=== PATIENT | male | born 1965 | race Caucasian/White ===

== ENCOUNTER → 2017-03-19 | Outpatient (CLI) | payer BC ==
[~2017-03-19] MED LIST: ALL100 PO; AMLO-114 PO; AMR2 PO; ASPI81TA28 PO; ATOR-22 PO; CETI10TA84 PO; GLC/500 PO; HYDR25TA4 PO; LISI40TA PO; LOSA100T65 PO; LSN40 PO; METF500T5 PO; METH1TAB81 PO; MULT-506 PO; ONDA4TAB7 SL; TRAM-10 PO
--- NOTE | 2017-03-19 13:24 | DIAGNOSTIC IMAGING REPORT ---
RIGHT KNEE RADIOGRAPHS WITH COMPARISON STANDING AP RADIOGRAPH OF THE LEFT KNEE CLINICAL HISTORY: Posterior right knee pain. COMPARISON: None FINDINGS: Comparison standing AP radiograph of left knee show minimal osteophytosis. Alignment of the right knee is anatomic. There is no fracture or suspicious lesion. There is no joint effusion. There is mild joint space narrowing of the patellofemoral compartment with osteophytosis. IMPRESSION: 1. Mild osteoarthritis of the patellofemoral compartment of the right knee. 2. No acute fracture. Electronically signed by: Gutierrez Richards M.D. 03/19/2017 1:22 PM Dictated Date/Time: 03/19/2017 1:21 PM
== END | disposition home or self-care (01) ==
LOC: C.RDSM 13:08
PROVIDERS: ATTEND Physician Assistant
DX: M25.561 Pain in right knee (principal)

== ENCOUNTER → 2017-04-10 | Outpatient (CLI) | payer BC ==
--- NOTE | 2017-04-10 13:55 | DIAGNOSTIC IMAGING REPORT ---
PELVIS AND BILATERAL HIPS 3 VIEWS CLINICAL HISTORY: Bilateral hip pain. COMPARISON STUDY: Pelvis and hips 12/05/2013. 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 Heterotopic ossification surrounding the bilateral hips is not significantly change. No acute fracture or dislocation within the pelvis or hips. The hardware appears intact. No significant periprosthetic lucency. IMPRESSION: Chronic and postoperative changes. No significant change compared to the prior study. No fractures. Electronically signed by: Sergio Arevalo M.D. 04/10/2017 1:54 PM Dictated Date/Time: 04/10/2017 1:51 PM
== END | disposition home or self-care (01) ==
LOC: C.RDSM 13:35
PROVIDERS: ATTEND Physician Assistant
DX: Z96.641 Presence of right artificial hip joint (principal); Z96.642 Presence of left artificial hip joint

== ENCOUNTER → 2017-06-03 | Outpatient (CLI) | payer BC ==
[~2017-06-03] MED LIST changes: -ALL100 PO; -AMR2 PO; -LOSA100T65 PO; -LSN40 PO; -METF500T5 PO
--- NOTE | 2017-06-03 15:27 | DIAGNOSTIC IMAGING REPORT ---
RIGHT ELBOW MIN 3 VIEWS CLINICAL HISTORY: Right elbow pain COMPARISON: None. DISCUSSION: There is mild displacement of the anterior humeral fat pad indicating a small effusion. No acute fractures are visualized. Arthritic changes are evident. There is an olecranon spur. There is spurring arising from the lateral distal humeral condyle IMPRESSION: 1. Small joint effusion 2. Arthritic changes 3. No acute fractures identified on conventional radiographic imaging Electronically signed by: Lc Denton M.D. 06/03/2017 3:26 PM Dictated Date/Time: 06/03/2017 3:25 PM
== END | disposition home or self-care (01) ==
LOC: C.RDSM 10:34
PROVIDERS: ATTEND Physician Assistant
DX: M25.521 Pain in right elbow (principal)

== ENCOUNTER → 2017-06-04 | Outpatient (CLI) | payer BC ==
--- NOTE | 2017-06-04 23:00 | DIAGNOSTIC IMAGING REPORT ---
RIGHT UPPER EXT JOINT WITHOUT CLINICAL HISTORY: 52 years-old Male presenting with RIGHT ELBOW PAIN Right. TECHNIQUE: Multisequence, multiplanar MR imaging of the right elbow was performed without the use of intravenous contrast. IV contrast: None. COMPARISON: Correlation made to plain radiographs of the right elbow from 06/03/2017. FINDINGS: Localizer images: Unremarkable. Elbow joint effusion noted. No bony edema. Loose body noted in the elbow joint along the inferior medial aspect of the radiocapitellar articulation (series 19 image 12). Subchondral cystic change noted along the adjacent medial aspect of the trochlea. Medial collateral ligament complex intact. Lateral collateral ligament complex intact. Intramuscular edema within the brachialis and proximal common flexor myotendinous junction. Triceps tendon with minimal intrasubstance signal possibly indicating tendinosis. Biceps tendon intact. IMPRESSION: No evidence of acute fracture. Elbow joint effusion with degenerative changes most pronounced along the medial trochlea, where there is an adjacent loose body. Intramuscular edema within the brachialis and proximal common flexor myotendinous junction, which could relate to acute muscle strain. Electronically signed by: Luisito Romero M.D. 06/04/2017 10:58 PM Dictated Date/Time: 06/04/2017 10:52 PM
== END | disposition home or self-care (01) ==
LOC: C.MRI 20:21
PROVIDERS: ATTEND Physician Assistant
DX: M25.521 Pain in right elbow (principal); M19.90 Unspecified osteoarthritis, unspecified site; R60.0 Localized edema; M25.421 Effusion, right elbow

== ENCOUNTER → 2017-06-05 | Outpatient (CLI) | payer BC ==
[2017-06-09 09:31] LABS: LYME DNA PCR CSF OR SYNOVIAL Not detected (Not Detected); LYME DNA SOURCE Synovial Fluid
== END | disposition home or self-care (01) ==
LOC: C.LABSPEC 15:14
PROVIDERS: ATTEND Physician Assistant
DX: M17.11 Unilateral primary osteoarthritis, right knee (principal); M24.029 Loose body in unspecified elbow; M25.429 Effusion, unspecified elbow

== ENCOUNTER → 2017-06-16 | Day surgery (SDC) | payer BC ==
[2017-06-12 09:33] VITALS: Ht 190.5 cm; Wt 156.3 kg
--- NOTE | 2017-06-12 10:06 | PAT Medication Instructions ---
Service Date Jun 12, 2017. Current Home Medication List Amlodipine (Norvasc), 10 MG PO QAM Aspirin (Aspirin Ec), 81 MG PO QAM Atorvastatin (Lipitor), 20 MG PO HS Cetirizine (Zyrtec), 10 MG PO QAM Hydrochlorothiazide (Hctz), 25 MG PO QAM Lisinopril (Zestril), 40 MG PO QAM Metformin Hcl (Glucophage), 500 MG PO BID Methylprednisolone (Medrol), 4 MG PO UD Multivitamin (Multivitamin), 1 TAB PO QAM Tramadol (Ultram), 1-2 TAB PO Q4-6HOURS PRN for Pain Medication Instructions For Your Scheduled Surgery Methylprednisolone (Medrol), 4 MG PO UD (completed 06/11/17) - Check with surgeon for instructions; Aspirin (Aspirin Ec), 81 MG PO QAM - Hold the following medications 48 hours prior to surgery: Metformin Hcl (Glucophage), 500 MG PO BID - Hold the following medications the morning of surgery: Cetirizine (Zyrtec), 10 MG PO QAM Hydrochlorothiazide (Hctz), 25 MG PO QAM Lisinopril (Zestril), 40 MG PO QAM Multivitamin (Multivitamin), 1 TAB PO QAM - Take the following medications the morning of surgery with a sip of water: Tramadol (Ultram), 1-2 TAB PO Q4-6HOURS PRN for Pain (okay to take up to 4 hours prior to surgery if needed) Amlodipine (Norvasc), 10 MG PO QAM - Take the following medications as scheduled the night before surgery: Tramadol (Ultram), 1-2 TAB PO Q4-6HOURS PRN for Pain (if needed) Atorvastatin (Lipitor), 20 MG PO HS If you have any questions please call us at [phone] or [phone] or [phone]
[2017-06-12 10:35] LABS: HEMATOCRIT 44.9 % (42-52); MEAN CELL VOLUME 85.4 fL (80-100); MEAN CORPUSCULAR HEMOGLOBIN 29.8 pg (25-34); MEAN PLATELET VOLUME 10.4 fL (7.4-10.4); PLATELET COUNT 244 K/uL (130-400); RED BLOOD COUNT 5.26 M/uL (4.7-6.1); WHITE BLOOD COUNT 9.99 K/uL (4.8-10.8)
[2017-06-12 10:50] LABS: INR 0.9 (0.9-1.1); PARTIAL THROMBOPLASTIN RATIO 1.1; PROTHROMBIN TIME (PATIENT) 10.1 SECONDS (9.0-12.0)
[~2017-06-16] VITALS: Ht 190.5 cm; Wt 156.3 kg
[~2017-06-16] MED LIST changes: +ATROPINE SULFATE 0.1 MG/ML 5ML SYR IV PRN; +CEFAZOLIN 3000 MG/65 ML D5W IV SCH; +DEXAMETHASONE SOD INJ 4 MG/ML VIAL ONE; +EpHEDrine SULFATE INJ 50 MG/ML AMP IV PRN; +FENTANYL CITRATE INJ 50 MCG/1 ML 2 ML VIAL IV PRN; +FENTANYL CITRATE INJ 50 MCG/1 ML 2 ML VIAL ONE; +GLYCOPYRROLATE INJ 0.2 MG/ML VIAL ONE; +HYDROCODONE/ACETAMOPHEN 5/325MG TAB PO PRN; +INSULIN HUMAN REGULAR PER UNIT 5 UNITS in SYRINGE 4.95 ML IV STA; +LACTATED RINGER'S 1000ML 1,000 ML IV SCH; +LIDOCAINE HCL 2% 2 ML VIAL (20MG/ML) ONE; +METOCLOPRAMIDE HCL INJ 5 MG/ML 2 ML VIAL IV STA; +METOCLOPRAMIDE HCL INJ 5 MG/ML 2 ML VIAL ONE; +MIDAZOLAM HCL 1 MG/ML 2ML VIAL ONE; +NEOSTIGMINE METHYLSULFATE 5 MG/5 ML SYR ONE; +NURSING VERBAL MED ORDER ONE; +NovoLIN-R INSULIN PER UNIT CHARGE ONE; -ONDA4TAB7 SL; +ONDANSETRON INJ 2 MG/ML 2 ML VIAL IV PRN; +ONDANSETRON INJ 2 MG/ML 2 ML VIAL ONE; +PROPOFOL IV EMULSION 10 MG/ML 20 ML VIAL IV ONE; +ROCURONIUM BROMIDE 10 MG/ML 5 ML VIAL IV ONE; +SODIUM CHLORIDE 0.9% 1000ML 1,000 ML IV SCH
--- NOTE | 2017-06-16 06:43 | History & Physical Bridge Note ---
H&P Re-Evaluation Bridge Note: I have examined the patient, reviewed the History & Physical and in the interval since the performance of the History & Physical I have noted the following changes of clinical significance: No changes noted
--- NOTE | 2017-06-16 06:45 | Discharge Instructions ---
Discharge Instructions Date of Service Jun 16, 2017. Visit Reason for Visit: Loose Body Right Elbow Discharge Discharge Diagnosis / Problem: same Discharge Goals Goal(s): Decrease discomfort Medications Stopped Medications Name(s): Glucophage stopped x 48 hrs. Restart Stopped Medication(s): resume meds tonight Activity Recommendations Activity Limitations: as noted below Lifting Limitations: until after follow-up appointment Exercise/Sports Limitations: until after follow-up appointment May Resume Sexual Activity: when tolerated Shower/Bathe: keep incision dry Driving or Machine Use: resume 3 days after discharge Anesthesia . Post Anesthesia Instructions: If you have had General Anesthesia or IV Sedation: * Do not drive today. * Resume driving when surgeon permits. * Do not make important decisions or sign legal documents today. * Call surgeon for: 1. Temperature elevations greater than 101 degrees F. 2. Uncontrollable pain. 3. Excessive bleeding. 4. Persistent nausea and vomiting. 5. Medication intolerance (nausea, vomiting or rash). * For nausea and vomiting use only clear liquids such as: tea, soda, bouillon until nausea subsides, then gradually increase diet as tolerated. * If you have any concerns or questions, call your surgeon's office. If physician is unavailable and it is an emergency, call 911 or go to the nearest emergency room. . Instructions / Follow-Up Instructions / Follow-Up DIET: * Resume previous diet. MEDICATIONS: * Please take your prescriptions as instructed at your pre-op appointment and/ or see medication discharge instructions listed above. * If concerns develop, call your physician's office at . SPECIAL CARE INSTRUCTIONS: * Ice/Elevate as instructed. * Keep dressing clean, dry, intact. * Your surgical extremity may be discolored due to prepping agents used on the skin. A bluish-green tint is a normal variant and should not cause alarm. Call your doctor at [phone] if: * Temperature above 101 degrees * Pain not relieved by pain medicine ordered * There is increased drainage or redness from any incision * You have any unanswered questions, problems or concerns. FOLLOW UP VISIT: * If not already scheduled, please call the office at to schedule a follow-up appointment. Diet Recommendations Recommended Home Diet: resume previous diet Procedures Procedures Performed: see op note Pending Studies Studies pending at discharge: no Medical Emergencies . Who to Call and When: Medical Emergencies: If at any time you feel your situation is an emergency, please call 911 immediately. . Non-Emergent Contact Non-Emergency issues call your: Specialist Call Non-Emergent contact if: temperature is above 101.5 . . "Provider Documentation" section prepared by Albino Del Rosario. .
--- NOTE | 2017-06-16 08:45 | [facility] Post Operative Brief Note ---
Immediate Operative Summary Operative Date Jun 16, 2017. Pre-Operative Diagnosis Loose Body Right Elbow Post-Operative Diagnosis Same Procedure(s) Performed Right Elbow Arthroscopic Removal Of Loose Body Surgeon Dr. Del Rosario Fire Apparatus Engineer Surgeon(s) Ananth Lagos PA-C Estimated Blood Loss Trace Findings see op note Fluids (cc crystalloids) 1400cc Specimens None Drains none Anesthesia GET Complication(s) None Disposition Recovery Room / PACU
--- NOTE | 2017-06-16 09:21 | OPERATIVE REPORT ---
DATE OF OPERATION: 06/16/2017 SURGEON: Albino Del Rosario MD TELEMARKETING AGENT: René Lagos PA-C. No resident or fellow available. PREOPERATIVE DIAGNOSIS: Osteochondral loose body, right elbow. POSTOPERATIVE DIAGNOSIS: Same. OPERATION PERFORMED: Arthroscopy of right elbow and debridement and removal osteochondral loose body. PERIOPERATIVE SITUATION: Medically cleared male with intractable elbow pain and catching. Physical exam, x-ray, and MRI scan consistent with the above diagnoses of the right thumb and elbow. He wants to proceed with surgical debridement. DESCRIPTION OF PROCEDURE: The patient was identified, site verified, consent verified, and 3 grams of Ancef confirmed as being given. The right upper extremity was prepped and draped in the usual routine fashion with the patient in the prone position, carefully padded appropriately. Tourniquet was applied and then inflated to 250 mmHg for a total of approximately 35 minutes. An anterior portal made 2 cm proximal to the medial epicondyle just anterior to the humerus. After the joint was then insufflated with 35 mL of saline, the joint was entered without difficulty. Under local control, working laterally, a spinal needle was placed just anterior and distal to the radiocapitellar joint. This allowed good joint and treat. A skin scratch was made with blunt dissection into the elbow joint. Care was taken to protect any of the nerves. The anterior elbow was then debrided. Synovectomy completed. There were no loose bodies noted there. Once this was completed, a posterior portal was made in the soft spot. Immediately encountered was a large loose body. An accessory portal was then made with needle localization posterolaterally, slightly superior. Blunt dissection made after the skin scratch and then, the joint entered posteriorly and then the piece removed after the portal was enlarged. Size of the piece was approximately a 15 mm long, 15 mm wide and 5-6 mm thick. Area was then debrided. No additional pathology was found. There was no other loose debris around the radiocapitellar joint. The procedure was then terminated. All instruments and fluid removed and the 4 portals closed with 3-0 nylon suture. The one large portal for removing the loose body, the accessory superior posterior portal was closed with 2-0 plain and the nylon. Appropriate soft tissue dressing applied and the patient transferred to recovery room in satisfactory condition having tolerated the procedure well. Estimated blood loss trace. Crystalloid 1400 mL. Overall prognosis for this elbow should be good as there was no major degenerative disease noted anteriorly or posteriorly. I attest to the content of the Intraoperative Record and any orders documented therein. Any exceptions are noted below. MTDD
[2017-06-16 10:28] VITALS: TEMP 37.1
--- NOTE | 2017-06-16 10:45 | Anesthesia Progress Nt - [facility] ---
Anesthesia Post Op Note Date & Time Jun 16, 2017 at 10:45 Vital Signs Vital Signs Past 12 Hours Date Time Temp Pulse Resp B/P (MAP) Pulse Ox O2 Delivery O2 Flow Rate FiO2 06/16/17 10:28 37.1 74 20 145/78 (100) 96 06/16/17 09:56 127/80 06/16/17 09:53 65 14 06/16/17 09:53 36.9 95 Room Air 06/16/17 09:53 65 14 94 06/16/17 09:52 66 11 93 06/16/17 09:52 66 11 06/16/17 09:51 146/85 06/16/17 09:47 64 9 06/16/17 09:47 65 9 93 06/16/17 09:46 145/72 06/16/17 09:42 66 17 06/16/17 09:42 66 17 94 06/16/17 09:41 147/70 06/16/17 09:37 71 18 95 06/16/17 09:37 71 18 06/16/17 09:36 151/79 06/16/17 09:32 75 18 06/16/17 09:32 76 18 97 06/16/17 09:31 148/92 06/16/17 09:27 74 21 06/16/17 09:27 74 21 99 06/16/17 09:26 166/89 06/16/17 09:25 74 22 06/16/17 09:25 75 22 99 06/16/17 09:21 160/92 06/16/17 09:20 79 15 06/16/17 09:20 78 15 98 06/16/17 09:16 160/85 06/16/17 09:15 79 13 98 06/16/17 09:15 79 13 06/16/17 09:11 167/88 06/16/17 09:10 81 19 06/16/17 09:10 81 19 98 06/16/17 09:06 160/92 06/16/17 09:05 83 17 97 06/16/17 09:05 83 17 06/16/17 09:01 169/99 06/16/17 09:00 36.7 90 18 169/99 96 Mask 6 06/16/17 09:00 90 06/16/17 09:00 90 183/120 96 06/16/17 06:27 36.7 67 20 160/102 (121) 95 Room Air Notes Mental Status: alert / awake / arousable, participated in evaluation Pt Amnestic to Procedure: Yes Nausea / Vomiting: adequately controlled Pain: adequately controlled Airway Patency, RR, SpO2: stable & adequate BP & HR: stable & adequate Hydration State: stable & adequate Anesthetic Complications: no major complications apparent
--- NOTE | 2017-06-16 10:50 | [facility] Operative Report ---
Operative Report Operative Date Jun 16, 2017. Pre-Operative Diagnosis Loose Body Right Elbow Post-Operative Diagnosis Right elbow same Procedure(s) Performed Right Elbow Arthroscopic debridement, Removal Of Loose Body Surgeon Dr. Del Rosario Monitoring Analyst Surgeon(s) Ananth Lagos PA-C Estimated Blood Loss Trace Findings Right elbow loose body and synovitis Fluids (cc crystalloids) 1400cc Specimens None Drains none Complication(s) None Disposition Recovery Room / PACU Indications This 52-year-old white male presented to the office with complaints of right elbow pain and loss of motion. Preoperative imaging was obtained. He tried conservative care measures without success. He elected to proceed with surgical intervention after being educated about potential risks and outcomes. Description of Procedure Patient was taking the operating room where he was given general anesthesia. He was prepped and draped in usual sterile fashion. Please see Dr. Del Rosario's operative report for specifics of the procedure. I was present for the entire case from initial patient positioning through final wound closure. Assistance was provided in patient positioning, arthroscopy, and final wound closure. Patient was taken to the recovery room in satisfactory condition. I attest to the content of the Intraoperative Record and any orders documented therein. Any exceptions are noted below.
[2017-06-16 10:57] VITALS: BP 122/74; PULSE 73; O2SAT 95
== END | disposition home or self-care (01) ==
LOC: X.SURG 06:03
PROVIDERS: ATTEND Physical Medicine & Rehabilitation Sports Medicine
DX: M24.021 Loose body in right elbow (principal); I10 Essential (primary) hypertension; E78.00 Pure hypercholesterolemia, unspecified; E11.9 Type 2 diabetes mellitus without complications; E66.9 Obesity, unspecified; M19.90 Unspecified osteoarthritis, unspecified site; Z79.82 Long term (current) use of aspirin; Z79.84 Long term (current) use of oral hypoglycemic drugs; Z79.899 Other long term (current) drug therapy

== ENCOUNTER → 2017-07-06 | Outpatient (CLI) | payer BC ==
[~2017-07-06] MED LIST changes: -ATROPINE SULFATE 0.1 MG/ML 5ML SYR IV PRN; -CEFAZOLIN 3000 MG/65 ML D5W IV SCH; -DEXAMETHASONE SOD INJ 4 MG/ML VIAL ONE; -EpHEDrine SULFATE INJ 50 MG/ML AMP IV PRN; -FENTANYL CITRATE INJ 50 MCG/1 ML 2 ML VIAL IV PRN; -FENTANYL CITRATE INJ 50 MCG/1 ML 2 ML VIAL ONE; -GLYCOPYRROLATE INJ 0.2 MG/ML VIAL ONE; -HYDROCODONE/ACETAMOPHEN 5/325MG TAB PO PRN; -INSULIN HUMAN REGULAR PER UNIT 5 UNITS in SYRINGE 4.95 ML IV STA; -LACTATED RINGER'S 1000ML 1,000 ML IV SCH; -LIDOCAINE HCL 2% 2 ML VIAL (20MG/ML) ONE; -METOCLOPRAMIDE HCL INJ 5 MG/ML 2 ML VIAL IV STA; -METOCLOPRAMIDE HCL INJ 5 MG/ML 2 ML VIAL ONE; -MIDAZOLAM HCL 1 MG/ML 2ML VIAL ONE; -NEOSTIGMINE METHYLSULFATE 5 MG/5 ML SYR ONE; -NURSING VERBAL MED ORDER ONE; -NovoLIN-R INSULIN PER UNIT CHARGE ONE; -ONDANSETRON INJ 2 MG/ML 2 ML VIAL IV PRN; -ONDANSETRON INJ 2 MG/ML 2 ML VIAL ONE; -PROPOFOL IV EMULSION 10 MG/ML 20 ML VIAL IV ONE; -ROCURONIUM BROMIDE 10 MG/ML 5 ML VIAL IV ONE; -SODIUM CHLORIDE 0.9% 1000ML 1,000 ML IV SCH
--- NOTE | 2017-07-06 10:36 | DIAGNOSTIC IMAGING REPORT ---
MRI OF THE RIGHT KNEE WITHOUT CONTRAST CLINICAL HISTORY: Osteoarthritis of right knee. Severe right knee pain. COMPARISON STUDY: Right knee radiograph March 19, 2017. TECHNIQUE: Utilizing a 1.5 Anna magnet and dedicated coil, multiplanar, multiecho imaging of the right knee was performed without intravenous or intraarticular contrast. FINDINGS: Alignment of the right knee is anatomic. There is no suspicious marrow replacement. There is no significant marrow edema. Extensor mechanism is intact. There is a small to moderate right knee joint effusion. The anterior and posterior cruciate ligaments are intact. The medial collateral ligament and lateral collateral ligament complex are also intact. No medial meniscal tear is identified although there is intrasubstance signal within the posterior horn of the medial meniscus without definite articular extension. There is a severe complex tear of the lateral meniscus which involves the entirety of the lateral meniscus which is partially extruded. An adjacent complex multiloculated cystic abnormality is noted along the lateral joint space. The largest component measures 2.8 x 2.7 x 0.9 cm. There is mild chondrosis within the medial compartment note is made of moderate chondrosis within the patellofemoral compartment and severe chondrosis within the lateral compartment. IMPRESSION: 1. Severe complex tear of the lateral meniscus which involves the entirety of the lateral meniscus which is partially extruded. Multiloculated cystic abnormality lateral to the joint space and meniscus which suggests a multiloculated parameniscal cyst. 2. Severe chondrosis within the lateral compartment, moderate chondrosis within the patellofemoral compartment and mild chondrosis within the medial compartment. 3. Intact cruciate and collateral ligaments. 4. Small to moderate right knee joint effusion. Electronically signed by: Gutierrez Richards M.D. 07/06/2017 10:35 AM Dictated Date/Time: 07/06/2017 10:26 AM
== END | disposition home or self-care (01) ==
LOC: C.MRI 09:01
PROVIDERS: ATTEND Physical Medicine & Rehabilitation Sports Medicine
DX: M17.11 Unilateral primary osteoarthritis, right knee (principal)

== ENCOUNTER → 2017-07-27 | Outpatient (CLI) | payer BC ==
[~2017-07-27] MED LIST changes: -METH1TAB81 PO; -TRAM-10 PO
--- NOTE | 2017-07-27 10:49 | DIAGNOSTIC IMAGING REPORT ---
RENAL ULTRASOUND CLINICAL HISTORY: Chronic kidney disease. COMPARISON STUDY: None. TECHNIQUE: Sonography of the kidneys and the urinary bladder was performed. FINDINGS: Incidental note is made of probable fatty infiltration of the liver. There is no hydronephrosis. The right kidney measures 11.2 x 4.4 x 4.4 cm and the left measures 10.6 x 5.3 x 5.7 cm. Renal echogenicity, size and cortical thickness are normal. No calculi or renal masses are identified by sonography. The right ureteral jet was not visualized. IMPRESSION: 1. No hydronephrosis. 2. Unremarkable sonographic appearance of the kidneys. 3. Probable fatty infiltration of the liver. Electronically signed by: Gutierrez Richards M.D. 07/27/2017 10:48 AM Dictated Date/Time: 07/27/2017 10:46 AM
== END | disposition home or self-care (01) ==
LOC: C.ULTR 09:40
PROVIDERS: ATTEND Family Medicine
DX: N18.9 Chronic kidney disease, unspecified (principal)

== ENCOUNTER → 2017-07-28 | Day surgery (SDC) | payer BC ==
[2017-07-16 07:56] VITALS: Ht 190.5 cm; Wt 156.4 kg
[~2017-07-28] VITALS: Ht 190.5 cm; Wt 156.4 kg
[~2017-07-28] MED LIST changes: +ACETAMINOPHEN 1000 MG/100 ML IV IV SCH; +ATROPINE SULFATE 0.1 MG/ML 5ML SYR IV PRN; +BUPIVACAINE/EPINEPHRINE 0.5% MPF 1:200,000 30 ML VIAL ONE; +CEFAZOLIN 3000 MG/65 ML D5W IV SCH; +DEXAMETHASONE SOD INJ 4 MG/ML VIAL ONE; +EpHEDrine SULFATE INJ 50 MG/ML AMP IV PRN; +FENTANYL CITRATE INJ 50 MCG/1 ML 2 ML VIAL IV PRN; +FENTANYL CITRATE INJ 50 MCG/1 ML 2 ML VIAL ONE; +HYDROmorphone INJ 1 MG/ML SYR IV PRN; +INSULIN HUMAN REGULAR PER UNIT 6 UNITS in SYRINGE 0 ML IV SCH; +INSULIN HUMAN REGULAR PER UNIT 6 UNITS in SYRINGE 0 ML IV STA; +KETOROLAC TROMETHAMINE 30 MG/ML VIAL ONE; +LIDOCAINE HCL 2% 2 ML VIAL (20MG/ML) ONE; +MIDAZOLAM HCL 1 MG/ML 2ML VIAL ONE; +MORPHINE SULFATE PF 2MG/2ML SYR ONE; +NovoLIN-R INSULIN PER UNIT CHARGE ONE; +ONDANSETRON INJ 2 MG/ML 2 ML VIAL IV PRN; +ONDANSETRON INJ 2 MG/ML 2 ML VIAL ONE; +PROPOFOL IV EMULSION 10 MG/ML 20 ML VIAL IV ONE; +SODIUM CHLORIDE 0.9% 1000ML 1,000 ML IV SCH
--- NOTE | 2017-07-28 06:47 | Discharge Instructions ---
Discharge Instructions Date of Service Jul 28, 2017. Visit Reason for Visit: Right Knee Lateral Meniscus Tear Discharge Discharge Diagnosis / Problem: same/djd Discharge Goals Goal(s): Decrease discomfort, Improve function Medications Stopped Medications Name(s): Metformin, last dose 07/25/17 Activity Recommendations Activity Limitations: as noted below Lifting Limitations: until after follow-up appointment Exercise/Sports Limitations: until after follow-up appointment May Resume Sexual Activity: when tolerated Shower/Bathe: keep incision dry Driving or Machine Use: resume 1 day after discharge Weightbearing Status: Right weightbearing (as tolerated) Anesthesia . Post Anesthesia Instructions: If you have had General Anesthesia or IV Sedation: * Do not drive today. * Resume driving when surgeon permits. * Do not make important decisions or sign legal documents today. * Call surgeon for: 1. Temperature elevations greater than 101 degrees F. 2. Uncontrollable pain. 3. Excessive bleeding. 4. Persistent nausea and vomiting. 5. Medication intolerance (nausea, vomiting or rash). * For nausea and vomiting use only clear liquids such as: tea, soda, bouillon until nausea subsides, then gradually increase diet as tolerated. * If you have any concerns or questions, call your surgeon's office. If physician is unavailable and it is an emergency, call 911 or go to the nearest emergency room. . Instructions / Follow-Up Instructions / Follow-Up The following are instructions to follow after your Arthroscopic Knee Surgery. ACTIVITY RECOMMENDATIONS: * Minimize activity until your first visit after surgery. * No excessive walking, jogging, sports or laboring. * Return to activity is individualized. Most patients are able to return to every day activities within one month. * Return to sports or intensive labor usually occurs at 2-3 months. * Driving is not permitted until at least your first postoperative visit at a minimum. Please ask your doctor when it is safe to resume driving. If you have an automatic vehicle and your left leg has been operated on, then you may begin driving as soon as you are comfortable and can drive safely. SCHOOL/WORK RECOMMENDATIONS: * You may return to sedentary work or school when you are feeling more comfortable. This is usually 3-7 days after surgery. * Expect increased discomfort with increased activity. Continue to elevate and ice the leg as much as possible. MEDICATIONS: * You will have a prescription for pain medication and an anti-inflammatory medication after surgery. * Use the pain medication for severe pain and the anti-inflammatory for less severe pain. Once the pain medication has run out, try to use the anti-inflammatory medication. If this is not effective, contact the office for assistance. * The pain medication may cause nausea, constipation and drowsiness. You should see how they affect you before driving or similar activity. * The anti-inflammatory medication may cause stomach upset and bleeding. If this occurs let your doctor know immediately . * Take a stool softener like Colace or a laxative like Senokot to prevent constipation. DIET: * Resume previous diet. SPECIAL CARE: ICE: You have the option of an ice cooler, gel packs or ice bags. * If you have an ice cooler, refer to the instructions for that device. The ice cooler may be used continuously. * If you do not have an ice cooler, you will need to use ice bags or gel packs. Do not apply ice directly to the skin. Use a thin dressing or collette shirt between the skin and ice bag. Apply ice for 20-30 minutes and repeat every 2-4 hours. This is especially important for the first 7-10 days after surgery. Once the pain improves, use ice as needed. ELEVATION: * Keep your leg elevated at or above the level of your heart as much as possible. * Expect some increased discomfort and swelling if you are standing for any length of time. * When lying down, avoid placing anything under your knee. Rather, prop your leg up by placing several pillows under your heel or calf. DRESSING: * Your dressing will be changed at your first therapy appointment approximately 4-5 days after surgery. Band-aids, tape strips or gauze may be applied. You may then change your dressing daily. * Reapply dressing followed by the Blair wrap or Tubi-district manager stockinet and EBIce cooling pad (if chosen). * Always wash your hands prior to touching the incision area. * Once the stitches are removed, you may leave the wound open to air or cover with an Blair wrap or Tubi-district manager stockinet. * If you have been given a white elastic stocking (BESSIE hose), wear as much as possible for the first 1-3 weeks depending on swelling. * Expect some bloody drainage for the first few days after surgery. * Leave the tape strips, if present, in place for 5-7 days. * Band-aids and gauze may be changed daily. CRUTCHES: * You will need to use crutches after surgery. * You may gradually progress to full weight bearing as tolerated and wean off the crutches unless otherwise advised. * Your therapist can provide assistance weaning off crutches. * Patients who have a microfracture done may need to be toe-touch weight- bearing for 4-6 weeks. BATHING: * You may shower or sponge-bathe immediately after surgery. * The dressing will need to be covered with a plastic bag or plastic wrap until the dressing is changed on the fourth or fifth day after surgery. * Once the dressing has been changed on the fourth or fifth day after surgery, you may shower and get the incision wet. * Wash with regular soap and water. * Do not bathe (submerge the incision), soak, swim or use a hot tub until the incision is completely healed over with normal skin and the doctor has given the OK to proceed. * There is no need to apply any ointments, powders or salves to your incision. * Do not apply alcohol or hydrogen peroxide directly to the incision. * Diluted peroxide (50:50 mixture with sterile saline) may be used to clean dried blood from around the incision area. BRACE: * Bracing is generally not needed after routine Arthroscopic Knee surgery. THERAPY: * You will begin therapy four or five days after surgery. * Organized therapy with the therapist is important for the first 4-6 weeks after surgery. During that time you will attend therapy 1-3 times per week. * You will also need to do daily exercises for range of motion and strength as instructed. PROBLEMS/QUESTIONS: * If you have any problems such as severe pain, numbness, tingling or high fevers or if you have any questions, please contact the office at [phone]. * It is not uncommon to have some numbness and tingling after the surgery especially if you have had a nerve block done. This should gradually improve over the first 1- 2 days. If this persists longer or worsens please contact the office. FOLLOW UP VISIT: * If not already scheduled, please call the office at to schedule a follow-up appointment for 10 days, 6 weeks and 3 months after surgery. Diet Recommendations Recommended Home Diet: diabetes diet Procedures Procedures Performed: see op note Pending Studies Studies pending at discharge: no Medical Emergencies . Who to Call and When: Medical Emergencies: If at any time you feel your situation is an emergency, please call 911 immediately. . Non-Emergent Contact Non-Emergency issues call your: Specialist Call Non-Emergent contact if: temperature is above 101.5, wound has increased drainage, wound has increased redness, wound has increased pain . . "Provider Documentation" section prepared by Albino Del Rosario. .
[2017-07-28] MEDS: LACTATED RINGER'S 1000ML 1,000 ML IV SCH ×2 (06:56→08:36)
--- NOTE | 2017-07-28 07:44 | [facility] Post Operative Brief Note ---
Immediate Operative Summary Operative Date Jul 28, 2017. Pre-Operative Diagnosis Right Knee Lateral Meniscus Tear/djd Post-Operative Diagnosis Same Procedure(s) Performed Right Knee Arthroscopy, Partial Lateral Meniscectomy, Chondroplasty Patellar Femoral Joint Lateral Compartment, Exam Under Anesthesia Surgeon Dr. Del Rosario School Bus Driver/Teacher Assistant Surgeon(s) Dr. Bryant; Valerie Lau PA-C Estimated Blood Loss Trace Findings see op note Fluids (cc crystalloids) 650cc Specimens None Drains none Anesthesia LMA/IA block Complication(s) None Disposition Recovery Room / PACU
--- NOTE | 2017-07-28 07:55 | [facility] Operative Report ---
Operative Report Operative Date Jul 28, 2017. Pre-Operative Diagnosis Right Knee Lateral Meniscus Tear/djd Post-Operative Diagnosis Same Procedure(s) Performed Right Knee Arthroscopy, Partial Lateral Meniscectomy, Chondroplasty Patellar Femoral Joint Lateral Compartment, Exam Under Anesthesia Surgeon Dr. Del Rosario Dining Room Supervisor Surgeon(s) Dr. Bryant; Valerie Lau PA-C Estimated Blood Loss Trace Findings NA Fluids (cc crystalloids) 650cc Specimens None Complication(s) None Disposition Recovery Room / PACU I attest to the content of the Intraoperative Record and any orders documented therein. Any exceptions are noted below.
--- NOTE | 2017-07-28 08:11 | OPERATIVE REPORT ---
DATE OF OPERATION: 07/28/2017 SURGEON: Albino Del Rosario MD SOFTWARE APPLICATIONS ENGINEER: Manny. SECOND SOFTWARE APPLICATIONS ENGINEER: Sid. PREOPERATIVE DIAGNOSIS: Lateral meniscus tear with degeneration of his lateral compartment of his right knee. POSTOPERATIVE DIAGNOSIS: Same with degenerative joint disease patellofemoral joint. OPERATIONS PERFORMED: 1. Exam under anesthesia. 2. Diagnostic arthroscopy. 3. Extensive chondroplasty, lateral compartment and patellofemoral joint. 4. Partial lateral meniscectomy. PERIOPERATIVE SITUATION: Medically cleared male with intractable knee pain who has significant discomfort. Physical exam, x-ray and MRI scan consistent with degenerative lateral meniscus tear. He is only 52, so it was elected to proceed with arthroscopic debridement even though we know he has degenerative disease to try to preserve his knee for as long as possible. He understands this may not completely eliminate his symptoms. Consent was obtained, see list. DESCRIPTION OF PROCEDURE: The patient appropriately identified, site verified, consent verified, 3 grams of Ancef confirmed as being given. The right lower extremity was prepped in the usual routine fashion. Care taken to protect his hips. He has bilateral hip replacements. The knee was then sterilely injected with 20 mL of 0.5% Marcaine with epinephrine and 5 mg Duramorph for postoperative pain control. The portals were then injected with 3 mL of 0.5% Marcaine with epinephrine. Inspection of the joint revealed extensive synovitis. This was all debrided at the end of the case and pathologic plica medially was resected at the end. The medial compartment had some minor scuffing and some minor creasing of the medial meniscus, but no unstable flaps. The ACL and PCL were normal. The lateral compartment had grade 3-4 changes and unstable flaps were debrided. The lateral meniscus had a significant horizontal cleavage tear with unstable flaps and this was debrided to a stable base. The patellofemoral joint was then debrided of some articular disease and some synovitis. The articular surface, the disease of the trochlea was about 50% thickness and 50% size. The lateral compartment was grade 3+ throughout the entire distal femur and about 50% of the meniscus was resected. The procedure was then terminated after knee was copiously irrigated. All instruments and fluid removed. The portals closed with 4-0 nylon, dressed with Xeroform, 4 x 4 gauze, sterile Webril, ABD pads, above knee BESSIE stocking. Overall prognosis for this knee is guarded. DVT prophylaxis with Lovenox. Start tomorrow. I attest to the content of the Intraoperative Record and any orders documented therein. Any exception s are noted below.
--- NOTE | 2017-07-28 08:17 | Anesthesiology Progress Note ---
Anesthesia Post Op Note Date & Time Jul 28, 2017 at 08:16 Vital Signs Pain Intensity: 0 Vital Signs Past 12 Hours Date Time Temp Pulse Resp B/P (MAP) Pulse Ox O2 Delivery O2 Flow Rate FiO2 07/28/17 07:54 36.5 84 16 98/56 98 Mask 6 07/28/17 06:28 36.5 83 18 125/74 (91) 96 Room Air Notes Mental Status: alert / awake / arousable, participated in evaluation Pt Amnestic to Procedure: Yes Nausea / Vomiting: adequately controlled Pain: adequately controlled Airway Patency, RR, SpO2: stable & adequate BP & HR: stable & adequate Hydration State: stable & adequate Anesthetic Complications: no major complications apparent Anesthetic Complications: Blood sugar preop was 522 - given 6 units of IV insulin before going to the OR. Recheck 1 hour later was blood sugar of 472. Additional 6 units of insulin given. recheck 30 minutes later 411. Patient otherwise doing well. Patient instructed to take his normal dose of metformin as soon as he arrives home from the surgical center.
[2017-07-28 10:09] VITALS: BP 117/73; PULSE 73; TEMP 36.2; O2SAT 100
== END | disposition home or self-care (01) ==
LOC: X.SURG 06:14
PROVIDERS: ATTEND Physical Medicine & Rehabilitation Sports Medicine
DX: M23.200 Derangement of unspecified lateral meniscus due to old tear or injury, right knee (principal); M17.11 Unilateral primary osteoarthritis, right knee; I10 Essential (primary) hypertension; E11.9 Type 2 diabetes mellitus without complications; E78.00 Pure hypercholesterolemia, unspecified; E66.01 Morbid (severe) obesity due to excess calories; Z68.41 Body mass index [BMI] 40.0-44.9, adult; Z98.890 Other specified postprocedural states; Z96.643 Presence of artificial hip joint, bilateral; Z79.82 Long term (current) use of aspirin; Z79.899 Other long term (current) drug therapy; Z86.718 Personal history of other venous thrombosis and embolism; Z83.3 Family history of diabetes mellitus; Z82.49 Family history of ischemic heart disease and other diseases of the circulatory system

== ENCOUNTER → 2017-08-10 | Outpatient (CLI) | payer BC ==
--- NOTE | 2017-08-07 14:55 | DIAGNOSTIC IMAGING REPORT ---
RIGHT KNEE 4 VIEWS HISTORY: RT KNEE PAIN COMPARISON: Right knee 03/19/2017. FINDINGS: There is no fracture or dislocation. Small to moderate knee effusion. Tiny tricompartmental marginal osteophytes. Mild cartilage space narrowing within the lateral compartment of the knees. No radiopaque foreign bodies. IMPRESSION: 1. Small to moderate right knee effusion. 2. No acute fractures. 3. Mild right knee osteoarthritis, unchanged Electronically signed by: Sergio Arevalo M.D. 08/07/2017 2:54 PM Dictated Date/Time: 08/07/2017 2:52 PM
[~2017-08-10] MED LIST changes: -ACETAMINOPHEN 1000 MG/100 ML IV IV SCH; -ATROPINE SULFATE 0.1 MG/ML 5ML SYR IV PRN; -BUPIVACAINE/EPINEPHRINE 0.5% MPF 1:200,000 30 ML VIAL ONE; -CEFAZOLIN 3000 MG/65 ML D5W IV SCH; -DEXAMETHASONE SOD INJ 4 MG/ML VIAL ONE; -EpHEDrine SULFATE INJ 50 MG/ML AMP IV PRN; -FENTANYL CITRATE INJ 50 MCG/1 ML 2 ML VIAL IV PRN; -FENTANYL CITRATE INJ 50 MCG/1 ML 2 ML VIAL ONE; -HYDR25TA4 PO; -HYDROmorphone INJ 1 MG/ML SYR IV PRN; -INSULIN HUMAN REGULAR PER UNIT 6 UNITS in SYRINGE 0 ML IV SCH; -INSULIN HUMAN REGULAR PER UNIT 6 UNITS in SYRINGE 0 ML IV STA; -KETOROLAC TROMETHAMINE 30 MG/ML VIAL ONE; -LIDOCAINE HCL 2% 2 ML VIAL (20MG/ML) ONE; -MIDAZOLAM HCL 1 MG/ML 2ML VIAL ONE; -MORPHINE SULFATE PF 2MG/2ML SYR ONE; -NovoLIN-R INSULIN PER UNIT CHARGE ONE; -ONDANSETRON INJ 2 MG/ML 2 ML VIAL IV PRN; -ONDANSETRON INJ 2 MG/ML 2 ML VIAL ONE; -PROPOFOL IV EMULSION 10 MG/ML 20 ML VIAL IV ONE; -SODIUM CHLORIDE 0.9% 1000ML 1,000 ML IV SCH
== END | disposition home or self-care (01) ==
LOC: C.RDSM 17:04
PROVIDERS: ATTEND Physical Medicine & Rehabilitation Sports Medicine
DX: R52 Pain, unspecified (principal); M25.461 Effusion, right knee

== ENCOUNTER → 2017-11-10 | Outpatient (CLI) | payer BC ==
[~2017-11-10] MED LIST changes: +ALL100 PO; +AMR2 PO; -GLC/500 PO; -LISI40TA PO; +LSN40 PO; +METF500T5 PO
--- NOTE | 2017-11-10 16:04 | DIAGNOSTIC IMAGING REPORT ---
L KNEE 4 OR MORE CLINICAL HISTORY: LEFT KNEE PAIN pain COMPARISON: None. DISCUSSION: Moderate degenerative change of the medial and to lesser extent lateral joint compartments bilaterally. Moderate degenerative change patellofemoral joints. Small left knee joint effusion. No acute bony abnormality. There is no evidence for soft tissue swelling. IMPRESSION: Small left knee joint effusion. Moderate degenerative change of all major joint compartments of the knees bilaterally. The above report was generated using voice recognition software. It may contain grammatical, syntax or spelling errors. Electronically signed by: Rambo Murillo M.D. 11/10/2017 4:02 PM Dictated Date/Time: 11/10/2017 4:00 PM
== END | disposition home or self-care (01) ==
LOC: C.RDSM 08:00
PROVIDERS: ATTEND Physician Assistant
DX: M25.562 Pain in left knee (principal)

== ENCOUNTER 2019-11-09 06:15 | Inpatient (IN) ==
--- NOTE | 2019-10-11 12:23 | Anesthesiology Consultation ---
Date of Service October 11, 2019 Assessment & Plan (1) Encounter for pre-operative examination: CHECK BSG AM DOS Chart Review Chart Review: Acceptable Risk for Surgery (pending surgeon ordered PCP clearance done 10/10) and Patient seen in Pre Admission Testing Teaching & Discussion Instructed NPO after midnight before surgery, except medications with 15 cc of water. Medication instructions provided according to the PAT guidelines. History Surgery Operation Date: 11/09/19 08:50 Proposed Procedures p Left Total Knee Arthroplasty - Albino Del Rosario MD Height/Weight Height: 6 ft Weight: 166.7 kg Allergies Allergy/AdvReac Type Severity Reaction Status Date / Time No Known Allergies Allergy Verified 10/05/19 15:06 Medications Home Medications Medication Instructions Recorded Confirmed Last Taken amlodipine 10 mg PO QAM 03/08/19 10/05/19 03/21/19 06:10 aspirin [Aspir-81] 81 mg PO QAM 03/08/19 10/05/19 03/21/19 06:10 atorvastatin [Lipitor] 20 mg PO HS 03/08/19 10/05/19 03/21/19 21:00 cetirizine 10 mg PO QAM 03/08/19 10/05/19 03/21/19 06:10 glimepiride 2 mg PO QAM 03/08/19 10/05/19 03/21/19 06:10 losartan 100 mg PO QAM 03/08/19 10/05/19 03/21/19 06:10 metformin 750 mg PO PM 03/08/19 10/05/19 03/21/19 21:00 acetaminophen 1,000 mg PO Q6H PRN 03/22/19 10/05/19 03/20/19 ibuprofen 200 - 800 mg PO Q6H PRN 10/05/19 10/05/19 Unknown Past Medical History Medical History Arthritis Diabetes mellitus, type 2 Hx of gout Hyperlipidemia Hypertension Morbid obesity Osteoarthritis Exercise / Class Metabolic Activity II 4-5 Yardwork/Stairs/Walk up hill (Denies CP or SOB with 1 FOS) Past Family History Family History Father Obesity Diabetes Mother Hypertension Past Surgical History Surgical History Difficult airway for intubation 8/29/17 - Glidescope #4, ETT #8.0, HiLo Oral, Grade 1 View, Cords Clear, Atraumatic x 1 attempt H/O elbow surgery RIGHT SCOPE 06/16/17 - Glidescope #4, ETT #8.0, HiLo Oral, Grade 1 View, Cords Clear, Atraumatic x 1 attempt History of arthroscopy RIGHT KNEE History of arthroscopy of left knee History of total hip arthroplasty BILATERAL Past Anesthesia History No Hx of Anesthesia Complications, Difficult Airway (per records) and No Family Hx of Anesthesia Complications History of PONV No Hx of PONV and No Hx of Motion Sickness Social History Smoking Status: Never smoker Do You Dip or Chew Tobacco: Yes (1 CAN EVERY 3 DAYS, ADVISED NONE X 8 HOURS PRIOR TO SURGERY) Hx Alcohol Use: Yes Alcohol type: beer and hard liquor alcohol intake frequency: holidays/special occasions only Hx Substance Use: No substance use type: does not use Review of Systems Pt denies any recent chest pain, shortness of breath, palpitations, cough, fever or URI. Physical Exam Vital Signs BP: 148/78 P: 78bpm SPO2: 98% RA T: 98.8 F R: 20 Constitutional + morbidly obese ENMT Mouth: no dental restorations, no chipped teeth and no loose teeth Thyromental Distance: > or= 3.5 Finger Breadths (4) Mallampati Class: III Neck + thick neck (VERY); neck extension not limited Respiratory normal respiratory effort Auscultation: lungs clear to auscultation bilaterally and + diminished lung sounds (B/L) Cardiovascular Rate/Rhythm: regular rate and regular rhythm Heart Sounds: no murmur Vessels: no carotid bruit Testing Laboratory Results 10/11/19 12:05 PT 9.9 Seconds (9.0-12.0) 10/11/19 12:05 INR 1.0 (0.9-1.1) 10/11/19 12:05 APTT 27.3 Seconds (21.0-31.0) 10/11/19 12:05 Urine Color Dark Yellow 10/11/19 Unknown Urine Appearance Clear (Clear) 10/11/19 Unknown Urine pH 5.5 (4.5-7.5) 10/11/19 Unknown Ur Specific [place] 1.026 (1.000-1.030) 10/11/19 Unknown Urine Protein Negative (Negative) 10/11/19 Unknown Urine Glucose (UA) Negative (Negative) 10/11/19 Unknown Urine Ketones Trace (Negative) H 10/11/19 Unknown Urine Nitrite Negative (Negative) 10/11/19 Unknown Ur Leukocyte Esterase Negative (Negative) 10/11/19 Unknown 10/10/19 SODIUM: 140 POTASSIUM: 5.1 CHLORIDE: 103 CO2: 28 BUN: 20 CREATININE: 1.39 GLUCOSE: 143 A1C: 6.7% Electrocardiogram Date: 10/03/19 Findings: + NSR @ (68bpm) Left axis deviation. Chest X-Ray Date: 10/11/19 Findings: + NAD
--- NOTE | 2019-10-11 12:28 | PAT Medication Instructions ---
Medication Instructions Date of Service October 11, 2019 Home Medications amlodipine 10 mg PO QAM aspirin [Aspir-81] 81 mg PO QAM atorvastatin [Lipitor] 20 mg PO HS cetirizine 10 mg PO QAM glimepiride 2 mg PO QAM losartan 100 mg PO QAM metformin 750 mg PO PM acetaminophen 1,000 mg PO Q6H PRN ibuprofen 200 - 800 mg PO Q6H PRN ASK your surgeon for instructions ibuprofen 200 - 800 mg PO Q6H PRN DO NOT take the morning of surgery cetirizine 10 mg PO QAM glimepiride 2 mg PO QAM losartan 100 mg PO QAM Take morning of surgery With a small sip of water, OTHERWISE NOTHING TO EAT OR DRINK AFTER MIDNIGHT: amlodipine 10 mg PO QAM aspirin [Aspir-81] 81 mg PO QAM acetaminophen 1,000 mg PO Q6H PRN (if needed, may be taken up to four hours before surgery) Take evening before surgery atorvastatin [Lipitor] 20 mg PO HS metformin 750 mg PO PM acetaminophen 1,000 mg PO Q6H PRN Other Notes If you have any questions please call us at [phone] or [phone] or [phone] or [phone]
--- NOTE | 2019-10-11 13:04 | XRay Report ---
XR chest Pre-admission PA/Lat HISTORY: 54 years-old Male pat preoperative exam. COMPARISON: Chest radiograph 08/20/2017 TECHNIQUE: PA and lateral views of the chest FINDINGS: Cardiac silhouette is enlarged, unchanged. No pneumothorax, pleural effusion, focal airspace consolid ation or overt pulmonary edema. Degenerative changes of the shoulders and spine. IMPRESSION: No acute process. ACT 112: Negative or not required by law. The above report was generated using voice recognition software. It may contain grammatical, syntax o r spelling errors. Electronically signed by: Tera Monaco M.D. 10/11/2019 1:03 PM
[2019-10-11 13:23] LABS: Basophils # (auto) 0.02 K/uL (0-0.2); Basophils % (auto) 0.2 %; Eosinophils # (auto) 0.31 K/uL (0-0.5); Eosinophils % (auto) 3.8 %; Hemoglobin 14.3 g/dL (14.0-18.0); Immature Granulocytes # (auto) 0.02 K/uL (0.00-0.02); Immature Granulocytes % (auto) 0.2 %; Lymphocytes # (auto) 3.08 K/uL (1.2-3.4); Lymphocytes % (auto) 37.5 %; Mean Corpuscular Hemoglobin 28.7 pg (25-34); Mean Corpuscular Hgb Conc 33.3 g/dL (32-36); Mean Corpuscular Volume 86.3 fL (80-100); Mean Platelet Volume 10.3 fL (7.4-10.4); Monocytes # (auto) 0.59 K/uL (0.11-0.59); Monocytes % (auto) 7.2 %; Neutrophils # (auto) 4.19 K/uL (1.4-6.5); Neutrophils % (auto) 51.1 %; Platelet Count 243 K/uL (130-400); RDW Coefficient of Variation 13.4 % (11.5-14.5); RDW Standard Deviation 41.8 fL (36.4-46.3); Red Blood Count 4.98 M/uL (4.7-6.1); White Blood Count 8.21 K/uL (4.8-10.8)
[2019-10-11 13:37] LABS: Appearance Urine Clear (Clear); Bilirubin Urine Negative (Negative); Blood Urine Negative (Negative); Color Urine Dark Yellow; Glucose Urine UA Negative (Negative); Ketones Urine Trace (Negative); Leukocyte Esterase Urine Negative (Negative); Nitrite Urine Negative (Negative); Protein Urine Negative (Negative); Specific Gravity Urine 1.026 (1.000-1.030); Urobilinogen Urine Negative (Negative); pH Urine 5.5 (4.5-7.5)
[2019-10-11 13:40] LABS: Partial Thromboplastin Time 27.3 Seconds (21.0-31.0); Prothrombin Time 9.9 Seconds (9.0-12.0)
--- NOTE | 2019-10-13 12:31 | History and Physical Report ---
DATE OF ADMISSION: 11/09/2019 CHIEF COMPLAINT: Left knee pain. HISTORY OF PRESENT ILLNESS: This 54-year-old white male presents to the office with complaints of left knee pain that has been ongoing since 2018. It became worse in December of 2018. No specific injury. He previously had a steroid injection in the knee around [place] of last year that did not provide much relief. No catching or locking. No buckling. Pain is worse with weightbearing. It is affecting his ADLs. He notes occasional effusions. He previously underwent left knee arthroscopy with debridement and meniscectomy that showed end-stage DJD of the knee. He now elects to proceed with left total knee arthroplasty. No other complaints. Preoperative imaging has been obtained. PAST MEDICAL HISTORY: Significant for hypertension, elevated cholesterol, diabetes, obesity, osteoarthritis. PAST SURGICAL HISTORY: Bilateral hip replacements, right elbow arthroscopy, right knee arthroscopy, left knee arthroscopy March 22, 2019. SOCIAL HISTORY: The patient is . Employed. No tobacco use. No ETOH use. ALLERGIES: NKDA. CURRENT MEDICATIONS: Allopurinol 100 mg p.o. daily, amlodipine 10 mg p.o. daily, amoxicillin 500 mg p.r.n. with dental visits, aspirin 81 mg daily, atorvastatin 20 mg p.o. at bedtime, Zyrtec 10 mg daily p.r.n., glimepiride 2 mg p.o. daily, losartan 100 mg p.o. daily, metformin 750 mg p.o. daily. FAMILY HISTORY: Significant for heart disease, history of CABG, diabetes, hypertension, and obesity. REVIEW OF SYSTEMS: A total of 10 systems are reviewed and are significant only for above stated conditions. PHYSICAL EXAMINATION: VITAL SIGNS: Height 187.5 cm, weight 166.3 kilograms. BMI 47.3, temperature 37.0 oral, BP 138/88, pulse 75, O2 sat 95% on room air. GENERAL: Well-developed, well-nourished, morbidly obese, large middle-aged white male in no acute distress. Sitting in a chair. Alert and oriented. SKIN: Warm and dry with good turgor. No rashes or lesions. No ecchymosis or erythema. Mild intraarticular effusion in the left knee. HEENT: Normocephalic, atraumatic. Eyes PERRLA, EOMI. Nares patent bilaterally without turbinate enlargement. Oropharynx without erythema or exudate. No lesions noted. Uvula midline. Oral mucosa moist. Dental fillings are noted. HEART: RRR. No MGR. LUNGS: Clear to auscultation bilaterally. No crackles, rhonchi or wheezing. Good air movement. ABDOMEN: Obese. Bowel sounds present x4, soft, nontender. No organomegaly. No masses. MUSCULOSKELETAL: Left knee evaluation reveals a mild intraarticular effusion. Full internal extension. Flexion to greater than 90 degrees. This is somewhat limited by body habitus. Stable collateral ligaments. He has focal discomfort with palpation over the lateral compartment as well as the anterior knee. There is focal discomfort with palpation over the medial joint line as well. No defect in the patellar tendon or quadriceps tendon. Ambulatory with an antalgic gait. NEUROLOGIC: Gross sensation is intact across the lower extremities by soft touch. Cranial nerves II-XII are intact. DATA: Radiographic imaging previously obtained shows significant lateral compartment disease. Periarticular osteophytes, subchondral sclerosis, and joint space narrowing are all present. IMPRESSION: Left knee end-stage degenerative joint disease. PLAN: Postoperative prescriptions for Coumadin and Percocet will be provided at discharge from the hospital. Anticipate discharge to home with home health services. Postop PT visit has been made for 2 weeks after surgery. He has already received his medical clearance from his PCP. Preoperative lab work, EKG, and chest x-ray have been ordered. He already has crutches and a cane. Hemoglobin A1c previously obtained was 6.7. He states this has been well maintained.
[~2019-11-09 06:15] MED LIST changes: -ALL100 PO; -AMLO-114 PO; -AMR2 PO; -ASPI81TA28 PO; -ATOR-22 PO; +CEFAZOLIN 3000MG 72.5 ML IV SCH; -CETI10TA84 PO; +LR 500ML BOLUS, THEN 15ML/HR IV SCH; +LR 60ML/HR IV SCH; -LSN40 PO; -METF500T5 PO; -MULT-506 PO; +ROPIVACAINE 0.5% HCL/PF 150 MG, BUPIVACAINE 0.5% MPF 30 ML, EPINEPHrine 0.15 MG, Ketoro... INFIL SCH; +TRANEXAMIC ACID 1,000 MG **IV Pre-op IV SCH
--- NOTE | 2019-11-09 06:23 | History & Physical Bridge Note ---
Date of Service November 09, 2019 History & Physical Bridge Note I have examined the patient, reviewed the History & Physical and in the interval since the performance of the History & Physical I have noted the following changes of clinical significance: consent obtained,site marked.no changes noted
[2019-11-09] MEDS ORDERED: BUPIVACAINE/EPINEPHRINE 0.25% 1:200,000 30 ML VIAL ONE (06:34)
[2019-11-09] MEDS ORDERED: BUPIVACAINE 0.5 % 5 MG/1 ML PF 10ML VIAL ONE (06:34)
[2019-11-09] MEDS ORDERED: MIDAZOLAM HCL 1 MG/ML 2ML VIAL ONE (07:54)
[2019-11-09] MEDS ORDERED: fentaNYL citrate 100 MCG/2 ML VIAL IV PRN (08:13)
[2019-11-09] MEDS ORDERED: HYDROmorphone INJ 2 MG/ML SYR/VIAL IV PRN (08:13)
[2019-11-09] MEDS ORDERED: ONDANSETRON INJ 2 MG/ML 2 ML VIAL IV PRN ×2 (08:13→12:33)
[2019-11-09] MEDS ORDERED: ePHEDrine sulfate 50 MG/ML AMP IV PRN (08:13)
[2019-11-09] MEDS ORDERED: ATROPINE SULFATE 0.1 MG/ML 10ML SYR IV PRN (08:13)
[2019-11-09] MEDS ORDERED: ORTHO JOINT ANESTHETIC ONE (08:37)
[2019-11-09] MEDS ORDERED: DexMEDEtomidine HCL IV 100 MCG/ML VIAL ONE (08:41)
[2019-11-09] MEDS ORDERED: PHENYLEPHRINE HCL 10 MG/ML VIAL ONE (10:08)
[2019-11-09] MEDS ORDERED: GLYCOPYRROLATE 0.2 MG/ML VIAL ONE (10:08)
--- NOTE | 2019-11-09 10:37 | Post Operative Brief Note ---
Immediate Post Op Note v1 Date of Surgery November 09, 2019 Pre & Post Diagnosis Operation Date: 11/09/19 08:50 Pre-Op Diagnosis: Left Knee End-Stage Degenerative Joint Disease Post-Op Diagnosis: Left Knee End-Stage Degenerative Joint Disease I identified the patient and participated in the time-out.: Yes Procedure Operation Date: 11/09/19 08:50 Actual Procedures p Left Total Knee Arthroplasty(Left) - Albino Del Rosario MD Surgeon Albino Del Rosario MD Industrial Illuminating Engineer isidro/anahy Estimated Blood Loss 50 Findings Consistent with Post-Op Diagnosis
--- NOTE | 2019-11-09 10:48 | Operative Report ---
Post Operative Report Pre & Post Diagnosis Operation Date: 11/09/19 08:50 Pre-Op Diagnosis: Left Knee End-Stage Degenerative Joint Disease Post-Op Diagnosis: Left Knee End-Stage Degenerative Joint Disease I identified the patient and participated in the time-out.: Yes Procedure Operation Date: 11/09/19 08:50 Actual Procedures p Left Total Knee Arthroplasty(Left) - Albino Del Rosario MD Surgeon Albino Del Rosario MD Leaded Glass Installer isidro/anahy Estimated Blood Loss 50 Findings Consistent with Post-Op Diagnosis Specimens Bone from left knee Complications none Disposition Accompanied Patient To Recovery: Yes Disposition: Recovery Room Description of Procedure Supine, standard prep and drape, tourniquet, time out Left Total Knee Arthroplasty(Left) Please see Dr Del Rosario's procedure notes for specific details I was present throughout the case, assisted for wound closure and transferred the patient to PACU in stable condition I attest to the content of the Intraoperative Record and any orders documented therein. Any exceptions are noted below.
--- NOTE | 2019-11-09 10:53 | XRay Report ---
XR knee LT 1 or 2V routine CLINICAL HISTORY: post op in pacu ap/lateral views only DEGENERATIVE ARTHRITIS COMPARISON: 10/03/2019 DISCUSSION: There are postsurgical changes of a total left knee arthroplasty and patellar resurfacing . The femoral and tibial components appear well seated. There are overlying skin george. There is ai r within the soft tissues consistent with recent surgery. IMPRESSION: Postsurgical changes of a total left knee arthroplasty. ACT 112: Negative or not required by law. Electronically signed by: Lc Denton M.D. 11/09/2019 10:52 AM
[2019-11-09] MEDS ORDERED: PHENYLEPHRINE 100MCG/ML 5ML SYR ONE (11:00)
--- NOTE | 2019-11-09 11:06 | Operative Report ---
Post Operative Report Pre & Post Diagnosis Operation Date: 11/09/19 08:50 Pre-Op Diagnosis: Left Knee End-Stage Degenerative Joint Disease Post-Op Diagnosis: Left Knee End-Stage Degenerative Joint Disease I identified the patient and participated in the time-out.: Yes Procedure Operation Date: 11/09/19 08:50 Actual Procedures p Left Total Knee Arthroplasty(Left) - Albino Del Rosario MD Surgeon HOLLEY Del Rosario MD Wrapper Stripper isidro/anahy Estimated Blood Loss 50 Findings Consistent with Post-Op Diagnosis Specimens see operative report Drains none Complications none Disposition Accompanied Patient To Recovery: Yes Disposition: Recovery Room Indications This 54-year-old white male presented to the office with complaints of intractable left knee pain. He had tried conservative care measures including activity modification, oral anti-inflammatories, knee injection's, and knee arthroscopy, without lasting relief. He elected to proceed with surgical intervention after being educated about potential risks and outcomes. Preoperative imaging was obtained. Description of Procedure Patient was administered a spinal anesthetic and then taken to the operating room where he was given sedation. He was prepped and draped in the usual sterile fashion. Please see Dr. Del Rosario's operative report for specifics of the procedure. I was present for the entire case from initial patient positioning through final wound closure. Assistance was provided with tissue retraction, hemostasis, trial implant placement, final implant placement, and final wound closure. Patient was taken to the recovery room in satisfactory condition. I attest to the content of the Intraoperative Record and any orders documented therein. Any exceptions are noted below.
--- NOTE | 2019-11-09 11:06 | Operative Report ---
DATE OF OPERATION: 11/09/2019 SURGEON: Albino Del Rosario MD TILE PRESSER: Chirag Park MD. SECOND SALES SPECIALIST: René Lagos PA-C. PREOPERATIVE DIAGNOSES: Osteoarthritis, left knee with arthrofibrosis. POSTOPERATIVE DIAGNOSES: Osteoarthritis, left knee with arthrofibrosis. OPERATION PERFORMED: Cemented left total knee replacement. SUMMARY OF IMPLANTS: Size 4 left femur posterior cruciate substituting, size 5 mobile bearing tray tibia, size 4 x 12.5 insert posterior cruciate substituting matching the femur, size 41 patella, 2 bags of Palacos G cement. ESTIMATED BLOOD LOSS: 50 mL. CRYSTALLOID: Per anesthesia. PATHOLOGY: Pending on bone. DEEP VENOUS THROMBOSIS PROPHYLAXIS: Per protocol. PERIOPERATIVE SITUATION: Medically cleared male with diabetes who has severe pain, swelling, stiffness of his left knee. X-rays reveal degenerative disease throughout all 3 compartments, but actually the right knee is more advanced by x-ray than the left; however, his left knee is more symptomatic. He had a knee arthroscopy in the past, which revealed articular disease of all 3 compartments. DESCRIPTION OF PROCEDURE: The patient was appropriately identified, site verified, consent verified. Antibiotics confirmed as being given. The left lower extremity was prepped and draped in usual routine fashion. Tourniquet inflated to 300 mmHg after exsanguination of limb with a rubber Esmarch bandage for a total of 59 minutes. Midline exposure was utilized. Parapatellar arthrotomy was performed. Extensive release of the infrapatellar fat pad and extensor mechanism was required to cara the patella. There was a large amount of scarring there. There was a large chondral fragment that was floating in the knee that was approximately 2 cm x 1 cm x 3 mm thick. There was grade 4 disease on the entire medial femoral condyle and trochlea, grade 3 disease on the patella. There was exuberant hypertrophic synovitis throughout the knee. Once the kneecap was everted, synovectomy was completed. Good exposure was obtained. The cruciates were resected. The tibia was subluxated, the menisci were resected. Distal femur was resected 14 mm, proximal tibia 4 mm, the extension gap was slightly tight medially. After a slight capsular release, it was excellent. The femur was sized between a 5 and a 4, was measured 5, cut 4. There was no notching. The flexion gap was good. The box cut was then made and the size 4 trial fit well. The tibia was then broached and reamed for the size 5 and with a 12.5 spacer, there was no mid range instability and extension was excellent. Flexion was easy to 120 degrees. The patella was then trimmed leaving about 15-16 mm, size 41 trial was placed and the seating holes made and the trial tracked well. The Orthomix was then injected all around the knee with the exception of the steroid component based on his diabetes. All trial implants were then removed. The wound was irrigated with Betadine Pulsavac and then the permanent cemented in position, tibia, femur and patella in that order. After 12 minutes, the tourniquet was deflated. Minor bleeding points were controlled with electrocautery. Again, EBL was minimal, 50 mL. At 14 minutes, the trial tibia was removed. The knee was irrigated one final time with Betadine and Pulsavac. There was no cement removal required. The permanent liner was seated. The knee was reduced and then closed at 35-40 degrees of flexion with #2 Vicryl, 2-0 Vicryl and stainless steel clips. A Vijay Zamudio cotton dressing was applied postop with Blair bandages. The patient was then transferred to recovery room in satisfactory condition having tolerated the procedure well. Pathology pending on bone. DVT prophylaxis per protocol. I attest to the content of the Intraoperative Record and any orders documented therein. Any exception s are noted below.
[2019-11-09] MEDS ORDERED: PHENYLEPHRINE 100MCG/ML 5ML SYR IV PRN (11:16)
[2019-11-09] MEDS ORDERED: VANCOMYCIN HCL 2,500 MG in SODIUM CHLORIDE 0.9% 500 ML IV SCH (11:30)
--- NOTE | 2019-11-09 11:39 | Anesthesiology Progress Note ---
Date of Service November 09, 2019 Anesthesia Post Procedure Vital Signs Vital Signs: Temp Pulse Pulse Resp BP BP Pulse Ox 11/09/19 11:35 72 16 98/58 L 93 11/09/19 11:25 71 16 94/64 L 95 11/09/19 11:15 62 14 70/48 L 96 11/09/19 11:05 72 26 H 92/55 L 93 11/09/19 10:55 70 17 74/59 L 90 11/09/19 10:46 37.1 C 70 16 125/57 L 97 11/09/19 06:50 37.0 C 66 22 150/91 H 99 Pain Intensity Left Knee: Pain Intensity: 5 Transfer of Care Handoff Completed per policy Notes Mental Status: alert / awake / arousable and participated in evaluation Patient Amnestic to Procedure: Yes Nausea / Vomiting: adequately controlled Pain: adequately controlled Airway Patency, RR, SpO2: stable & adequate BP & HR: stable & adequate Hydration State: stable & adequate Anesthetic Complications: no major complications apparent and Pt Satisfied with anesthetic care
--- NOTE | 2019-11-09 11:44 | Progress Note ---
DATE: 11/09/2019 SUBJECTIVE: Status post left total knee replacement. The patient is sitting up in bed in the recovery room. He denies any chest pain, shortness of breath, fever, chills, nausea, vomiting or headache. OBJECTIVE: Vital signs are stable. He is afebrile. Neurovascular check is limited by spinal. Wound dressing clean, dry and intact. Postop x-rays, AP and lateral knee reveals excellent positioning of implants. ASSESSMENT: Doing well status post left total knee replacement. Continue with care pathway. Discharge tomorrow.
--- NOTE | 2019-11-09 11:46 | Discharge Summary ---
CHIEF COMPLAINT: Left knee pain. HISTORY OF PRESENT ILLNESS: Admitted for elective left total knee replacement. The patient has had no major issues to date. He is sitting up and having much pain. His block is still in place from the spinal. His postop x-rays look excellent. PAST MEDICAL HISTORY: Remarkable for hypertension, hypercholesterolemia, diabetes, obesity, osteoarthritis. PAST SURGICAL HISTORY: Remarkable for bilateral hip replacements, right elbow arthroscopy, right knee arthroscopy, left knee arthroscopy. SOCIAL HISTORY: Reveals he is employed. No tobacco or alcohol use. Has a significant other. ALLERGIES: None. CURRENT MEDICATIONS: Include allopurinol, amlodipine, amoxicillin, aspirin, atorvastatin, Zyrtec, glimepiride, losartan, metformin. He will be placed on Coumadin for DVT/PE prophylaxis. Discharge dose depending on INR tomorrow. REVIEW OF SYSTEMS: Noncontributory. Postop x-rays look excellent. Wound dressing clean, dry and intact. ASSESSMENT: Doing well status post left total knee replacement. We will have bilingual social worker, case management, etc., system for discharge planning, see the patient and prepare for discharge tomorrow.
[2019-11-09] MEDS ORDERED: NALOXONE HCL 0.4 MG/1 ML VIAL/CARP IV PRN (12:33)
[2019-11-09] MEDS ORDERED: ALUMINUM/MAGNESIUM SUSP 30 ML UDC PO PRN (12:33)
[2019-11-09] MEDS ORDERED: DiphenhydrAMINE HCL 50 MG/ML VIAL IV PRN (12:33)
[2019-11-09] MEDS ORDERED: bisacodyL 10 MG SUPP PR PRN (12:33)
[2019-11-09] MEDS ORDERED: METOCLOPRAMIDE HCL INJ 5 MG/ML 2 ML VIAL IV PRN (12:33)
[2019-11-09] MEDS ORDERED: HYDROmorphone INJ 0.5 MG/0.5 ML SYR IV PRN (12:33)
[2019-11-09] MEDS ORDERED: MAGNESIUM HYDROXIDE SUSP 30 ML UDC PO PRN (12:33)
[2019-11-09] MEDS ORDERED: TAMSULOSIN HCL 0.4 MG CAP PO PRN (12:33)
[2019-11-09] MEDS ORDERED: SODIUM CHLORIDE 0.9% 1000ML 1,000 ML IV SCH (13:00)
[2019-11-09] MEDS: INSULIN ASPART 100 UNITS/ML 3 ML PEN SC SCH ×3 (13:28→21:33)
[2019-11-09 13:30] LABS: Creatinine Clr Calc Pharmacy 101.6 ml/min; Est GFR (African American) 67.2
[2019-11-09] MEDS: ORTHO WARFARIN NOMOGRAM SCH (13:49)
[2019-11-09] MEDS: ACETAMINOPHEN 500 MG TAB PO SCH ×2 (13:49→21:23)
[2019-11-09] MEDS ORDERED: WARFARIN SOD 5 MG TAB PO ONE (16:00)
[2019-11-09] MEDS: KETOROLAC 30 MG/ML VIAL IV SCH ×2 (16:42→21:26)
[2019-11-09] MEDS ORDERED: TRANEXAMIC ACID / 0.7% NACL 1,000 MG/100 ML BAG IV SCH (16:54)
[2019-11-09] MEDS: FERROUS GLUCONATE 324 MG TAB PO SCH (17:12)
[2019-11-09] MEDS: ASCORBIC ACID 500 MG TAB PO SCH (17:13)
[2019-11-09] MEDS: CEFAZOLIN 2000MG 2,000 MG/15 ML SYR IV SCH (17:43)
[2019-11-09] MEDS: OXYCODONE HCL IR 5 MG TAB (IMMEDIATE RELEASE) PO PRN (20:03)
[2019-11-09] MEDS ORDERED: ATORVASTATIN 20 MG TAB PO SCH (21:00)
[2019-11-09] MEDS ORDERED: SENNA 8.6 MG TAB PO SCH (21:00)
[2019-11-09] MEDS: DOCUSATE SODIUM 100 MG CAP PO SCH (21:25)
[2019-11-10] MEDS: CEFAZOLIN 2000MG 2,000 MG/15 ML SYR IV SCH (00:31)
[2019-11-10] MEDS: KETOROLAC 30 MG/ML VIAL IV SCH ×2 (03:45→09:16)
[2019-11-10 05:27] LABS: Hematocrit (blood only) 35.2 % (42-52); Hemoglobin 11.5 g/dL (14.0-18.0); Mean Corpuscular Hemoglobin 28.9 pg (25-34); Mean Corpuscular Hgb Conc 32.7 g/dL (32-36); Mean Corpuscular Volume 88.4 fL (80-100); Mean Platelet Volume 10.1 fL (7.4-10.4); Platelet Count 185 K/uL (130-400); RDW Coefficient of Variation 13.4 % (11.5-14.5); RDW Standard Deviation 42.9 fL (36.4-46.3); Red Blood Count 3.98 M/uL (4.7-6.1); White Blood Count 7.13 K/uL (4.8-10.8)
[2019-11-10 05:37] LABS: Prothrombin Time 10.3 Seconds (9.0-12.0)
[2019-11-10] MEDS: ACETAMINOPHEN 500 MG TAB PO SCH (05:43)
[2019-11-10 05:57] LABS: BUN Creatinine Ratio 12.3 (10-20); Calcium 7.9 mg/dl (8.5-10.1); Creatinine Clr Calc Pharmacy 79.6 ml/min; Est GFR (African American) 50.1; Est GFR (Non-African American) 43.2
--- NOTE | 2019-11-10 06:47 | Progress Note ---
DATE: 11/09/2019 SUBJECTIVE: Postop day #1 status post left total knee replacement. The patient is doing well, is ambulatory to the bathroom and is voiding, eating, drinking. Denies any chest pain, shortness of breath, fever, chills, nausea, vomiting or headache. Vital signs are stable. He is afebrile. Neurovascular check, femoral sciatic nerve is normal. Has some difficulty doing a straight leg raise. I went over his exercise with him particularly stressing, quad setting, knee extension and ankle dorsiflexion simultaneously to try to inhibit patellofemoral arthrofibrosis and to prevent flexion contracture. He states he understands. Also showed him the heel prop extension stretch. He states he understands. ASSESSMENT: INR is subtherapeutic. We will give Coumadin per nomogram today prior to discharge. Discharge on 4 mg Coumadin. Use knee immobilizer for ambulation for the next 48 hours only. Does not need it gas stove servicer helper once his quad control comes back and does not need it gas stove servicer helper when he is sitting. He is to do his exercises, get a knee range of motion from 0-90 as quickly as possible. Start formal physical therapy in 2 weeks. MARVIN
[2019-11-10] MEDS: ORTHO WARFARIN NOMOGRAM SCH (08:06)
--- NOTE | 2019-11-10 08:24 | Anesthesiology Progress Note ---
Date of Service November 10, 2019 Anesthesia Post Procedure Vital Signs Vital Signs: Temp Pulse Pulse Resp BP Pulse Ox 11/10/19 03:25 36.5 C 54 L 20 117/60 92 11/10/19 00:00 36.8 C 57 L 18 129/72 92 11/09/19 18:45 36.6 C 73 17 137/75 94 11/09/19 15:21 36.7 C 67 17 145/64 H 95 11/09/19 14:30 36.7 C 70 18 136/69 94 11/09/19 13:32 77 18 126/76 100 11/09/19 12:50 36.5 C 67 16 120/74 99 11/09/19 11:55 36.9 C 64 16 101/58 L 99 11/09/19 11:45 63 12 103/60 97 11/09/19 11:35 72 16 98/58 L 93 11/09/19 11:25 71 16 94/64 L 95 11/09/19 11:15 62 14 70/48 L 96 11/09/19 11:05 72 26 H 92/55 L 93 11/09/19 10:55 70 17 74/59 L 90 11/09/19 10:46 37.1 C 70 16 125/57 L 97 Pain Intensity Left Knee: Pain Intensity: 0 Notes Mental Status: alert / awake / arousable Patient Amnestic to Procedure: Yes Nausea / Vomiting: adequately controlled Pain: adequately controlled Airway Patency, RR, SpO2: stable & adequate BP & HR: stable & adequate Hydration State: stable & adequate Neuraxial Anesthesia: was administered and sensory block resolved Anesthetic Complications: no major complications apparent
[2019-11-10] MEDS ORDERED: WARFARIN SOD 5 MG TAB PO ONE (08:30)
[2019-11-10] MEDS ORDERED: LOSARTAN POTASSIUM 50 MG TAB PO SCH (09:00)
[2019-11-10] MEDS ORDERED: CETIRIZINE HCL 10 MG TABLET PO SCH (09:00)
[2019-11-10] MEDS ORDERED: GLIMEPIRIDE 2 MG TAB PO SCH (09:00)
[2019-11-10] MEDS ORDERED: AMLODIPINE BESYLATE 5 MG TAB PO SCH (09:00)
[2019-11-10] MEDS ORDERED: ASPIRIN 81 MG ECTAB PO SCH (09:00)
[2019-11-10] MEDS ORDERED: MULTIVITAMIN TAB PO SCH (09:00)
[2019-11-10] MEDS: FERROUS GLUCONATE 324 MG TAB PO SCH (09:16)
[2019-11-10] MEDS: DOCUSATE SODIUM 100 MG CAP PO SCH (09:16)
[2019-11-10] MEDS: ASCORBIC ACID 500 MG TAB PO SCH (09:17)
[2019-11-10] MEDS: INSULIN ASPART 100 UNITS/ML 3 ML PEN SC SCH (09:19)
[2019-11-10] MEDS: OXYCODONE HCL IR 5 MG TAB (IMMEDIATE RELEASE) PO PRN (09:26)
--- NOTE | 2019-11-10 09:37 | Orthopedic Progress Note ---
Date of Service November 10, 2019 Assessment & Plan (1) Status post total knee replacement, left: Dressings were changed this morning by me. New compression dressing with cast padding was applied. Postsurgical wound looks very good. No active bleeding. Minimal drainage on his dressings. Continue Coumadin per nomogram. PT/OT today. Continue ambulating multiple times per day, and using his walker for support. Weight-bear as tolerated Anticipate discharge to home with home health services after therapy this morning. Follow-up in the office in 2 weeks as scheduled for staple removal. Resume his usual diabetic regimen. Subjective Patient is seen in his room this morning. He denies any chest pain, shortness of breath, nausea, vomiting, or abdominal pain. He states his knee pain was fairly severe overnight but it is tolerable now. He has been using oxycodone for pain relief. He states he did not sleep well due to interruptions. He does feel ready to be discharged to home. Review of Systems Review of Systems: Unchanged from yesterday Physical Exam Physical Exam: General: Well-developed, well-nourished, large white male, in no acute distress. Laying in his bed. He has finished breakfast. Skin: Warm and dry with good turgor. No rashes or lesions. Expected postoperative edema and ecchymosis at the left knee. No erythema. The patient is not diaphoretic. No abrasions. Humble are intact. No active bleeding. Musculoskeletal: Patient has intact motor function to his ankle and knee. He is able to perform straight leg raise this morning. He has nearly full terminal extension, lacking just a few degrees. Neurologic: Gross sensation is intact across all aspects of the left leg by soft touch. Peripheral pulses are 2+. Results & Data Vital Signs (Past 12 Hours) Vital Signs Temp Pulse Resp BP Pulse Ox 11/10/19 08:25 36.7 C 64 18 117/60 96 11/10/19 03:25 36.5 C 54 L 20 117/60 92 11/10/19 00:00 36.8 C 57 L 18 129/72 92 Laboratory Results H&H this morning is 11.5 and 35.2. WBC is 7.13. INR today is 1.0. BUN stable at 22, creatinine stable at 1.76. Glucose 146
== END 2019-11-10 12:51 | disposition home health service (06) | DRG 470 ==
LOC: ASU 06:15 → 3E 11:00

== ENCOUNTER 2021-05-20 07:12 | Inpatient (IN) ==
[2021-05-20 08:23] LABS: Hematocrit (blood only) 42.6 % (42-52); Hemoglobin 14.1 g/dL (14.0-18.0); Immature Granulocytes # (auto) 0.01 K/uL (0.00-0.02); Immature Granulocytes % (auto) 0.3 %; Lymphocytes # (auto) 0.61 K/uL (1.2-3.4); Mean Corpuscular Hemoglobin 27.6 pg (25-34); Mean Corpuscular Hgb Conc 33.1 g/dL (32-36); Mean Corpuscular Volume 83.5 fL (80-100); Mean Platelet Volume 10.2 fL (7.4-10.4); Monocytes % (auto) 10.3 %; Neutrophils # (auto) 1.99 K/uL (1.4-6.5); Neutrophils % (auto) 68.4 %; Platelet Count 148 K/uL (130-400); RDW Coefficient of Variation 13.6 % (11.5-14.5); RDW Standard Deviation 41.7 fL (36.4-46.3); White Blood Count 2.91 K/uL (4.8-10.8)
[2021-05-20] MEDS ORDERED: SODIUM CHLORIDE 0.9% 500 ML IV STA (08:34)
[2021-05-20] MEDS ORDERED: ACETAMINOPHEN 500 MG TAB PO STA (08:34)
--- NOTE | 2021-05-20 08:37 | Electrocardiogram Report ---
Test Reason : Blood Pressure : / mmHG Vent. Rate : 085 BPM Atrial Rate : 085 BPM P-R Int : 142 ms QRS Dur : 088 ms QT Int : 358 ms P-R-T Axes : 025 -63 037 degrees QTc Int : 426 ms Normal sinus rhythm Left anterior fascicular block Abnormal ECG When compared with ECG of 08-NOV-2020 16:11, No significant change was found Confirmed by David Simons ([id number]) on 05/20/2021 8:37:14 AM Referred By: Confirmed By:David Simons
[2021-05-20 08:39] LABS: Albumin Level 3.2 gm/dl (3.4-5.0); BUN Creatinine Ratio 12.5 (10-20); Blood Urea Nitrogen 22 mg/dl (7-18); Carbon Dioxide 23 mmol/L (21-32); Chloride 106 mmol/L (98-107); Est GFR (Non-African American) 42.3 ml/min; Glucose 235 mg/dl (70-99); Sodium 136 mmol/L (136-145)
[2021-05-20 08:42] LABS: Alanine Aminotransferase 71 U/L (12-78); Albumin Globulin Ratio 0.8 (0.9-2); Alkaline Phosphatase 85 U/L (45-117); Aspartate Aminotransferase 72 U/L (15-37); Bilirubin,Total 0.4 mg/dl (0.2-1); Total Protein 7.2 gm/dl (6.4-8.2)
--- NOTE | 2021-05-20 09:08 | XRay Report ---
XR chest 1V portable HISTORY: 56 years-old Male Fever, cough, SOB acute fever with cough and shortness of breath COMPARISON: Chest radiograph 10/11/2019 TECHNIQUE: Portable AP view of the chest FINDINGS: Cardiac silhouette is enlarged. Pulmonary vascular congestion with ill-defined opacities of the mid a nd lower lung zones. No pneumothorax or large pleural effusion. Degenerative changes of the shoulders and spine. IMPRESSION: 1. Cardiomegaly with pulmonary vascular congestion. 2. Ill-defined opacities of the mid and lower lung zones are suspicious for a superimposed infectious or inflammatory pneumonitis. ACT 112: Negative or not required by law. The above report was generated using voice recognition software. It may contain grammatical, syntax o r spelling errors. Electronically signed by: Varinder Monaco M.D. 05/20/2021 9:06 AM
--- NOTE | 2021-05-20 09:56 | Emergency Department Note ---
Impression & Plan Pneumonia due to COVID-19 virus, Hypoxemia, Leukopenia ED Provider Note CHIEF COMPLAINT: Fever, cough, shortness of breath HISTORY OF PRESENTING ILLNESS: This is a 56-year-old male with past medical history significant for type 2 diabetes, hypertension, CKD stage III, who presents to the emergency department by private vehicle with complaint of fever, cough, shortness of breath and generally feeling unwell for the past 5 days. Patient states he initially started feeling ill on Thursday, having some fevers and chills off and on and some body aches. He states the next 2 days he started to feel better and had more energy, but over the weekend he began to feel very fatigued and started to develop a cough and some shortness of breath as well. He has had some chest pain off and on, but denies any chest pain currently. He notes that he has had some headaches and nausea off and on as well. He denies any neck pain or stiffness. He is not sure how high his fevers have been, because he has not checked his temperature. He currently complains of generalized back and body aches and rates this pain a 4/10. He denies any known sick contacts with similar symptoms. He does note that he received the [employer] COVID-19 vaccine in January of this year. He denies any known tick bites recently and denies any high risk for tick exposure. REVIEW OF SYSTEMS: A complete 10 point review of systems was reviewed with the patient with pertinent positives and negatives as per history of present illness. All else were negative. PAST MEDICAL HISTORY: Hypertension, hyperlipidemia, uncontrolled type 2 diabetes mellitus, stage III chronic kidney disease, obesity SOCIAL HISTORY: Lives at home, he denies tobacco use ALLERGIES: No known allergies PHYSICAL EXAM: CONSTITUTIONAL: Pleasant and cooperative. Nontoxic-appearing and in no acute distress. Mildly dehydrated, but otherwise well appearing and well nourished. HEENT: Normocephalic, atraumatic. PERRL, EOMI. TMs normal bilaterally. Pharynx is not erythematous or injected, no tonsillar edema or exudate. Tacky mucous membranes. NECK: Supple, full active range of motion without discomfort. No nuchal rigidity or meningismus. No cervical adenopathy. RESPIRATORY: Diminished in bases bilaterally, otherwise clear with no wheezing, crackles, rhonchi or stridor. No tachypnea or accessory muscle use. Equal expansion bilaterally. CARDIOVASCULAR: Regular rate and rhythm with no murmurs, rubs or gallops. Normal peripheral perfusion. No edema. GASTROINTESTINAL: Soft, nontender, nondistended. No palpable masses or HSM. B owel sounds present in all quadrants. No CVA tenderness bilaterally. MUSCULOSKELETAL: Full range of motion of all joints without discomfort. INTEGUMENTARY: No rash or other significant dermatologic conditions noted. NEUROLOGIC: Alert and oriented X 4 with normal affect. Normal strength and sensation in all 4 extremities. Normal speech. Normal gait observed. ED COURSE AND MEDICAL DECISION MAKING: CC: Patient presenting with complaint of fever, cough, shortness of breath DIFFERENTIAL DIAGNOSIS: Includes, but not limited to COVID-19, viral URI, bronchitis, pneumonia, acute coronary syndrome, pulmonary embolism, pneumothorax, pericarditis, myocarditis, UTI, otitis externa, otitis media, pharyngitis, bacteremia/sepsis, tickborne illness, among others. INTERPRETATION OF LABS: Leukopenia, no anemia, normal platelets, no significant electrolyte abnormalities, mildly elevated BUN with an elevated creatinine (consistent with baseline), elevated AST, otherwise normal liver enzymes. Tro ponin undetectable. Lactic acid within normal limits. Procalcitonin is not significantly elevated. UA negative. Lyme antibodies negative, Anaplasma smear negative. SARS-CoV-2 by PCR is POSITIVE. EKG: Shows normal sinus rhythm with a rate of 85 bpm, left axis deviation, no ST elevation or depression, no ectopy, no significant change when compared to previous EKG from 11/08/2020 by my interpretation. MEDICATION RECONCILIATION: I attest that I have personally reviewed the patient's current medication list. INITIAL VITAL SIGNS REVIEW: I reviewed the patient's initial vital signs and interpret them as follows: T: Febrile; BP: Normotensive; HR: Within normal limits; RR: Within normal limits; Pulse Ox: Within normal limits on room air. MDM SUMMARY: Patient was evaluated at bedside, history and physical exam performed. The patient was placed under isolation precautions for possible COVID-19. Patient is alert and oriented, in no acute distress, resting calmly in stretcher. He is noted to be febrile, but is nontoxic-appearing and hemodynamically stable. Lungs are diminished in the bases, no abnormal lung sounds were heard and patient does not have any respiratory distress. Cardiac monitoring: An order was placed for continuous cardiac monitoring. The monitor shows a rate of 85 bpm with normal sinus rhythm. EKG was reviewed at bedside and was noted to be normal sinus with no ischemic changes. Orders were placed for labs including troponin, lactic acid, procalcitonin, blood cultures x2, Lyme antibodies and Anaplasma testing, urinalysis, COVID-19, 500 mL IV fluid bolus for gentle hydration, p.o. Tylenol for fever, chest x-ray to evaluate for cough and fever. Patient discussed with Dr. Horan, who agrees with my assessment, plan, and disposition. Labs and imaging reviewed, labs were notable for leukopenia, no anemia or thrombocytopenia. Renal function appears consistent with baseline. Troponin was negative. Lactic acid and procalcitonin were not elevated. Tickborne illness testing negative. Patient is positive for COVID-19. Chest x-ray demonstrated cardiomegaly with pulmonary vascular congestion and ill-defined opacities of the mid and lower lung zones consistent with probable pneumonia, which does fit with the patient's COVID-19 infection. The patient did develop some hypoxemia on room air and reportedly dropped his sats to 88%, he was placed on 2 L nasal cannula. Patient reassessed multiple times throughout ED stay, he has remained hemodynami ольга stable and has defervesced appropriately after the Tylenol, but given his oxygen requirement, body habitus, and other comorbidities, I did feel that the patient should be admitted. I spoke on the phone with the hospitalist team, they agreed to evaluate the patient for admission. The patient was updated on all results and plan for admission, all questions were answered to the best my ability and he was agreeable to this plan. The patient was stable at the time of admission. The chart was completed utilizing [employer] voice recognition software. Grammatical errors, random word insertions, pronoun errors, and incomplete sentences are an occasional consequence of this system due to software limitations, ambient noise, and hardware issues. Any formal questions or concerns about the content, text, or information contained within the body of this dictation should be directly addressed to the nurse practitioner for clarification. Past Med/Surg History Medical History Arthritis Diabetes mellitus, type 2 NIDDM Hx of gout Hyperlipidemia Hypertension Morbid obesity Osteoarthritis Stage 3b chronic kidney disease Surgical History H/O elbow surgery Right scope 06/16/17 - Glidescope #4, ETT #8.0, HiLo Oral, Grade 1 View, Cords Clear, Atraumatic x 1 attempt History of arthroscopy Right knee scope: 07/28/17: LMA#5 at [facility] [place] History of arthroscopy of left knee Left knee scope: 03/22/19: Grade view 1, Glidescope #4, ETT 8.0 at [facility] (weight at time 165kg) History of left knee replacement Left TKA: 11/09/19: SAB x3 attempts + PNB at [facility] History of total hip arthroplasty R/L Family History Father Diabetes Obesity Mother Hypertension Other No family history of adverse response to anesthesia Social History (Updated 05/20/21 @ 14:19 by Keya Cui PA-C) Smoking Status: Never smoker Tobacco Type: Smokeless Tobacco (Dip or Chew) Second Hand Exposure: Yes (bars); Do You Dip or Chew Tobacco: Yes (1 can Q3Days); Tobacco Cessation Education Requested by Patient: No Hx Alcohol Use: Yes Alcohol type: beer Hx Substance Use: No Preferred Language: Bermudian Communication Ability: Effective Visual Impairment: No Limitations Hearing Ability: Normal 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 Required: No Beliefs That Will Affect Care: None marital status: Current Living Situation: Spouse current occupational status: employed Other Information That Helps Us Care for You: No Feels Safe at Home: Yes Assistive Devices: None Allergies Allergies Allergy/AdvReac Type Severity Reaction Status Date / Time No Known Allergies Allergy Verified 11/21/20 05:43 Home Meds Home Medications Medication Instructions Recorded Confirmed amlodipine 10 mg tablet 10 mg PO QAM 03/08/19 05/20/21 aspirin 81 mg tablet,delayed 81 mg PO QAM 03/08/19 05/20/21 release (Aspir-) atorvastatin 20 mg tablet (Lipitor) 20 mg PO HS 03/08/19 05/20/21 cetirizine 10 mg tablet (Zyrtec) 10 mg PO QAM 03/08/19 05/20/21 glimepiride 2 mg tablet 2 mg PO QAM 03/08/19 05/20/21 losartan 100 mg tablet 100 mg PO QAM 03/08/19 05/20/21 metformin 750 mg tablet,extended 750 mg PO PM 03/08/19 05/20/21 release 24 hr allopurinol 100 mg tablet 100 mg PO QAM 11/06/20 05/20/21 Previous Rx's Medication Instructions Recorded liraglutide 0.6 mg/0.1 mL (18 mg/3 1.2 mg SUBCUT QAM #18 ml 11/16/20 mL) subcutaneous pen injector apixaban 2.5 mg tablet (Eliquis) 2.5 mg PO BID #60 tab 11/21/20 oxycodone-acetaminophen 5 mg-325 2 tab PO Q4H PRN #24 tab 11/21/20 mg tablet (Percocet) Results & Data (ED) Vital Signs Vital Signs - 24 hr 05/20/21 07:15 05/20/21 08:05 05/20/21 08:12 Temperature 37.6 C H 38.6 C H Temperature Source Temporal Artery Scan Oral Pulse Rate 89 84 Pulse Rate from SpO2 Sensor 83 Respiratory Rate 18 26 H Blood Pressure 106/70 127/75 Blood Pressure Mean 82 92 Pulse Oximetry 93 91 Oxygen Delivery Method Room Air Oxygen Flow Rate Sepsis Recent Fever Within 48 Hours Yes Sepsis New/Unexplained Change in Mental Status N/A Sepsis Action Taken by Nursing No Action Required Oxygen Flow Rate - Titration Pulse Oximetry Post Tiitration 05/20/21 08:30 05/20/21 09:01 05/20/21 09:25 Temperature Temperature Source Pulse Rate 85 80 Pulse Rate from SpO2 Sensor 85 80 Respiratory Rate 26 H 28 H Blood Pressure 111/72 114/66 Blood Pressure Mean 85 82 Pulse Oximetry 91 91 88 L Oxygen Delivery Method Room Air Oxygen Flow Rate 2 Sepsis Recent Fever Within 48 Hours Sepsis New/Unexplained Change in Mental Status Sepsis Action Taken by Nursing Oxygen Flow Rate - Titration 2 Pulse Oximetry Post Tiitration 94 05/20/21 09:30 05/20/21 10:01 05/20/21 10:31 Temperature Temperature Source Pulse Rate 77 79 80 Pulse Rate from SpO2 Sensor 76 80 79 Respiratory Rate 28 H 22 Blood Pressure 118/55 L 108/76 101/58 L Blood Pressure Mean 76 86 72 Pulse Oximetry 96 93 94 Oxygen Delivery Method Oxygen Flow Rate 2 2 Sepsis Recent Fever Within 48 Hours Sepsis New/Unexplained Change in Mental Status Sepsis Action Taken by Nursing Oxygen Flow Rate - Titration Pulse Oximetry Post Tiitration Laboratory Data Result diagrams: 05/20/21 08:00 05/20/21 08:00 Lab Results 05/20/21 05/20/21 05/20/21 Range/Units 08:00 08:00 08:00 WBC 2.91 L (4.8-10.8) K/uL RBC 5.10 (4.7-6.1) M/uL Hgb 14.1 (14.0-18.0) g/dL Hct 42.6 (42-52) % MCV 83.5 (80-100) fL MCH 27.6 (25-34) pg MCHC 33.1 (32-36) g/dL RDW Std Deviation 41.7 (36.4-46.3) fL RDW Coeff of Jamar 13.6 (11.5-14.5) % Plt Count 148 (130-400) K/uL MPV 10.2 (7.4-10.4) fL Immature Gran % (Auto) 0.3 % Neut % (Auto) 68.4 % Lymph % (Auto) 21.0 % Carolina % (Auto) 10.3 % Eos % (Auto) 0.0 % Baso % (Auto) 0.0 % Neut # (Auto) 1.99 (1.4-6.5) K/uL Lymph # (Auto) 0.61 L (1.2-3.4) K/uL [place] # (Auto) 0.30 (0.11-0.59) K/uL Eos # (Auto) 0.00 (0-0.5) K/uL Baso # (Auto) 0.00 (0-0.2) K/uL Immature Gran # (Auto) 0.01 (0.00-0.02) K/uL Sodium 136 (136-145) mmol/L Potassium 4.0 (3.5-5.1) mmol/L Chloride 106 (98-107) mmol/L Carbon Dioxide 23 (21-32) mmol/L Anion Gap 7.0 (3-11) BUN 22 H (7-18) mg/dl Creatinine 1.77 H (0.6-1.4) mg/dl Est Cr Clr Drug Dosing Not Reportable Est GFR ( Amer) 49.0 ml/min Est GFR (Non-Af Amer) 42.3 ml/min BUN/Creatinine Ratio 12.5 (10-20) Glucose 235 H (70-99) mg/dl Lactate (0.4-2.0) mmol/L Calcium 8.0 L (8.5-10.1) mg/dl Total Bilirubin 0.4 (0.2-1) mg/dl AST 72 H (15-37) U/L ALT 71 (12-78) U/L Alkaline Phosphatase 85 (45-117) U/L Troponin I (0-0.045) ng/ml Total Protein 7.2 (6.4-8.2) gm/dl Albumin 3.2 L (3.4-5.0) gm/dl Globulin 4.0 (2.5-4.0) gm/dl Albumin/Globulin Ratio 0.8 L (0.9-2) Procalcitonin (0-0.5) ng/ml Anaplasma Smear See Comment Lyme Disease IgG Ab (Negative) Lyme Disease IgM Ab (Negative) COVID-19 Eval Order SARS-CoV-2 (PCR) (Negative) 05/20/21 05/20/21 05/20/21 Range/Units 08:00 08:00 08:45 WBC (4.8-10.8) K/uL RBC (4.7-6.1) M/uL Hgb (14.0-18.0) g/dL Hct (42-52) % MCV (80-100) fL MCH (25-34) pg MCHC (32-36) g/dL RDW Std Deviation (36.4-46.3) fL RDW Coeff of Jamar (11.5-14.5) % Plt Count (130-400) K/uL MPV (7.4-10.4) fL Immature Gran % (Auto) % Neut % (Auto) % Lymph % (Auto) % [place] % (Auto) % Eos % (Auto) % Baso % (Auto) % Neut # (Auto) (1.4-6.5) K/uL Lymph # (Auto) (1.2-3.4) K/uL [place] # (Auto) (0.11-0.59) K/uL Eos # (Auto) (0-0.5) K/uL Baso # (Auto) (0-0.2) K/uL Immature Gran # (Auto) (0.00-0.02) K/uL Sodium (136-145) mmol/L Potassium (3.5-5.1) mmol/L Chloride (98-107) mmol/L Carbon Dioxide (21-32) mmol/L Anion Gap (3-11) BUN (7-18) mg/dl Creatinine (0.6-1.4) mg/dl Est Cr Clr Drug Dosing Est GFR ( Amer) ml/min Est GFR (Non-Af Amer) ml/min BUN/Creatinine Ratio (10-20) Glucose (70-99) mg/dl Lactate (0.4-2.0) mmol/L Calcium (8.5-10.1) mg/dl Total Bilirubin (0.2-1) mg/dl AST (15-37) U/L ALT (12-78) U/L Alkaline Phosphatase (45-117) U/L Troponin I < 0.015 (0-0.045) ng/ml Total Protein (6.4-8.2) gm/dl Albumin (3.4-5.0) gm/dl Globulin (2.5-4.0) gm/dl Albumin/Globulin Ratio (0.9-2) Procalcitonin 0.15 (0-0.5) ng/ml Anaplasma Smear Lyme Disease IgG Ab Negative (Negative) Lyme Disease IgM Ab Negative (Negative) COVID-19 Eval Order Covid19 at [facility] SARS-CoV-2 (PCR) (Negative) 05/20/21 05/20/21 Range/Units 08:45 09:05 WBC (4.8-10.8) K/uL RBC (4.7-6.1) M/uL Hgb (14.0-18.0) g/dL Hct (42-52) % MCV (80-100) fL MCH (25-34) pg MCHC (32-36) g/dL RDW Std Deviation (36.4-46.3) fL RDW Coeff of Jamar (11.5-14.5) % Plt Count (130-400) K/uL MPV (7.4-10.4) fL Immature Gran % (Auto) % Neut % (Auto) % Lymph % (Auto) % [place] % (Auto) % Eos % (Auto) % Baso % (Auto) % Neut # (Auto) (1.4-6.5) K/uL Lymph # (Auto) (1.2-3.4) K/uL [place] # (Auto) (0.11-0.59) K/uL Eos # (Auto) (0-0.5) K/uL Baso # (Auto) (0-0.2) K/uL Immature Gran # (Auto) (0.00-0.02) K/uL Sodium (136-145) mmol/L Potassium (3.5-5.1) mmol/L Chloride (98-107) mmol/L Carbon Dioxide (21-32) mmol/L Anion Gap (3-11) BUN (7-18) mg/dl Creatinine (0.6-1.4) mg/dl Est Cr Clr Drug Dosing Est GFR ( Amer) ml/min Est GFR (Non-Af Amer) ml/min BUN/Creatinine Ratio (10-20) Glucose (70-99) mg/dl Lactate 1.1 (0.4-2.0) mmol/L Calcium (8.5-10.1) mg/dl Total Bilirubin (0.2-1) mg/dl AST (15-37) U/L ALT (12-78) U/L Alkaline Phosphatase (45-117) U/L Troponin I (0-0.045) ng/ml Total Protein (6.4-8.2) gm/dl Albumin (3.4-5.0) gm/dl Globulin (2.5-4.0) gm/dl Albumin/Globulin Ratio (0.9-2) Procalcitonin (0-0.5) ng/ml Anaplasma Smear Lyme Disease IgG Ab (Negative) Lyme Disease IgM Ab (Negative) COVID-19 Eval Order SARS-CoV-2 (PCR) POSITIVE A* (Negative) Administered Medications Acetaminophen (Acetaminophen 325 Mg Tab) 650 mg PO Q4H PRN PRN Reason: pain/fever Stop: 06/19/21 16:24 Last Admin: 05/20/21 17:14 Dose: 650 mg Documented by: [id number] Albuterol (Albut/Ipratrop 3mg/0.5mg Neb 3 Ml Vial) 3 ml NEB QIDR [place] Stop: 06/19/21 16:24 Last Admin: 05/20/21 17:03 Dose: 3 ml Documented by: [id number] Ascorbic Acid (Ascorbic Acid 500 Mg Tab) 500 mg PO [facility] Stop: 06/19/21 16:24 Last Admin: 05/20/21 17:13 Dose: 500 mg Documented by: [id number] Benzonatate (Benzonatate 100 Mg Capsule) 100 mg PO TID PRN PRN Reason: cough Stop: 06/19/21 16:24 Last Admin: 05/20/21 17:14 Dose: 100 mg Documented by: [id number] Enoxaparin Sodium (Enoxaparin Inj 40 Mg/0.4 Ml Syr) 40 mg SQ [facility] Stop: 06/19/21 16:24 Last Admin: 05/20/21 17:13 Dose: 40 mg Documented by: [id number] Dexamethasone 6 mg/ Syringe 1.5 mls @ 1 mls/min IV DAILY [facility] Stop: 05/30/21 16:24 Last Admin: 05/20/21 17:13 Dose: 1 mls/min Documented by: [id number] Azithromycin 500 mg/ Dextrose 255 mls @ 125 mls/hr IV DAILY@1600 [facility] Stop: 05/27/21 16:24 Last Admin: 05/20/21 17:14 Dose: 125 mls/hr Documented by: [id number] Magnesium Hydroxide (Magnesium Hydroxide Susp 30 Ml Udc) 30 ml PO Q6H PRN PRN Reason: Constipation Stop: 06/19/21 16:24 Last Admin: 05/20/21 17:15 Dose: 30 ml Documented by: [id number] Zinc Sulfate (Zinc Sulfate 220 Mg Capsule) 220 mg PO [facility] Stop: 06/19/21 16:24 Last Admin: 05/20/21 17:13 Dose: 220 mg Documented by: [id number] Discontinued Medications Acetaminophen (Acetaminophen 500 Mg Tab) 1,000 mg PO ONE STA Stop: 05/20/21 08:35 Last Admin: 05/20/21 09:04 Dose: 1,000 mg Documented by: [id number] Furosemide (Furosemide 40 Mg/4 Ml Vial) 20 mg IV NOW STA Stop: 05/20/21 10:43 Last Admin: 05/20/21 10:59 Dose: 20 mg Documented by: [id number] Sodium Chloride (Nss) 500 mls @ 999 mls/hr IV .Q31M STA Stop: 05/20/21 09:04 Last Infusion: 05/20/21 10:22 Dose: 0 mls/hr Documented by: [id number] Admin: 05/20/21 09:04 Dose: 999 mls/hr Documented by: [id number] Remdesivir 200 mg/ Sodium (Chloride) 250 mls @ 125 mls/hr IV ONE STA; Protocol Stop: 05/20/21 12:41 Last Infusion: 05/20/21 13:48 Dose: 0 mls/hr Documented by: [id number] Admin: 05/20/21 11:14 Dose: 125 mls/hr Documented by: [id number] Imaging Data Radiologist's Impression: Chest X-Ray 05/20/21 08:34 XR chest 1V portable HISTORY: 56 years-old Male Fever, cough, SOB acute fever with cough and shortness of breath COMPARISON: Chest radiograph 10/11/2019 TECHNIQUE: Portable AP view of the chest FINDINGS: Cardiac silhouette is enlarged. Pulmonary vascular congestion with ill-defined opacities of the mid and lower lung zones. No pneumothorax or large pleural effusion. Degenerative changes of the shoulders and spine. IMPRESSION: 1. Cardiomegaly with pulmonary vascular congestion. 2. Ill-defined opacities of the mid and lower lung zones are suspicious for a superimposed infectious or inflammatory pneumonitis. ACT 112: Negative or not required by law. The above report was generated using voice recognition software. It may contain grammatical, syntax or spelling errors. Electronically signed by: Varinder Monaco M.D. 05/20/2021 9:06 AM Discharge Plan Visit Data Chief Complaint: Illness Stated Complaint: ABDOMINAL PAIN,[place],CHEST PRESSURE ED Provider: Velasquez Horan ED Midlevel Provider: Pushpa Treviño Discharge Problem: Pneumonia due to COVID-19 virus, Hypoxemia, Leukopenia Patient Disposition: Admitted As Inpatient Condition: Good Discharge Instructions Interventions: ED Discharge Assessment Last Done: 05/20/21 15:25 Discharge Problem: Leukopenia Qualifiers: Leukopenia type: unspecified Qualified Code(s): D72.819 - Decreased white blood cell count, unspecified
[2021-05-20 10:01] LABS: Procalcitonin 0.15 ng/ml (0-0.5)
[2021-05-20 10:07] LABS: Lyme Ab IgG w/WB Rflx Negative (Negative); Lyme Ab IgM w/WB Rflx Negative (Negative)
[2021-05-20] MEDS ORDERED: FUROSEMIDE 40 MG/4 ML VIAL IV STA (10:42)
[2021-05-20] MEDS ORDERED: REMDESIVIR 200 MG in SODIUM CHLORIDE 0.9% 210 ML IV STA (10:42)
--- NOTE | 2021-05-20 13:55 | History & Physical Report ---
Date of Service May 20, 2021 Assessment & Plan (1) Pneumonia due to COVID-19 virus: Plan: * Patient with fever, hypoxemia, and mild tachypnea in addition to leukopenia and patchy opacities seen on chest x-ray. * Pulse ox responded to 2 L of supplemental oxygen. We will continue supplemental oxygen to maintain a pulse ox >/= 90% * Will start remdesivir with 200 mg today followed by 100 mg days 1 through 5 pending patient requiring supplemental oxygen * Decadron 6 mg IV daily * Will initiate empiric antibiotic therapy (Rocephin/azithromycin) for questionable bacterial coinfection * Will start mucolytic agents, antitussives as needed, and nebulized treatments as needed * Zinc/vitamin C for immune support * APAP as needed for fever * 1 dose of IV Lasix today. We will further assess tomorrow. Patient with some mild pulmonary vascular congestion and orthopnealikely associated to Covid (2) Hypoxemia: Plan: * See above (3) Leukopenia: Plan: * Likely secondary to #1. Will trend (4) Uncontrolled type 2 diabetes mellitus: Plan: * Blood sugars likely to remain elevated with addition of Decadron * Will hold metformin/glimepiride while in house. * Patient does not use insulin at home. Will initiate Lantus 10 units at night along with analog for sliding scale/correction dosing * Will obtain A1c to further assess control (5) Stage 3b chronic kidney disease: Plan: * At baseline * Hold ARB/Metformin for now (6) Hypertension: Plan: * Patient marginally hypotensive. Hold Norvasc/losartan (7) Hyperlipidemia: Plan: * Hold statin for now (8) Obesity: Plan: * May have undiagnosed COLT. Will monitor for nocturnal hypoxemia Plan: * Lovenox for DVT prophylaxis * prn Meds: MOM, Maalox, Zofran, APAP * Follow-up labs in a.m. to trend * Plan of care to be discussed with Dr. Torrez. Further orders as warranted. History of Present Illness Chief Complaint: Flu like symptoms x 5 days. Primary Care Provider: Jake Linder Mr. Hickman is a 56-year-old white male who is morbidly obese. He has a PMHx of NIDDM, HTN, and HLD. In addition, he has listed stage III CKD (but is unaware of this diagnosis). He presented to the ED with a 5-day history of flulike symptoms. Started with headache, F/C, myalgias and arthralgias. This progressed into nausea with dry heaves. No emesis. Denies diarrhea. Was self treating with Tylenol/ibuprofen. Has now developed shortness of breath with exertion and a feeling as if he "cannot catch his breath". Denies chest pain or palpitations. Isidra had similar symptoms that started prior to patient's. 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 Work-up in the ED: Temp of 101.4 and mild tachypnea of 28. Pulse ox initially 96% on room air; however, he did drop to 88%. Responded to 2 L of supplemental oxygen. Labs revealed mild leukopenia of 2.9. Metabolic panel was unremarkable. Creatinine 1.77 (which is baseline with review of old labs). His Covid PCR test is positive. Chest x-ray shows patchy groundglass opacities bilaterally with questionable pulmonary vascular congestion. EKG is nonacute. Patient will be hospitalized for further evaluation and care. Patient is fully vaccinated. Had J&J vaccine 01/2021 Allergies Allergy/AdvReac Type Severity Reaction Status Date / Time No Known Allergies Allergy Verified 11/21/20 05:43 Home Medications Medication Instructions Recorded Confirmed Type amlodipine 10 mg tablet 10 mg PO QAM 03/08/19 05/20/21 History aspirin 81 mg tablet,delayed 81 mg PO QAM 03/08/19 05/20/21 History release (Aspir-) atorvastatin 20 mg tablet (Lipitor) 20 mg PO HS 03/08/19 05/20/21 History cetirizine 10 mg tablet (Zyrtec) 10 mg PO QAM 03/08/19 05/20/21 History glimepiride 2 mg tablet 2 mg PO QAM 03/08/19 05/20/21 History losartan 100 mg tablet 100 mg PO QAM 03/08/19 05/20/21 History metformin 750 mg tablet,extended 750 mg PO PM 03/08/19 05/20/21 History release 24 hr allopurinol 100 mg tablet 100 mg PO QAM 11/06/20 05/20/21 History liraglutide 0.6 mg/0.1 mL (18 mg/3 1.2 mg SUBCUT QAM #18 ml 11/16/20 05/20/21 Rx mL) subcutaneous pen injector apixaban 2.5 mg tablet (Eliquis) 2.5 mg PO BID #60 tab 11/21/20 05/20/21 Rx oxycodone-acetaminophen 5 mg-325 2 tab PO Q4H PRN #24 tab 11/21/20 05/20/21 Rx mg tablet (Percocet) Past Med/Surg History Medical History Arthritis Diabetes mellitus, type 2 NIDDM Hx of gout Hyperlipidemia Hypertension Morbid obesity Osteoarthritis Stage 3b chronic kidney disease Surgical History H/O elbow surgery Right scope 06/16/17 - Glidescope #4, ETT #8.0, HiLo Oral, Grade 1 View, Cords Clear, Atraumatic x 1 attempt History of arthroscopy Right knee scope: 07/28/17[place] [facility] [place] of arthroscopy of left knee Left knee scope: 03/22/19: Grade view 1, Glidescope #4, ETT 8.0 at [facility] (weight at time 165kg) History of left knee replacement Left TKA: 11/09/19: SAB x3 attempts + PNB at [facility] History of total hip arthroplasty R/L Family History Father Diabetes Obesity Mother Hypertension Other No family history of adverse response to anesthesia Social History (Updated 05/20/21 @ 14:19 by Keya Cui PA-C) Smoking Status: Never smoker Tobacco Type: Smokeless Tobacco (Dip or Chew) Second Hand Exposure: Yes (bars); Do You Dip or Chew Tobacco: Yes (1 can Q3Days); Tobacco Cessation Education Requested by Patient: No Hx Alcohol Use: Yes Alcohol type: beer Hx Substance Use: No Preferred Language: Maori Communication Ability: Effective Visual Impairment: No Limitations Hearing Ability: Normal Marketing Business Analyst Required: No Beliefs That Will Affect Care: None marital status: Current Living Situation: Spouse current occupational status: employed Other Information That Helps Us Care for You: No Feels Safe at Home: Yes Assistive Devices: Oxygen - Continuous Review of Systems Review of Systems: As stated above, patient reports headache, fevers, chills, myalgias, arthralgias, nausea with dry heaves, dyspnea on exertion. In addition, he reports decreased taste/smell, dry cough and mild orthopnea. Otherwise, patient denies nasal congestion, sore throat, CP, palpitations, PND, peripheral edema, abdominal pain, vomiting, diarrhea, constipation, melena, hematochezia, dysuria, hematuria, urinary frequency, back pain, joint pain, swelling, easy bruising or bleeding, polydipsia, polyuria, polyphagia. Physical Exam Physical Exam: General: Resting comfortably in his hospital bed. Breathing comfortably on supplemental oxygen. Does not appear ill or toxic Neck: No JVD. Negative hepatojugular reflex Cardiac: Distant/diminished, likely due to habitus Lungs: Diminished without wheezes, rales or rhonchi. Positive egophony in the right base Abdomen: Normoactive X4. Soft and nontender in all quadrants. Negative hepatojugular reflex Extremities: + Adiposity without true edema Neuro: A&O X4 cranial nerves II through XII are grossly intact no focal neuro deficits Skin: Vascular changes of the bilateral lower extremities without obvious skin lesions Results & Data Results & Data ([facility]) Vital Signs (Past 12 Hours) Vital Signs Temp Pulse Resp BP Pulse Ox 05/20/21 12:30 70 22 101/58 L 95 05/20/21 12:00 64 26 H 111/53 L 93 05/20/21 11:30 72 22 99/59 L 93 05/20/21 11:00 73 24 96/50 L 93 05/20/21 10:31 80 22 101/58 L 94 05/20/21 10:01 79 108/76 93 05/20/21 09:30 77 28 H 118/55 L 96 05/20/21 09:25 88 L 05/20/21 09:01 80 28 H 114/66 91 05/20/21 08:30 85 26 H 111/72 91 05/20/21 08:12 38.6 C H 05/20/21 08:05 84 26 H 127/75 91 05/20/21 07:15 37.6 C H 89 18 106/70 93 Laboratory Results 05/20/21 08:00 05/20/21 08:00 Total bilirubin: 0.4 AST: 72 ALT: 71 Covid PCR: Positive Diagnostic Findings CXR: FINDINGS: Cardiac silhouette is enlarged. Pulmonary vascular congestion with ill-defined opacities of the mid and lower lung zones. No pneumothorax or large pleural effusion. Degenerative changes of the shoulders and spine. IMPRESSION: 1. Cardiomegaly with pulmonary vascular congestion. 2. Ill-defined opacities of the mid and lower lung zones are suspicious for a superimposed infectious or inflammatory pneumonitis. ECG Additional Comments: Normal sinus rhythm with a rate of 85 bpm. Left axis d eviation. Poor R wave progression. Code Status & VTE Plan VTE Prophylaxis Plan VTE Prophylaxis will be ordered: Yes Supervising Physician Co-Signing Physician Notes Patient seen and examined with Keya Cui. I agree with their exam findings, review of systems, assessment and plan. I personally reviewed the lab work and imaging as well. patient doing well on low flow oxygen he confirms he got vaccine in January his appetite has been poor but getting better explained that he will be here until off oxygen, hopeful in a few days - COVID 19 pneumonia with acute hypoxic respiratory failure dexamethasone 6mg IV daily x 10 days Rocephin and Zithromax Remdesivir encourage PO intake PG Care Time/CCT Total # of Minutes Spent Total Time Spent with Patient: Total time spent is greater than 50% in coordination of care (as documented) at patient's floor/unit and/or counseling patient: [place] [address] Initial Inpt Care Lvl 3 Patient Type New Medical Decision Making High Complexity Diagnoses Pneumonia due to COVID-19 virus U07.1; J12.82 Hypoxemia R09.02 Leukopenia D72.819 Uncontrolled type 2 diabetes mellitus E11.65 Stage 3b chronic kidney disease N18.3 Hypertension I10 Hyperlipidemia E78.5 Obesity E66.9 Time Spent (min) 60
[2021-05-20] MEDS ORDERED: ALUMINUM/MAGNESIUM SUSP 30 ML UDC PO PRN (16:25)
[2021-05-20] MEDS ORDERED: MAGNESIUM HYDROXIDE SUSP 30 ML UDC PO PRN (16:25)
[2021-05-20] MEDS ORDERED: ONDANSETRON INJ 2 MG/ML 2 ML VIAL IV PRN (16:25)
[2021-05-20] MEDS ORDERED: POLYETHYLENE (MIRALAX) 17 GM PACK PO PRN (16:25)
[2021-05-20] MEDS: ALBUT/IPRATROP 3MG/0.5MG NEB 3 ML VIAL NEB SCH ×2 (17:03→19:58)
[2021-05-20] MEDS: ENOXAPARIN INJ 40 MG/0.4 ML SYR SQ SCH (17:13)
[2021-05-20] MEDS: ASCORBIC ACID 500 MG TAB PO SCH (17:13)
[2021-05-20] MEDS: ZINC SULFATE 220 MG CAPSULE PO SCH (17:13)
[2021-05-20] MEDS: dexAMETHasone 6 MG in SYRINGE 0 ML IV SCH (17:13)
[2021-05-20] MEDS: ACETAMINOPHEN 325 MG TAB PO PRN (17:14)
[2021-05-20] MEDS: AZITHROMYCIN 500 MG in DEXTROSE 5% 250 ML IV SCH (17:14)
[2021-05-20] MEDS: BENZONATATE 100 MG CAPSULE PO PRN (17:14)
[2021-05-20] MEDS: INSULIN ASPART 100 UNITS/ML 3 ML PEN SC SCH ×3 (18:37→22:15)
[2021-05-20 19:16] LABS: Appearance Urine Clear (Clear); Bacteria Urine Automated Negative (Negative); Bilirubin Urine Negative (Negative); Blood Urine 1+ (Negative); Color Urine Yellow; Glucose Urine UA Negative (Negative); Ketones Urine Negative (Negative); Leukocyte Esterase Urine Negative (Negative); Nitrite Urine Negative (Negative); Protein Urine 1+ (Negative); RBC Urine Automated 0-4 /hpf (0-4); Specific Gravity Urine 1.019 (1.000-1.030); Urobilinogen Urine Negative (Negative)
[2021-05-20] MEDS: cefTRIAXone SODIUM 2,000 MG in DEXTROSE 5% 50 ML IV SCH (19:49)
[2021-05-20] MEDS ORDERED: INSULIN GLARGINE SOLOSTAR 100 UNITS/ML 3 ML PEN SC SCH (21:00)
[2021-05-20] MEDS: guaiFENesin 600 MG TABCR PO SCH (21:53)
[2021-05-21 07:28] LABS: Hematocrit (blood only) 42.7 % (42-52); Hemoglobin 13.9 g/dL (14.0-18.0); Lymphocytes # (auto) 0.61 K/uL (1.2-3.4); Lymphocytes % (auto) 27.4 %; Mean Corpuscular Hemoglobin 27.5 pg (25-34); Mean Corpuscular Hgb Conc 32.6 g/dL (32-36); Mean Corpuscular Volume 84.6 fL (80-100); Mean Platelet Volume 10.6 fL (7.4-10.4); Neutrophils # (auto) 1.42 K/uL (1.4-6.5); Neutrophils % (auto) 63.6 %; Platelet Count 168 K/uL (130-400); RDW Coefficient of Variation 13.8 % (11.5-14.5); RDW Standard Deviation 42.3 fL (36.4-46.3); Red Blood Count 5.05 M/uL (4.7-6.1); White Blood Count 2.23 K/uL (4.8-10.8)
[2021-05-21 07:47] LABS: Estimated Average Glucose 246 mg/dl; Hemoglobin A1C 10.2 % (4.5-5.6)
[2021-05-21] MEDS: ALBUT/IPRATROP 3MG/0.5MG NEB 3 ML VIAL NEB SCH ×4 (08:09→19:40)
[2021-05-21 08:16] LABS: Albumin Level 3.1 gm/dl (3.4-5.0); Creatinine Clr Calc Pharmacy 68.4 ml/min; Est GFR (Non-African American) 36.3 ml/min; Potassium 4.2 mmol/L (3.5-5.1)
[2021-05-21 08:19] LABS: Albumin Globulin Ratio 0.7 (0.9-2); Bilirubin,Total 0.3 mg/dl (0.2-1); Globulin 4.4 gm/dl (2.5-4.0); Total Protein 7.5 gm/dl (6.4-8.2)
[2021-05-21] MEDS: ASCORBIC ACID 500 MG TAB PO SCH (08:55)
[2021-05-21] MEDS: ZINC SULFATE 220 MG CAPSULE PO SCH (08:55)
[2021-05-21] MEDS: dexAMETHasone 6 MG in SYRINGE 0 ML IV SCH (08:55)
[2021-05-21] MEDS: BENZONATATE 100 MG CAPSULE PO PRN ×2 (08:55→23:21)
[2021-05-21] MEDS: allopurinoL 100 MG TAB PO SCH (08:55)
[2021-05-21] MEDS: ENOXAPARIN INJ 40 MG/0.4 ML SYR SQ SCH (08:56)
[2021-05-21] MEDS: guaiFENesin 600 MG TABCR PO SCH ×2 (08:56→22:13)
[2021-05-21] MEDS ORDERED: NON-FORMULARY MEDICATION (Liraglutide 0.6 mg/0.1 mL (18 mg/3 mL) pen injector) SQ SCH (09:00)
[2021-05-21] MEDS: ASPIRIN 81 MG ECTAB PO SCH (09:13)
[2021-05-21] MEDS: INSULIN ASPART 100 UNITS/ML 3 ML PEN SC SCH ×5 (09:31→22:45)
[2021-05-21] MEDS: REMDESIVIR 100mg: Days 2-5 IV SCH (12:45)
[2021-05-21] MEDS ORDERED: ALBUTEROL 0.083% NEBU SOLN 3 ML VIAL NEB PRN (13:39)
[2021-05-21] MEDS: SODIUM CHLORIDE 0.9% 10ML FLUSH IV SCH (14:01)
[2021-05-21] MEDS: AZITHROMYCIN 500 MG in DEXTROSE 5% 250 ML IV SCH (15:48)
[2021-05-21] MEDS: ACETAMINOPHEN 325 MG TAB PO PRN (15:48)
--- NOTE | 2021-05-21 17:58 | Hospitalist Progress Note ---
Date of Service May 21, 2021 Assessment & Plan (1) Pneumonia due to COVID-19 virus: Plan: * Patient with fever, hypoxemia, and mild tachypnea in addition to leukopenia and patchy opacities seen on chest x-ray. * Pulse ox responded to 2 L of supplemental oxygen. We will continue supplemental oxygen to maintain a pulse ox >/= 90% * Continue remdesivir pending patient requiring supplemental oxygen * Decadron 6 mg IV daily * Continue empiric antibiotic therapy (Rocephin/azithromycin) for questionable bacterial coinfection * Continue mucolytic agents, antitussives as needed, and nebulized treatments--but will make these routine as opposed to as needed at least for 24 hours * Zinc/vitamin C for immune support * APAP as needed for fever * 1 dose of IV Lasix given yesterday. No additional Lasix needed for now. We will continue to monitor. * Add incentive spirometry (2) Hypoxemia: Plan: * See above (3) Leukopenia: Plan: * Likely secondary to #1. continue to trend (4) CHI (acute kidney injury): Plan: * Metformin and losartan remain on hold * Creatinine slightly up today from yesterday but not far from baseline. On Decadron and did receive 1 dose of Lasix * We will continue to monitor. No fluids for now given Covid and risk for pulmonary vascular congestion which will only worsen respiratory status (5) Hyperglycemia: Plan: * Lengthy discussion with patient regarding the importance of good glycemic control * A1c way above goal * At this time, would permanently discontinue his Metformin given his underlying kidney impairment * Lengthy discussion with patient regarding correlation between kidney disease and uncontrolled diabetes along with other sequela from uncontrolled diabetes mellitus * Plan is for long-term insulin therapy. Will uptitrate to 20 units. Continue analog for sliding scale/correction dosing. NPH added by Dr. Torrez given Decadron on board (6) Uncontrolled type 2 diabetes mellitus: Plan: * See above (7) Stage 3b chronic kidney disease: Plan: * Continue to hold ARB/Metformin. Recommend total discontinuation of Metformin as discussed above. May need to consider additional/other BP medication. None needed at present. BP 115/68 (8) Hypertension: Plan: * Norvasc and losartan are currently on hold. * May need to permanently discontinue losartan. * Continue to hold Norvasc for now. * BP 115/68 without any medication. * May consider resumption of Norvasc if needed (9) Hyperlipidemia: Plan: * Hold statin for now (10) Obesity: Plan: * May have undiagnosed COLT. Will monitor for nocturnal hypoxemia Plan: * Lovenox for DVT prophylaxis * prn Meds: MOM, Maalox, Zofran, APAP * Follow-up labs in a.m. to trend * Plan of care to be discussed with Dr. Torrez. Further orders as warranted. Admission and Anticipated Discharge Date Admission Date: May 20, 2021 Subjective Patient seen on daily rounds today. Overall reports improvement in his symptomatology. Still requiring 2 L of supplemental oxygen but denies shortness of breath at rest. Has not been up to toilet. Appetite significantly improved and he is no longer having nausea/dry heaves. Denies diarrhea. Patient has not had any subsequent fever spikes since initial temp noted in the ED. Blood sugars have been markedly elevated in the 300s. A1c obtained and elevated at 10.2. His Metformin has been on hold given his chronic kidney disease with creatinine slightly above baseline. He was started on Lantus last evening. Based on weight, would need somewhere around 22 units; however, since he is insulin josie he was given 10 units. Fasting blood sugar this morning was 265. Review of Systems Review of Systems: All systems reviewed and are unremarkable except as noted in HPI and below Denies fevers, chills, headache, nasal congestion, sore throat, cough, chest pain, shortness of breath, abdominal pain, nausea, vomiting, dysuria, hematuria, frequency, skin lesions or rashes. Physical Exam Physical Exam: General: Morbidly obese. Resting comfortably in his hospital bed. Does not appear ill or toxic Neck: No JVD. Negative hepatojugular reflex Cardiac: Distant heart sounds likely due to habitus. Appears RRR without M/G/R Lungs: Speaking full sentences on supplemental oxygen. Breathing is nonlabored. Good air exchange throughout with end expiratory wheezes predominantly at the bases. These clear with coughing. Still with a faint positive egophony in the right base. Abdomen: Normoactive X4. Soft and nontender in all quadrants. Extremities: No peripheral clubbing cyanosis or edema Neuro: A&O X4 cranial nerves II through XII are grossly intact no focal neuro deficits Skin: No obvious skin lesions or rashes Results & Data Results & Data ([facility]) Vital Signs (Past 12 Hours) Vital Signs Temp Pulse Resp BP Pulse Ox 05/21/21 16:13 73 18 94 05/21/21 15:47 37.2 C 76 18 115/68 91 05/21/21 10:21 77 18 94 05/21/21 08:49 37.0 C 76 18 123/76 93 05/21/21 08:09 82 18 96 Laboratory Results 05/21/21 07:16 05/21/21 07:16 PG Care Time/CCT Total # of Minutes Spent Total Time Spent with Patient: Total time spent is greater than 50% in coordination of care (as documented) at patient's floor/unit and/or counseling patient: C[place] [address] Subseq Hosp Care Lvl 3 Patient Type Established History Detailed Exam Detailed Medical Decision Making High Complexity Diagnoses Pneumonia due to COVID-19 virus U07.1; J12.82 Hypoxemia R09.02 Leukopenia D72.819 Leukopenia type: unspecified Uncontrolled type 2 diabetes mellitus E11.65 Stage 3b chronic kidney disease N18.3 Hypertension I10 Hyperlipidemia E78.5 Obesity E66.9 CHI (acute kidney injury) N17.9 Hyperglycemia R73.9 (1) Leukopenia Leukopenia type: unspecified Qualified Code(s): D72.819 - Decreased white blood cell count, unspecified
[2021-05-21] MEDS: cefTRIAXone SODIUM 2,000 MG in DEXTROSE 5% 50 ML IV SCH (18:13)
[2021-05-21] MEDS ORDERED: Nursing to Pharmacy Communication SCH (18:15)
[2021-05-21] MEDS ORDERED: INSULIN GLARGINE SOLOSTAR 100 UNITS/ML 3 ML PEN SC SCH (21:00)
[2021-05-21] MEDS ORDERED: PHARMACY GLYCEMIC MGMT CONSULT PRN (22:33)
[2021-05-21] MEDS ORDERED: INSULIN GLARGINE SOLOSTAR 100 UNITS/ML 3 ML PEN SC ONE ×2 (22:45→23:15)
[2021-05-21] MEDS ORDERED: INSULIN HUMAN REGULAR PER UNIT 10 UNITS in SYRINGE 9.9 ML IV ONE (23:00)
[2021-05-22] MEDS ORDERED: INSULIN ASPART 100 UNITS/ML 3 ML PEN SC SCH
[2021-05-22] MEDS: INSULIN ASPART 100 UNITS/ML 3 ML PEN SC SCH ×6 (01:25→21:39)
--- NOTE | 2021-05-22 01:45 | Pharmacy Report ---
Pharmacy Glycemic Short Note 2 - Date of Service May 22, 2021 - Glycemic Short BSG Results (Last 24 hours): 05/21/21 05/21/21 05/21/21 07:16 08:46 12:41 Glucose 281 H POC Glucose 265 H 346 H* 05/21/21 05/21/21 05/21/21 12:43 18:02 18:06 Glucose POC Glucose 319 H* 456 H* 455 H* 05/21/21 05/21/21 05/22/21 22:09 22:12 01:09 Glucose POC Glucose 410 H* 387 H* 341 H* 05/22/21 01:11 Glucose POC Glucose 319 H* OUTPATIENT ANTIDIABETIC REGIMEN: * Metformin 750 mg PO qPM * Glimepiride 2 mg PO qAM * Liraglutide 1.2 mg SC qAM * HbA1c: 10.2% (05/20/21) ASSESSMENT: * TR is a 56 year old male admitted to [facility] on 05/20 with COVID-19 pneumonia * Ordered dexamethasone 6 mg IV daily * BSGs have been significantly elevated today, pharmacy consulted for glycemic management on 05/21 with HS BSG check of 410 mg/dL * Given nursing burden with insulin infusion in COVID patient, will start by adding IV insulin bolus, tightening Novolog with overnight checks, and increasing basal * Will order 0.4 unit/kg NPH with tomorrow's dose of dexamethasone PLAN FOR INPATIENT GLYCEMIC CONTROL: * Hold outpatient oral diabetes medications * Basal insulin * Lantus 10 units SC x 1 daily this morning * Lantus 35 units SC x 1 this evening * NPH 45 units SC qAM with IV dexamethasone (~0.4 unit/kg) * Reassess in AM * Bolus insulin * NovoLog per scale ACHS or Q6hrs while NPO * Goal Range: Low 110 mg/dL - High 140 mg/dL * Correction Factor: 10 mg/dL/unit * Nutritional / Prandial insulin per carb ratio of 1 unit per 3 grams CHO consumed PLAN FOR DISCHARGE: * HbA1c of 10.2% suggests very poor outpatient glycemic control * Patient will likely require insulin upon discharge - doses tbd
[2021-05-22 08:04] LABS: Hematocrit (blood only) 40.2 % (42-52); Hemoglobin 13.3 g/dL (14.0-18.0); Immature Granulocytes # (auto) 0.01 K/uL (0.00-0.02); Immature Granulocytes % (auto) 0.4 %; Lymphocytes # (auto) 0.62 K/uL (1.2-3.4); Lymphocytes % (auto) 23.9 %; Mean Corpuscular Hemoglobin 27.6 pg (25-34); Mean Corpuscular Hgb Conc 33.1 g/dL (32-36); Mean Corpuscular Volume 83.4 fL (80-100); Mean Platelet Volume 10.5 fL (7.4-10.4); Monocytes # (auto) 0.27 K/uL (0.11-0.59); Monocytes % (auto) 10.4 %; Neutrophils # (auto) 1.69 K/uL (1.4-6.5); Neutrophils % (auto) 65.3 %; Platelet Count 158 K/uL (130-400); RDW Coefficient of Variation 13.4 % (11.5-14.5); RDW Standard Deviation 40.3 fL (36.4-46.3); Red Blood Count 4.82 M/uL (4.7-6.1); White Blood Count 2.59 K/uL (4.8-10.8)
[2021-05-22] MEDS: ALBUT/IPRATROP 3MG/0.5MG NEB 3 ML VIAL NEB SCH ×2 (08:10→11:25)
[2021-05-22 08:46] LABS: Albumin Globulin Ratio 0.7 (0.9-2); Albumin Level 2.8 gm/dl (3.4-5.0); BUN Creatinine Ratio 17.4 (10-20); Bilirubin,Total 0.3 mg/dl (0.2-1); Calcium 8.7 mg/dl (8.5-10.1); Creatinine Clr Calc Pharmacy 78.6 ml/min; Est GFR (African American) 49.7 ml/min; Est GFR (Non-African American) 42.9 ml/min; Globulin 4.1 gm/dl (2.5-4.0); Magnesium 2.1 mg/dl (1.8-2.4); Potassium 4.7 mmol/L (3.5-5.1); Total Protein 6.9 gm/dl (6.4-8.2)
[2021-05-22] MEDS ORDERED: INSULIN GLARGINE SOLOSTAR 100 UNITS/ML 3 ML PEN SC SCH ×2 (09:00→11:27)
[2021-05-22] MEDS ORDERED: INSULIN HUMAN NPH SC SCH ×2 (09:00)
[2021-05-22] MEDS: ZINC SULFATE 220 MG CAPSULE PO SCH (09:11)
[2021-05-22] MEDS: allopurinoL 100 MG TAB PO SCH (09:11)
[2021-05-22] MEDS: ASPIRIN 81 MG ECTAB PO SCH (09:11)
[2021-05-22] MEDS: guaiFENesin 600 MG TABCR PO SCH ×2 (09:11→20:46)
[2021-05-22] MEDS: ENOXAPARIN INJ 40 MG/0.4 ML SYR SQ SCH (09:11)
[2021-05-22] MEDS: ASCORBIC ACID 500 MG TAB PO SCH (09:12)
[2021-05-22] MEDS: BENZONATATE 100 MG CAPSULE PO PRN ×2 (09:26→22:54)
[2021-05-22] MEDS: dexAMETHasone 6 MG in SYRINGE 0 ML IV SCH (09:28)
--- NOTE | 2021-05-22 09:43 | Pharmacy Report ---
Pharmacy Glycemic Short Note 2 - Date of Service May 22, 2021 - Glycemic Short BSG Results (Last 24 hours): 05/21/21 05/21/21 05/21/21 12:41 12:43 18:02 Glucose POC Glucose 346 H* 319 H* 456 H* 05/21/21 05/21/21 05/21/21 18:06 22:09 22:12 Glucose POC Glucose 455 H* 410 H* 387 H* 05/22/21 05/22/21 05/22/21 01:09 01:11 04:17 Glucose POC Glucose 341 H* 319 H* 294 H 05/22/21 05/22/21 07:26 09:07 Glucose 251 H POC Glucose 241 H OUTPATIENT ANTIDIABETIC REGIMEN: * Metformin 750 mg PO qPM * Glimepiride 2 mg PO qAM * Liraglutide 1.2 mg SC qAM * HbA1c: 10.2% (05/20/21) ASSESSMENT: 05/22/21: * Thien received 133 units of SQ insulin + 10 units regular IV insulin yesterday * 45 units basal * 88 units bolus * poor glycemic control d/t steroid induced hyperglycemia with A1c > 10% * Fasting BSG of 241 mg/dL. Will start Lantus 20 units BID (equivalent to weight/stress of 2 based on adjusted BW). * Continue once daily NPH for steroid induced hyperglycemia. Today will be patients first dose of NPH. * Tighten carb coverage and continue overnight checks Background: * TR is a 56 year old male admitted to [facility] on 05/20 with COVID-19 pneumonia * Ordered dexamethasone 6 mg IV daily * BSGs have been significantly elevated today, pharmacy consulted for glycemic management on 05/21 with HS BSG check of 410 mg/dL * Given nursing burden with insulin infusion in COVID patient, will start by adding IV insulin bolus, tightening Novolog with overnight checks, and increasing basal * Will order 0.4 unit/kg NPH with tomorrow's dose of dexamethasone PLAN FOR INPATIENT GLYCEMIC CONTROL: * Hold outpatient oral diabetes medications * Basal insulin * Lantus 20 units SQ BID * NPH 45 units SC qAM with IV dexamethasone (~0.4 unit/kg) * Bolus insulin - tighten carb coverage * NovoLog per scale ACHS or Q6hrs while NPO * Goal Range: Low 110 mg/dL - High 140 mg/dL * Correction Factor: 10 mg/dL/unit * Nutritional / Prandial insulin per carb ratio of 1 unit per 2.5 grams CHO consumed PLAN FOR DISCHARGE: * HbA1c of 10.2% suggests very poor outpatient glycemic control * Patient will likely require insulin upon discharge - doses tbd
--- NOTE | 2021-05-22 11:34 | XRay Report ---
XR chest 1V portable CLINICAL HISTORY: increased o2 requirements COMPARISON STUDY: May 20, 2021 FINDINGS: No pneumothorax. Minimal blunting of the left costophrenic angle which could be due to trace left pleural effusion or overlying soft tissue. Evaluation is limited due to patient body habitus and low inspiratory effort. Possible small atelectasis at the left base. Lung volumes are decreased with crowded lung markings. Cardiomediastinal silhouette is prominent which could be exaggerated due to portable technique and lo w inspiratory effort. No significant pulmonary vascular congestion.. Osseous structures: Degenerative changes of the bilateral acromioclavicular joints. Vertebral bodies are not well seen. IMPRESSION: 1. Possible atelectasis at the left base. Minimal blunting of the left costophrenic angle could be d ue to small left pleural effusion or superimposition of structures. 2. Limited exam due to patient's body habitus and low inspiratory effort. Further evaluation with PA and lateral chest radiograph is recommended. ACT 112: Negative or not required by law. The above report was generated using voice recognition software. It may contain grammatical, syntax o r spelling errors. Electronically signed by: Peggy Peters DO 05/22/2021 11:32 AM
[2021-05-22] MEDS ORDERED: FUROSEMIDE 40 MG in SYRINGE 0 ML IV ONE (11:45)
[2021-05-22] MEDS: REMDESIVIR 100mg: Days 2-5 IV SCH (12:35)
[2021-05-22] MEDS: amLODIPine BESYLATE 5 MG TAB PO SCH (12:35)
[2021-05-22] MEDS: SODIUM CHLORIDE 0.9% 10ML FLUSH IV SCH (13:35)
--- NOTE | 2021-05-22 15:42 | Hospitalist Progress Note ---
Date of Service May 22, 2021 Assessment & Plan (1) Pneumonia due to COVID-19 virus: Plan: * Patient initially with fever, hypoxemia, and mild tachypnea in addition to leukopenia and patchy opacities seen on chest x-ray. * Pulse ox has remained stable to 2-2.5 L of supplemental oxygen. We will continue supplemental oxygen to maintain a pulse ox >/= 90%. Was placed on 8L mask lastnight but likely d/t mouth breathing and suspect OHVS/COLT (undiagnosed). Need sleep study as an OP * Continue remdesivir pending patient requiring supplemental oxygen * Decadron 6 mg IV daily * Continue empiric antibiotic therapy (Rocephin/azithromycin) for questionable bacterial coinfection * Continue mucolytic agents, antitussives as needed, and nebulized treatments--but will make these routine as opposed to as needed at least for 24 hours * Zinc/vitamin C for immune support * APAP as needed for fever * additional dose of lasix today as CXR showing increased PVC. obtain echo to assess LVF * cont incentive spirometry (2) Hypoxemia: Plan: * See above (3) Leukopenia: Plan: * Likely secondary to #1. slowly improving * continue to trend (4) CHI (acute kidney injury): Plan: * Metformin and losartan remain on hold * cr. at baseline * On Decadron and did receive 1 dose of Lasix * We will continue to monitor. (5) Hyperglycemia: Plan: * Lengthy discussion with patient regarding the importance of good glycemic control * A1c way above goal * At this time, continue to hold his Metformin. may consider resumption pending what renal status is like. * Lengthy discussion with patient regarding correlation between kidney disease and uncontrolled diabetes along with other sequela from uncontrolled diabetes mellitus * Plan is for long-term insulin therapy. pharmacy consulted by overnight provider for glycemic control (6) Uncontrolled type 2 diabetes mellitus: Plan: * See above (7) Stage 3b chronic kidney disease: Plan: * Continue to hold ARB/Metformin. May need to consider additional/other BP medication. (8) Hypertension: Plan: * Norvasc will be resumed (however if echo show EF <30%-- will need to change to something different) * May need to permanently discontinue losartan. (9) Hyperlipidemia: Plan: * Hold statin for now (10) Obesity: Plan: * likely has undiagnosed COLT-- need sleep study as an OP Plan: * Lovenox for DVT prophylaxis * prn Meds: MOM, Maalox, Zofran, APAP * Follow-up labs in a.m. to trend * Plan of care to be discussed with Dr. Torrez. Further orders as warranted. Admission and Anticipated Discharge Date Admission Date: May 20, 2021 Subjective Patient seen on daily rounds today. Overall voices no complaints or concerns. Still has a dry cough that seems slightly worse when supine. Denies shortness of breath at rest. Is getting slightly dyspneic with toileting. Has been on 2 L supplemental oxygen to maintain a sat in the mid 90s. Was transitioned to 8 L Oxymask overnight. Patient reports that he was not short of breath but that he was snoring/mouth breathing and because he was sleeping, he was having a difficult time keeping the mask over his face/mouth. Would wake up to the mask around his ear, his neck, etc. This morning, patient's pulse ox is 95% on 2.5 L. Resting comfortably at rest. Denies nausea, abdominal pain, vomiting, or diarrhea. Has not had any fever spikes since day #1. denies orthopnea/PND WBC count slowly improving. Otherwise the rest of his lab data is unremarkable. Renal function at baseline. Blood sugars have been elevated. Again, patient with underlying diabetes and was not on insulin prior to this hospitalization. A1c obtained at 10.2. He has since been started on Lantus/log. Pharmacy consulted to help with glycemic control. Metformin on hold given his renal dysfunction. Norvasc/losartan remains on hold given renal dysfunction. Creatinine has since returned to baseline. Systolic blood pressure this morning 157. Review of Systems Review of Systems: All systems reviewed and are unremarkable except as noted in HPI and below Denies fevers, chills, headache, nasal congestion, sore throat, chest pain, shortness of breath, orthopnea, PND, abdominal pain, nausea, vomiting, dysuria, hematuria, frequency, skin lesions or rashes. Physical Exam Physical Exam: General: Resting comfortably in his hospital bed. NAD. Neck: No JVD. Negative hepatojugular reflex Cardiac: Distant heart sounds but regular rate and rhythm Lungs: Speaking full sentences on supplemental oxygen. No accessory muscle use. No labored breathing. Improved air exchange throughout with end expiratory wheezes that clears with coughing. Crackles at the bases Abdomen: Normoactive X4. Soft and nontender in all quadrants. Extremities: No peripheral clubbing cyanosis or edema Neuro: A&O X4 cranial nerves II through XII are grossly intact no focal neuro deficits Skin: No obvious skin lesions or rashes Results & Data Results & Data ([facility]) Vital Signs (Past 12 Hours) Vital Signs Temp Pulse Resp BP Pulse Ox Pulse Ox 05/22/21 12:30 36.9 C 72 21 118/77 95 05/22/21 09:31 36.7 C 73 20 155/77 H 94 05/22/21 08:10 73 20 92 05/22/21 08:00 93 Laboratory Results 05/22/21 07:26 05/22/21 07:26 Diagnostic Findings CXR read by myself: poor inspiratory film. increased PVC noted. PG Care Time/CCT Total # of Minutes Spent Total Time Spent with Patient: Total time spent is greater than 50% in coordination of care (as documented) at patient's floor/unit and/or counseling patient: [place] [address] Subseq Hosp Care Lvl 3 Patient Type Established History Detailed Exam Detailed Medical Decision Making Moderate Complexity Diagnoses Pneumonia due to COVID-19 virus U07.1; J12.82 Hypoxemia R09.02 Leukopenia D72.819 Leukopenia type: unspecified CHI (acute kidney injury) N17.9 Hyperglycemia R73.9 Uncontrolled type 2 diabetes mellitus E11.65 Stage 3b chronic kidney disease N18.3 Hypertension I10 Hyperlipidemia E78.5 Obesity E66.9 (1) Leukopenia Leukopenia type: unspecified Qualified Code(s): D72.819 - Decreased white blood cell count, unspecified
[2021-05-22] MEDS: AZITHROMYCIN 500 MG in DEXTROSE 5% 250 ML IV SCH (17:32)
[2021-05-22] MEDS: cefTRIAXone SODIUM 2,000 MG in DEXTROSE 5% 50 ML IV SCH (19:46)
--- NOTE | 2021-05-22 21:15 | XCELERA ---
[id number]
[2021-05-22] MEDS: INSULIN GLARGINE SOLOSTAR 100 UNITS/ML 3 ML PEN SC SCH (21:39)
[2021-05-23] MEDS: INSULIN ASPART 100 UNITS/ML 3 ML PEN SC SCH ×5 (00:56→18:07)
[2021-05-23 07:49] LABS: Basophils # (auto) 0.01 K/uL (0-0.2); Basophils % (auto) 0.2 %; Hematocrit (blood only) 39.4 % (42-52); Hemoglobin 13.2 g/dL (14.0-18.0); Immature Granulocytes # (auto) 0.01 K/uL (0.00-0.02); Immature Granulocytes % (auto) 0.2 %; Lymphocytes # (auto) 0.74 K/uL (1.2-3.4); Mean Corpuscular Hemoglobin 27.5 pg (25-34); Mean Corpuscular Hgb Conc 33.5 g/dL (32-36); Mean Corpuscular Volume 82.1 fL (80-100); Mean Platelet Volume 10.6 fL (7.4-10.4); Monocytes # (auto) 0.45 K/uL (0.11-0.59); Monocytes % (auto) 9.7 %; Neutrophils # (auto) 3.42 K/uL (1.4-6.5); Neutrophils % (auto) 73.9 %; Platelet Count 180 K/uL (130-400); RDW Coefficient of Variation 13.3 % (11.5-14.5); White Blood Count 4.63 K/uL (4.8-10.8)
[2021-05-23] MEDS: dexAMETHasone 6 MG in SYRINGE 0 ML IV SCH (07:59)
[2021-05-23] MEDS: ASCORBIC ACID 500 MG TAB PO SCH (08:00)
[2021-05-23] MEDS: ASPIRIN 81 MG ECTAB PO SCH (08:00)
[2021-05-23] MEDS: ZINC SULFATE 220 MG CAPSULE PO SCH (08:00)
[2021-05-23] MEDS: guaiFENesin 600 MG TABCR PO SCH ×2 (08:01→20:49)
[2021-05-23] MEDS: allopurinoL 100 MG TAB PO SCH (08:01)
[2021-05-23] MEDS: ENOXAPARIN INJ 40 MG/0.4 ML SYR SQ SCH (08:01)
[2021-05-23] MEDS: amLODIPine BESYLATE 5 MG TAB PO SCH (08:01)
[2021-05-23 08:30] LABS: Albumin Level 2.9 gm/dl (3.4-5.0); Calcium 8.5 mg/dl (8.5-10.1); Creatinine Clr Calc Pharmacy 88.8 ml/min; Est GFR (African American) 57.6 ml/min; Est GFR (Non-African American) 49.7 ml/min; Potassium 4.2 mmol/L (3.5-5.1)
[2021-05-23 08:32] LABS: Albumin Globulin Ratio 0.7 (0.9-2); Bilirubin,Total 0.3 mg/dl (0.2-1); Globulin 3.9 gm/dl (2.5-4.0); Total Protein 6.8 gm/dl (6.4-8.2)
[2021-05-23] MEDS ORDERED: INSULIN GLARGINE SOLOSTAR 100 UNITS/ML 3 ML PEN SC SCH (09:00)
[2021-05-23] MEDS ORDERED: ALBUTEROL HFA 8 GM INHALER INH PRN (09:32)
[2021-05-23] MEDS: INSULIN HUMAN NPH SC SCH (09:56)
--- NOTE | 2021-05-23 09:59 | Hospitalist Progress Note ---
Date of Service May 23, 2021 Assessment & Plan (1) Pneumonia due to COVID-19 virus: Plan: * Patient initially with fever, hypoxemia, and mild tachypnea in addition to leukopenia and patchy opacities seen on chest x-ray. * Pulse ox has remained stable to 2-2.5 L of supplemental oxygen. We will continue supplemental oxygen to maintain a pulse ox >/= 90%. Was placed on 8L mask overnight on 05/21-05/22- d/t mouth breathing and suspect OHVS/COLT (undiagnosed). Need sleep study as an OP * Continue remdesivir pending patient requiring supplemental oxygen * Staff encouraged to down taper oxygen to maintain a pulse ox greater/equal 90% * Decadron 6 mg IV daily * Continue empiric antibiotic therapy (Rocephin/azithromycin) for questionable bacterial coinfection * Continue mucolytic agents, antitussives as needed, and nebulized treatments. Given increased cough today, will make nebulized treatments and Tessalon Perles routine * Zinc/vitamin C for immune support * APAP as needed for fever * cont incentive spirometry -Patient getting extremely anxious/agitated with the isolation and lack of meals. Reassurance given. Lengthy discussion and time spent with patient today (2) Hypoxemia: Plan: * See above (3) Leukopenia: Plan: * Likely secondary to #1. Improved * continue to trend (4) CHI (acute kidney injury): Plan: * Metformin and losartan remain on hold * cr. at baseline * On Decadron and did receive 2 doses of Lasix (renal function slightly improved from baseline) * We will continue to monitor. (5) Hyperglycemia: Plan: * Lengthy discussion with patient regarding the importance of good glycemic control * A1c way above goal * At this time, continue to hold his Metformin. may consider resumption pending what renal status is like. * Lengthy discussion with patient regarding correlation between kidney disease and uncontrolled diabetes along with other sequela from uncontrolled diabetes mellitus * Plan is for long-term insulin therapy. pharmacy consulted by overnight provider for glycemic control (6) Uncontrolled type 2 diabetes mellitus: Plan: * See above (7) Stage 3b chronic kidney disease: Plan: * Continue to hold ARB/Metformin. May need to consider additional/other BP medication. (8) Hypertension: Plan: * Norvasc will be resumed (however if echo show EF <30%-- will need to change to something different) * BP currently controlled with discontinuation of losartan * May need to permanently discontinue losartan. (9) Hyperlipidemia: Plan: * Hold statin for now (10) Obesity: Plan: * likely has undiagnosed COLT-- need sleep study as an OP Plan: * Lovenox for DVT prophylaxis * prn Meds: MOM, Maalox, Zofran, APAP * Follow-up labs in a.m. to trend * Plan of care to be discussed with Dr. Torrez. Further orders as warranted. Admission and Anticipated Discharge Date Admission Date: May 20, 2021 Subjective Patient seen on daily rounds today. Worked up over multiple issues including meals coming late, meals being cold, not seeing family, etc. After calling patient, he reports that his cough seems slightly worse today. Having coughing spells that are making it difficult for him to "catch his breath". Denies having orthopnea or PND. Denies chest pain. Still requiring only 2 L of supplemental oxygen to keep his pulse ox in the low to mid 90s. Has been hemodynamically stable and afebrile. Denies fevers, chills, abdominal pain, nausea or vomiting. Renal function improved despite dose of Lasix given. Metformin and losartan have been held. Lantus on board with titration and blood sugars have been improving. Patient is requesting resumption of his Zyrtec. Complaining of dry and itchy eyes. Review of Systems Review of Systems: All systems reviewed and are unremarkable except as noted in HPI and below Denies fevers, chills, headache, nasal congestion, sore throat, cough, chest pain, shortness of breath, abdominal pain, nausea, vomiting, dysuria, hematuria, frequency, skin lesions or rashes. Physical Exam Physical Exam: General: Seems anxious and tearful today. Does have a persistent dry cough that seems to be causing breathlessness Neck: No JVD. Negative hepatojugular reflex Cardiac: Distant without M/G/R Lungs: Persistent cough as outlined above. Diminished breath sounds with bibasilar end expiratory wheezes Abdomen: Normoactive X4. Soft and nontender in all quadrants. Extremities: No peripheral clubbing cyanosis or edema Neuro: A&O X4 cranial nerves II through XII are grossly intact no focal neuro deficits Skin: No obvious skin lesions or rashes Results & Data Results & Data ([facility]) Vital Signs (Past 12 Hours) Vital Signs Temp Pulse Resp BP Pulse Ox 05/23/21 08:08 36.5 C 69 17 136/81 94 Laboratory Results 05/23/21 07:30 05/23/21 07:30 PG Care Time/CCT Total # of Minutes Spent Total Time Spent with Patient: Total time spent is greater than 50% in coordination of care (as documented) at patient's floor/unit and/or counseling patient: [place] [address] Subseq Hosp Care Lvl 2 Patient Type Established History Expanded Problem Focused Exam Expanded Problem Focused Medical Decision Making Low Complexity Diagnoses Pneumonia due to COVID-19 virus U07.1; J12.82 Hypoxemia R09.02 Leukopenia D72.819 Leukopenia type: unspecified CHI (acute kidney injury) N17.9 Hyperglycemia R73.9 Uncontrolled type 2 diabetes mellitus E11.65 Stage 3b chronic kidney disease N18.3 Hypertension I10 Hyperlipidemia E78.5 Obesity E66.9 Time Spent (min) 60 (1) Leukopenia Leukopenia type: unspecified Qualified Code(s): D72.819 - Decreased white blood cell count, unspecified
[2021-05-23] MEDS: ALBUT/IPRATROP 3MG/0.5MG NEB 3 ML VIAL NEB SCH ×3 (10:45→19:25)
--- NOTE | 2021-05-23 11:46 | Pharmacy Report ---
Pharmacy Glycemic Short Note 2 - Date of Service May 23, 2021 - Glycemic Short BSG Results (Last 24 hours): 05/22/21 05/22/21 05/22/21 12:34 17:28 20:49 Glucose POC Glucose 272 H 236 H 324 H* 05/22/21 05/23/21 05/23/21 20:51 00:45 04:29 Glucose POC Glucose 335 H* 284 H 151 H 05/23/21 05/23/21 07:30 07:57 Glucose 168 H POC Glucose 157 H OUTPATIENT ANTIDIABETIC REGIMEN: * Metformin 750 mg PO qPM * Glimepiride 2 mg PO qAM * Liraglutide 1.2 mg SC qAM * HbA1c: 10.2% (05/20/21) ASSESSMENT: 05/23/21: * Thien received 244 units of SQ insulin yesterday * 85 units basal * 159 units bolus * poor glycemic control d/t steroid induced hyperglycemia with A1c > 10% * Fasting BSG of 157 mg/dL. Continue Lantus. * Continue once daily NPH for steroid induced hyperglycemia - increase dose for elevated blood sugars all day yesterday * Tighten carb coverage and continue overnight checks 05/22/21: * Thien received 133 units of SQ insulin + 10 units regular IV insulin yesterday * 45 units basal * 88 units bolus * poor glycemic control d/t steroid induced hyperglycemia with A1c > 10% * Fasting BSG of 241 mg/dL. Will start Lantus 20 units BID (equivalent to weight/stress of 2 based on adjusted BW). * Continue once daily NPH for steroid induced hyperglycemia. Today will be patients first dose of NPH. * Tighten carb coverage and continue overnight checks Background: * TR is a 56 year old male admitted to [facility] on 05/20 with COVID-19 pneumonia * Ordered dexamethasone 6 mg IV daily * BSGs have been significantly elevated today, pharmacy consulted for glycemic management on 05/21 with HS BSG check of 410 mg/dL * Given nursing burden with insulin infusion in COVID patient, will start by adding IV insulin bolus, tightening Novolog with overnight checks, and increasing basal * Will order 0.4 unit/kg NPH with tomorrow's dose of dexamethasone PLAN FOR INPATIENT GLYCEMIC CONTROL: * Hold outpatient oral diabetes medications * Basal insulin * Lantus 20 units SQ BID * increase: NPH 55 units SC qAM with IV dexamethasone * Bolus insulin - tighten CF & CR * NovoLog per scale ACHS or Q6hrs while NPO and overnight at 0000 and 0400 * Goal Range: Low 110 mg/dL - High 140 mg/dL * Correction Factor: 8 mg/dL/unit * Nutritional / Prandial insulin per carb ratio of 1 unit per 2 grams CHO consumed PLAN FOR DISCHARGE: * HbA1c of 10.2% suggests very poor outpatient glycemic control * Patient will likely require insulin upon discharge - doses tbd
[2021-05-23] MEDS: REMDESIVIR 100mg: Days 2-5 IV SCH (12:54)
[2021-05-23] MEDS ORDERED: INSULIN HUMAN REGULAR PER UNIT 10 UNITS in SYRINGE 9.9 ML IV ONE (13:00)
[2021-05-23] MEDS: SODIUM CHLORIDE 0.9% 10ML FLUSH IV SCH (14:13)
[2021-05-23] MEDS: CETIRIZINE HCL 10 MG TABLET PO SCH (15:15)
[2021-05-23] MEDS: AZITHROMYCIN 500 MG in DEXTROSE 5% 250 ML IV SCH (15:27)
[2021-05-23] MEDS ORDERED: STAT IV Infusion **Titration per Protocol STA (18:09)
[2021-05-23] MEDS ORDERED: INSULIN REGULAR 250 UNITS in SODIUM CHLORIDE 0.9% 247.5 ML IV SCH (18:15)
[2021-05-23] MEDS ORDERED: INSULIN HUMAN REGULAR IV BOLUS 5 UNITS in SYRINGE 0 ML IV ONE (18:15)
[2021-05-23] MEDS: cefTRIAXone SODIUM 2,000 MG in DEXTROSE 5% 50 ML IV SCH (18:20)
[2021-05-23] MEDS: INSULIN GLARGINE SOLOSTAR 100 UNITS/ML 3 ML PEN SC SCH (20:37)
[2021-05-23] MEDS: BENZONATATE 100 MG CAPSULE PO SCH (20:49)
[2021-05-23] MEDS ORDERED: INSULIN ASPART 100 UNITS/ML 3 ML PEN SC SCH (21:00)
[2021-05-23] MEDS ORDERED: ALBUTEROL 0.5% NEB SOLN 2.5 MG/0.5 ML VIAL NEB PRN (23:19)
[2021-05-24] MEDS: INSULIN ASPART 100 UNITS/ML 3 ML PEN SC SCH ×5 (03:37→21:41)
[2021-05-24 06:37] LABS: Hemoglobin 12.8 g/dL (14.0-18.0); Mean Corpuscular Hemoglobin 27.8 pg (25-34); Mean Corpuscular Hgb Conc 33.7 g/dL (32-36); Mean Corpuscular Volume 82.4 fL (80-100); Mean Platelet Volume 11.1 fL (7.4-10.4); Platelet Count 196 K/uL (130-400); RDW Coefficient of Variation 13.6 % (11.5-14.5); RDW Standard Deviation 41.1 fL (36.4-46.3); Red Blood Count 4.61 M/uL (4.7-6.1); White Blood Count 4.78 K/uL (4.8-10.8)
[2021-05-24 07:01] LABS: Basophils # (auto) 0.01 K/uL (0-0.2); Basophils % (auto) 0.2 %; Immature Granulocytes # (auto) 0.05 K/uL (0.00-0.02); Lymphocytes # (auto) 0.84 K/uL (1.2-3.4); Lymphocytes % (auto) 17.6 %; Monocytes # (auto) 0.44 K/uL (0.11-0.59); Monocytes % (auto) 9.2 %; Neutrophils # (auto) 3.44 K/uL (1.4-6.5)
[2021-05-24 07:11] LABS: BUN Creatinine Ratio 22.5 (10-20); Calcium 7.9 mg/dl (8.5-10.1); Creatinine Clr Calc Pharmacy 107.5 ml/min; Est GFR (African American) 72.5 ml/min; Est GFR (Non-African American) 62.6 ml/min; Magnesium 2.1 mg/dl (1.8-2.4); Potassium 3.6 mmol/L (3.5-5.1)
[2021-05-24] MEDS: ALBUT/IPRATROP 3MG/0.5MG NEB 3 ML VIAL NEB SCH ×4 (07:34→19:44)
[2021-05-24] MEDS: dexAMETHasone 6 MG in SYRINGE 0 ML IV SCH (08:43)
[2021-05-24] MEDS: CETIRIZINE HCL 10 MG TABLET PO SCH (08:43)
[2021-05-24] MEDS: amLODIPine BESYLATE 5 MG TAB PO SCH (08:44)
[2021-05-24] MEDS: ASPIRIN 81 MG ECTAB PO SCH (08:44)
[2021-05-24] MEDS: guaiFENesin 600 MG TABCR PO SCH ×2 (08:44→21:52)
[2021-05-24] MEDS: ASCORBIC ACID 500 MG TAB PO SCH (08:45)
[2021-05-24] MEDS: BENZONATATE 100 MG CAPSULE PO SCH ×3 (08:45→21:51)
[2021-05-24] MEDS: ZINC SULFATE 220 MG CAPSULE PO SCH (08:45)
[2021-05-24] MEDS: ENOXAPARIN INJ 40 MG/0.4 ML SYR SQ SCH (08:46)
[2021-05-24] MEDS ORDERED: INSULIN GLARGINE SOLOSTAR 100 UNITS/ML 3 ML PEN SC SCH (09:00)
[2021-05-24] MEDS: INSULIN HUMAN NPH SC SCH (09:34)
[2021-05-24] MEDS: allopurinoL 100 MG TAB PO SCH (09:42)
[2021-05-24] MEDS ORDERED: FUROSEMIDE 40 MG in SYRINGE 0 ML IV ONE (11:15)
[2021-05-24] MEDS: REMDESIVIR 100mg: Days 2-5 IV SCH (11:59)
--- NOTE | 2021-05-24 12:03 | XRay Report ---
XR chest 1V portable CLINICAL HISTORY: worsening symptoms COMPARISON STUDY: Chest radiograph May 22, 2021. FINDINGS: Lung volumes are normal. There is no pneumothorax or pleural effusion. Cardiomegaly is agai n noted. Multifocal left lung airspace opacities have significantly progressed. IMPRESSION: Significant progression of left lung airspace opacities which favor multifocal pneumonia . ACT 112: Negative or not required by law. Electronically signed by: Gutierrez Richards M.D. 05/24/2021 12:01 PM
[2021-05-24 12:22] LABS: Base Excess ABG -0.4 mEq/L (-9-1.8); HCO3 ABG 22 mmol/L (19-24); Oxygen Saturation ABG 92.7 % (90-95); PCO2 ABG 32 mmHg (35-46); PO2 ABG 60 mmHg (80-95); pH ABG 7.47 (7.35-7.45)
[2021-05-24 12:30] LABS: C Reactive Protein 2.18 mg/dl (0-0.29)
--- NOTE | 2021-05-24 12:49 | Pharmacy Report ---
Pharmacy Glycemic Short Note 2 - Date of Service May 24, 2021 - Glycemic Short BSG Results (Last 24 hours): 05/23/21 05/23/21 05/23/21 12:36 17:32 20:22 Glucose POC Glucose 419 H* 457 H* 362 H* 05/23/21 05/23/21 05/23/21 20:24 21:17 21:18 Glucose POC Glucose 369 H* 329 H* 340 H* 05/23/21 05/23/21 05/24/21 22:22 23:13 00:22 Glucose POC Glucose 286 H 247 H 191 H 05/24/21 05/24/21 05/24/21 01:25 02:31 03:34 Glucose POC Glucose 134 H 98 78 05/24/21 05/24/21 05:46 08:05 Glucose 71 POC Glucose 91 OUTPATIENT ANTIDIABETIC REGIMEN: * Metformin 750 mg PO qPM * Glimepiride 2 mg PO qAM * Liraglutide 1.2 mg SC qAM * HbA1c: 10.2% (05/20/21) ASSESSMENT: 05/24/21: * Thien received 290 units of SQ insulin yesterday + insulin drip x ~10hours at about 6unit/hr * Fasting BSG 91mg/dl, increase basal and move all of it to AM administration in preparation for discharge home on basal * Continue once daily NPH for steroid induced hyperglycemia * will not increase NPH at this time, as already tightening NovoLog and increasing Lantus * Tighten CF and CR and continue overnight checks to prevent insulin drip 05/23/21: * Thien received 244 units of SQ insulin yesterday * 85 units basal * 159 units bolus * poor glycemic control d/t steroid induced hyperglycemia with A1c > 10% * Fasting BSG of 157 mg/dL. Continue Lantus. * Continue once daily NPH for steroid induced hyperglycemia - increase dose for elevated blood sugars all day yesterday * Tighten carb coverage and continue overnight checks 05/22/21: * Thien received 133 units of SQ insulin + 10 units regular IV insulin yesterday * 45 units basal * 88 units bolus * poor glycemic control d/t steroid induced hyperglycemia with A1c > 10% * Fasting BSG of 241 mg/dL. Will start Lantus 20 units BID (equivalent to weight/stress of 2 based on adjusted BW). * Continue once daily NPH for steroid induced hyperglycemia. Today will be patients first dose of NPH. * Tighten carb coverage and continue overnight checks Background: * TR is a 56 year old male admitted to [facility] on 05/20 with COVID-19 pneumonia * Ordered dexamethasone 6 mg IV daily * BSGs have been significantly elevated today, pharmacy consulted for glycemic management on 05/21 with HS BSG check of 410 mg/dL * Given nursing burden with insulin infusion in COVID patient, will start by adding IV insulin bolus, tightening Novolog with overnight checks, and increasing basal * Will order 0.4 unit/kg NPH with tomorrow's dose of dexamethasone PLAN FOR INPATIENT GLYCEMIC CONTROL: * Hold outpatient oral diabetes medications * Basal insulin * Increase: Lantus 60 units SQ Daily * NPH 55 units SC qAM with IV dexamethasone * Bolus insulin - tighten CF & CR * NovoLog per scale ACHS or Q6hrs while NPO and overnight at 0000 and 0400 * Goal Range: Low 110 mg/dL - High 140 mg/dL * Correction Factor: 5 mg/dL/unit * Nutritional / Prandial insulin per carb ratio of 1 unit per 1 grams CHO consumed PLAN FOR DISCHARGE: * HbA1c of 10.2% suggests very poor outpatient glycemic control * Patient will likely require insulin upon discharge - doses tbd
--- NOTE | 2021-05-24 13:13 | Hospitalist Progress Note ---
Date of Service May 24, 2021 Assessment & Plan (1) Pneumonia due to COVID-19 virus: Plan: - Patient initially with fever, hypoxemia, and mild tachypnea in addition to leukopenia and patchy opacities seen on chest x-ray. - Pulse ox has remained stable to 2-2.5 L of supplemental oxygen up until the overnight hours. Now requiring 6-7L (which is slightly concerning) but his sats are currently stable and he does not appear to be in any acute distress - will obtain a repeat CXR, BNP, CRP/ERS, and ABG - in addition, patient will need ruled out for a PE (will obtain a CTA of the chest) - Continue remdesivir through today (5 days total) - I did discuss this case with Dr. Torrez who also has evaluated this patient and agrees with the above. If CTA negative for PT, he suggests increasing decadron to 10mg daily - pharmacy on board to help with glycemic control-- appreciate this. - additional dose of lasix today given his increased O2 requirements - patient has been on empiric antibiotic therapy (Rocephin/azithromycin) for questionable bacterial coinfection; however procal WNL. course of abx therapy completes today. - Continue mucolytic agents, antitussives and nebulized treatments - staff incouraged to uptitrate oxygen (to high flow/vapotherm if needed) to maintain a pulse ox of >88%. Will initiate proning if needed - Zinc/vitamin C for immune support - APAP as needed for fever - cont incentive spirometry (2) Hypoxemia: Plan: * See above (3) Leukopenia: Plan: * Likely secondary to #1. Improved/resolved * continue to trend (4) CHI (acute kidney injury): Plan: * Metformin and losartan remain on hold * cr. at baseline * On Decadron and did receive 2 doses of Lasix (renal function slightly improved from baseline) * We will continue to monitor. (5) Hyperglycemia: Plan: * Lengthy discussion with patient regarding the importance of good glycemic control * A1c way above goal * At this time, continue to hold his Metformin. may consider resumption pending what renal status is like. * Lengthy discussion with patient regarding correlation between kidney disease and uncontrolled diabetes along with other sequela from uncontrolled diabetes mellitus * Plan is for long-term insulin therapy. pharmacy consulted by overnight provider for glycemic control (6) Uncontrolled type 2 diabetes mellitus: Plan: * See above (7) Stage 3b chronic kidney disease: Plan: * Continue to hold ARB/Metformin. May need to consider additional/other BP medication. (8) Hypertension: Plan: * Norvasc will be resumed (however if echo show EF <30%-- will need to change to something different) * BP currently controlled with discontinuation of losartan * May need to permanently discontinue losartan. (9) Hyperlipidemia: Plan: * Hold statin for now (10) Obesity: Plan: * likely has undiagnosed COLT-- need sleep study as an OP Plan: * Lovenox for DVT prophylaxis * prn Meds: MOM, Maalox, Zofran, APAP * Follow-up labs in a.m. to trend * Plan of care has been D/W Dr. Torrez Admission and Anticipated Discharge Date Admission Date: May 20, 2021 Subjective Patient seen on daily rounds today. Up until this point, he has maintained a pulse ox in the low 90's on only 2-2.5L supplemental O2. He did require 8L oxymask the night before last only while sleeping (he is a mouth breathing and was snoring). When awake, he was transitioned back to 2L and his pulse ox, again, was in the low-mid 90's. He is thought to has Obesity hypoventilation syndrome/COLT (undiagnosed) This morning, he is now on 6-7L wall NC to maintain an O2 sat of 91-92 (was turned up around 3AM). With ANY exertion (like eating or even turning in bed)-- his pulse ox drops to 84% but be rebounds. Despite the above, he claims that he doesn't feel SOB or winded. Yesterday, was c/o increase cough which was coughing breathlessness. Now on Routine neb treatments and tessalon perles. Cough improved but still present. Again, denies SOB but nurse reports that patient is getting easily winded. He denies F/C, CP, orthopnea, PND, abd pain, N/V, GI/ symptoms Note: patient has been having hyperglycemia. Started on Lantus/log in addition to NPH to cover the am decadron. BS into the 400's yesteday. Required an insulin gtt yesterday and into the overnight hours. Stopped around 3AM. FBS today=71 Review of Systems Review of Systems: All systems reviewed and are unremarkable except as noted in HPI and below Denies fevers, chills, headache, nasal congestion, sore throat, cough, chest pain, shortness of breath, abdominal pain, nausea, vomiting, dysuria, hematuria, frequency, skin lesions or rashes. Physical Exam Physical Exam: General: Does not appear to be in any acute distress but is requiring 6-7L supplemental O2. Does have conversational dyspnea and seems winded with very limited exertion (like rolling in the bed). Pulse ox noted to drop to 84% with conversing and rolling but he quickly recovers Neck: No JVD. Negative hepatojugular reflex Cardiac: RRR without M/G/R Lungs:see above.actually has improved air exchange throughout with end expiratory wheezes Abdomen: Normoactive X4. Soft and nontender in all quadrants. Extremities: No peripheral clubbing cyanosis or edema Neuro: A&O X4 cranial nerves II through XII are grossly intact no focal neuro deficits Skin: No obvious skin lesions or rashes Results & Data Results & Data ([facility]) Vital Signs (Past 12 Hours) Vital Signs Temp Pulse Resp BP Pulse Ox 05/24/21 11:17 84 20 92 05/24/21 09:49 85 91 05/24/21 07:59 36.7 C 82 20 120/76 90 05/24/21 07:37 74 18 90 Laboratory Results 05/24/21 05:46 05/24/21 05:46 Ma.1 Creatinine: 1.77 ([id number] IV x1) --> 2.01 --> 1.75 (lasix 40mg IV x1) --> 1.28 PG Care Time/CCT Total # of Minutes Spent Total Time Spent with Patient: Total time spent is greater than 50% in coordination of care (as documented) at patient's floor/unit and/or counseling patient: Coding [place] [address] Subseq Hosp Care Lvl 3 Patient Type Established History Comprehensive Exam Comprehensive Medical Decision Making High Complexity Diagnoses Pneumonia due to COVID-19 virus U07.1; J12.82 Hypoxemia R09.02 Leukopenia D72.819 Leukopenia type: unspecified CHI (acute kidney injury) N17.9 Hyperglycemia R73.9 Uncontrolled type 2 diabetes mellitus E11.65 Stage 3b chronic kidney disease N18.3 Hypertension I10 Hyperlipidemia E78.5 Obesity E66.9 (1) Leukopenia Leukopenia type: unspecified Qualified Code(s): D72.819 - Decreased white blood cell count, unspecified
[2021-05-24] MEDS: SODIUM CHLORIDE 0.9% 10ML FLUSH IV SCH (13:14)
[2021-05-24 13:45] LABS: Allen Test Pos (Pos)
[2021-05-24] MEDS ORDERED: INSULIN HUMAN NPH SC ONE (15:30)
[2021-05-24] MEDS ORDERED: dexAMETHasone 6 MG in SYRINGE 0 ML IV ONE (15:30)
[2021-05-24] MEDS: ENOXAPARIN 150 MG/ML SYR SQ SCH (15:46)
[2021-05-25] MEDS: ENOXAPARIN 150 MG/ML SYR SQ SCH (03:25)
[2021-05-25] MEDS: ALBUT/IPRATROP 3MG/0.5MG NEB 3 ML VIAL NEB SCH ×4 (07:03→19:24)
[2021-05-25 07:27] LABS: Basophils # (auto) 0.01 K/uL (0-0.2); Basophils % (auto) 0.2 %; Hematocrit (blood only) 37.7 % (42-52); Hemoglobin 12.4 g/dL (14.0-18.0); Immature Granulocytes # (auto) 0.07 K/uL (0.00-0.02); Immature Granulocytes % (auto) 1.5 %; Lymphocytes # (auto) 0.55 K/uL (1.2-3.4); Lymphocytes % (auto) 11.7 %; Mean Corpuscular Hgb Conc 32.9 g/dL (32-36); Mean Platelet Volume 10.8 fL (7.4-10.4); Monocytes # (auto) 0.42 K/uL (0.11-0.59); Monocytes % (auto) 8.9 %; Neutrophils # (auto) 3.65 K/uL (1.4-6.5); Neutrophils % (auto) 77.7 %; Platelet Count 204 K/uL (130-400); RDW Coefficient of Variation 13.8 % (11.5-14.5); RDW Standard Deviation 41.4 fL (36.4-46.3)
[2021-05-25 07:59] LABS: Albumin Level 2.7 gm/dl (3.4-5.0); BUN Creatinine Ratio 22.9 (10-20); Calcium 8.3 mg/dl (8.5-10.1); Creatinine Clr Calc Pharmacy 101.1 ml/min; Est GFR (African American) 71.2 ml/min; Est GFR (Non-African American) 61.4 ml/min; Potassium 3.8 mmol/L (3.5-5.1)
[2021-05-25 08:02] LABS: Albumin Globulin Ratio 0.7 (0.9-2); Bilirubin,Total 0.4 mg/dl (0.2-1); Globulin 3.9 gm/dl (2.5-4.0); Total Protein 6.6 gm/dl (6.4-8.2)
[2021-05-25] MEDS: guaiFENesin 600 MG TABCR PO SCH ×2 (08:40→21:20)
[2021-05-25] MEDS: dexAMETHasone 10 MG in SYRINGE 0 ML IV SCH (08:40)
[2021-05-25] MEDS: INSULIN ASPART 100 UNITS/ML 3 ML PEN SC SCH ×4 (08:41→21:01)
[2021-05-25] MEDS ORDERED: INSULIN GLARGINE SOLOSTAR 100 UNITS/ML 3 ML PEN SC SCH (09:00)
[2021-05-25] MEDS ORDERED: INSULIN HUMAN NPH SC SCH (09:00)
[2021-05-25] MEDS: ASPIRIN 81 MG ECTAB PO SCH (09:02)
[2021-05-25] MEDS: ASCORBIC ACID 500 MG TAB PO SCH (09:02)
[2021-05-25] MEDS: BENZONATATE 100 MG CAPSULE PO SCH ×3 (09:02→21:20)
[2021-05-25] MEDS: allopurinoL 100 MG TAB PO SCH (09:02)
[2021-05-25] MEDS: ZINC SULFATE 220 MG CAPSULE PO SCH (09:02)
[2021-05-25] MEDS: amLODIPine BESYLATE 5 MG TAB PO SCH (09:02)
[2021-05-25] MEDS ORDERED: FUROSEMIDE 40 MG in SYRINGE 0 ML IV ONE (09:15)
[2021-05-25] MEDS ORDERED: OPTIRAY 320 125ml IV ONE (12:58)
--- NOTE | 2021-05-25 14:13 | Pharmacy Report ---
Pharmacy Glycemic Short Note 2 - Date of Service May 25, 2021 - Glycemic Short BSG Results (Last 24 hours): 05/24/21 05/24/21 05/25/21 15:37 20:31 07:07 Glucose 154 H POC Glucose 189 H 216 H 05/25/21 05/25/21 08:06 12:01 Glucose POC Glucose 163 H 204 H OUTPATIENT ANTIDIABETIC REGIMEN: * Metformin 750 mg PO qPM * Glimepiride 2 mg PO qAM * Liraglutide 1.2 mg SC qAM * HbA1c: 10.2% (05/20/21) ASSESSMENT: 05/25/21: * Thien received a total of 311 units of insulin yesterday * 140 units basal + 171 units bolus * BSGs were improved but still above goal: [id number] mg/dL * Fasting BSG was 163 mg/dL this AM - above goal * Increased basal regimen to match total daily basal dose from yesterday as patient's BSGs were improved * No change to Novolog * Started on Dexamethasone 10 mg IV daily this AM 05/24/21: * Thien received 290 units of SQ insulin yesterday + insulin drip x ~10hours at about 6unit/hr * Fasting BSG 91mg/dl, increase basal and move all of it to AM administration in preparation for discharge home on basal * Continue once daily NPH for steroid induced hyperglycemia * will not increase NPH at this time, as already tightening NovoLog and increasing Lantus * Tighten CF and CR and continue overnight checks to prevent insulin drip 05/23/21: * Thien received 244 units of SQ insulin yesterday * 85 units basal * 159 units bolus * poor glycemic control d/t steroid induced hyperglycemia with A1c > 10% * Fasting BSG of 157 mg/dL. Continue Lantus. * Continue once daily NPH for steroid induced hyperglycemia - increase dose for elevated blood sugars all day yesterday * Tighten carb coverage and continue overnight checks 05/22/21: * Thien received 133 units of SQ insulin + 10 units regular IV insulin yesterday * 45 units basal * 88 units bolus * poor glycemic control d/t steroid induced hyperglycemia with A1c > 10% * Fasting BSG of 241 mg/dL. Will start Lantus 20 units BID (equivalent to weight/stress of 2 based on adjusted BW). * Continue once daily NPH for steroid induced hyperglycemia. Today will be patients first dose of NPH. * Tighten carb coverage and continue overnight checks Background: * TR is a 56 year old male admitted to [facility] on 05/20 with COVID-19 pneumonia * Ordered dexamethasone 6 mg IV daily * BSGs have been significantly elevated today, pharmacy consulted for glycemic management on 05/21 with HS BSG check of 410 mg/dL * Given nursing burden with insulin infusion in COVID patient, will start by adding IV insulin bolus, tightening Novolog with overnight checks, and increasing basal * Will order 0.4 unit/kg NPH with tomorrow's dose of dexamethasone PLAN FOR INPATIENT GLYCEMIC CONTROL: * Hold outpatient oral diabetes medications * Basal insulin - increased * Lantus 70 units SQ Daily * NPH 70 units SC qAM with IV dexamethasone - hold if dexamethasone held/discontinued * Bolus insulin * NovoLog per scale ACHS or Q6hrs while NPO and overnight at 0000 and 0400 * Goal Range: Low 110 mg/dL - High 140 mg/dL * Correction Factor: 5 mg/dL/unit * Nutritional / Prandial insulin per carb ratio of 1 unit per 1 grams CHO consumed PLAN FOR DISCHARGE: * HbA1c of 10.2% suggests very poor outpatient glycemic control * Patient will likely require insulin upon discharge - doses tbd
--- NOTE | 2021-05-25 14:23 | CT Scan Report ---
CT ANGIOGRAM OF THE CHEST CLINICAL HISTORY: r/o PE COMPARISON STUDY: No previous studies for comparison. TECHNIQUE: Following the IV administration of 120 mL of Optiray, CT angiogram of the thorax was perfo rmed from the thoracic inlet to the lung bases utilizing the pulmonary embolus protocol. Images are r eviewed in the axial, sagittal, and coronal planes. IV contrast was administered without complication . MIP imaging was performed. A dose lowering technique was utilized adhering to the principles of [place] POOJA. CT DOSE: 556.01 mGycm FINDINGS: Evaluation is significantly limited due to patient body habitus, motion and beam hardening artifact. Opacification within main pulmonary artery is suboptimal for adequate evaluation for pulmonary embolu s. Significant motion artifact further degrades image quality and evaluation of peripheral branches o f the pulmonary artery. No definite acute pulmonary embolus is seen. Main pulmonary artery is within upper limits of normal. No right heart strain seen. No definite axillary, supra clavicle or internal mammary lymphadenopathy seen. Multiple mediastinal lymph nodes are seen which is difficult to evaluate due to beam hardening and mo tion artifact. Largest is probably measuring 0.97 cm in short short axis. Prominent epicardial fat pa d is seen. There was no evidence of thoracic aortic dilatation. Tracheobronchial tree is patent. Multifocal consolidative and possible groundglass opacities are seen throughout bilateral lungs, pred ominantly in peripheral distribution. No pleural effusions are visualized. Limited evaluation of upper abdominal viscera shows no evidence of acute abnormalities. Osseous structures: Multilevel degenerative changes of the spine. IMPRESSION: No definite central pulmonary embolus is seen. Limited exam due to in suboptimal opacification within main pulmonary artery, significant motion and beam hardening artifact. Multifocal airspace opacities throughout bilateral lungs which could represent atypical pneumonia/Cov id. Report will be sent to emergency Department. The rest of findings as above. ACT 112: Negative or not required by law. The above report was generated using voice recognition software. It may contain grammatical, syntax o r spelling errors. Electronically signed by: Peggy Peters DO 05/25/2021 2:22 PM
[2021-05-25] MEDS: ENOXAPARIN 80 MG/0.8 ML SYR SQ SCH (15:32)
--- NOTE | 2021-05-25 17:22 | Hospitalist Progress Note ---
Date of Service May 25, 2021 Assessment & Plan (1) Pneumonia due to COVID-19 virus: Plan: - Patient initially with fever, hypoxemia, and mild tachypnea in addition to leukopenia and patchy opacities seen on chest x-ray. - Pulse ox remained stable to 2-2.5 L of supplemental oxygen the first 5 days of hospitalization - on hospital day #6 (day 9-10 of symptom onset), his respiratory status started to decline every so slightly and he was requiring up to 10L highflow - He had been treated with multiple doses of IV lasix throughout the course of the first 5 day - An addition dose given yesterday along with treatment dose lovenox until a CTA could be done to R/O a PE - in addition, inflammatory markers obtained (ESR/CRP= 53 and 2.18 respectively) - Patient was given an additional dose of IV Decadron and subsequent doses increased to 10 mg - pharmacy on board to help with glycemic control-- appreciate this. - Patient livid about his carb consistent diet. Reassurance given -Patient was on empiric Rocephin/azithromycin for possible secondary bacterial infection. These have since been completed- and stopped -Patient has completed a full course of remdesivir - Continue mucolytic agents, antitussives and nebulized treatments - Titrate oxygen to maintain a pulse ox of >88%. -Proning encourage; however, patient not able given his weight and back pain. S vaibhav-lying encouraged when sleeping and out of bed to chair to help aerate the lungs - Zinc/vitamin C for immune support - APAP as needed for fever - cont incentive spirometry Echocardiogram showed EF of 60 to 65%. No significant valvular disease. Mild RV dilation -Highly suspect obesity hypoventilation syndrome/COLT. Will need sleep apnea testing as an outpatient. Intolerant to trial of BiPAP while in house (2) Hypoxemia: Plan: * See above (3) Leukopenia: Plan: * Likely secondary to #1. Improved/resolved * continue to trend (4) CHI (acute kidney injury): Plan: * Metformin and losartan remain on hold * cr. Overall improved * On Decadron and multiple doses of IV Lasix (renal function slightly improved from baseline) * will continue to monitor. (5) Hyperglycemia: Plan: * Lengthy discussion with patient regarding the importance of good glycemic control * A1c way above goal * At this time, continue to hold his Metformin. may consider resumption pending what renal status is like. * Lengthy discussion with patient regarding correlation between kidney disease and uncontrolled diabetes along with other sequela from uncontrolled diabetes mellitus * Plan is for long-term insulin therapy. pharmacy consulted by overnight provider for glycemic control (6) Uncontrolled type 2 diabetes mellitus: Plan: * See above (7) Stage 3b chronic kidney disease: Plan: * Continue to hold ARB/Metformin. May need to consider additional/other BP medication. (8) Hypertension: Plan: * Norvasc will be resumed * BP currently controlled with discontinuation of losartan * May need to permanently discontinue losartan. (9) Hyperlipidemia: Plan: * Hold statin for now (10) Obesity: Plan: * likely has undiagnosed COLT-- need sleep study as an OP Plan: * Lovenox for DVT prophylaxis * prn Meds: MOM, Maalox, Zofran, APAP * Follow-up labs in a.m. to trend * Plan of care has been D/W Dr. Torrez Admission and Anticipated Discharge Date Admission Date: May 20, 2021 Subjective Patient seen on daily rounds today. Overall stable with subtle improvements. Was transitioned up to 10 L last evening to maintain a pulse ox in the low 90s. Attempted BiPAP last night (for presumed obesity hypoventilation syndrome/COLT) but patient intolerant. Kept on supplemental oxygen and has since been slowly down titrated to 6 L. Is currently 92% on 6 L. Given his need for high flow oxygen last evening, he was placed on treatment dose Lovenox empirically as it was felt best he not be moved to the radiology de partment for a CTA. CTA subsequently done today and negative for PE. Patient has seemed to respond to multiple doses of IV Lasix over the past several days. Renal function is actually improved Overall, patient feels well. He denies fevers, chills, chest pain, shortness of breath, orthopnea, PND, abdominal pain, nausea or vomiting. He does get winded when ambulating to the bathroom but is no longer desaturating now that he is compliant with keeping his supplemental oxygen on when doing so. Nursing staff vocalizes that he seems to be greatly improved today as he is not nearly as dyspneic with limited exertion. Review of Systems Review of Systems: All systems reviewed and are unremarkable except as noted in HPI and below Denies fevers, chills, headache, nasal congestion, sore throat, cough, chest pain, shortness of breath, abdominal pain, nausea, vomiting, dysuria, hematuria, frequency, skin lesions or rashes. Physical Exam Physical Exam: General: Resting comfortably in his hospital bed. Sig nificantly improved compared to yesterday as he is not having conversational dyspnea as the day prior. NAD. Neck: No JVD. Negative hepatojugular reflex Cardiac: RRR without M/G/R Lungs: Speaking full sentences on supplemental oxygen. Breathing nonlabored. No distress. Good air exchange throughout with end expiratory wheezes predominantly in the bases. Still with positive egophony bilaterally Abdomen: Normoactive X4. Soft and nontender in all quadrants. Extremities: No peripheral clubbing cyanosis or edema Neuro: A&O X4 cranial nerves II through XII are grossly intact no focal neuro deficits Skin: No obvious skin lesions or rashes Results & Data Results & Data ([facility]) Vital Signs (Past 12 Hours) Vital Signs Temp Pulse Pulse Resp BP Pulse Ox 05/25/21 15:31 36.4 C L 77 18 132/76 92 05/25/21 15:20 80 20 90 05/25/21 14:19 83 05/25/21 12:10 36.7 C 82 18 114/73 93 05/25/21 07:19 36.8 C 73 18 116/66 91 05/25/21 07:15 73 05/25/21 07:03 88 22 90 Laboratory Results 05/25/21 07:07 05/25/21 07:07 Diagnostic Findings CTA: IMPRESSION: No definite central pulmonary embolus is seen. Limited exam due to in suboptimal opacification within main pulmonary artery, significant motion and beam hardening artifact. Multifocal airspace opacities throughout bilateral lungs which could represent atypical pneumonia/Covid. Report will be sent to emergency Department. The rest of findings as above. PG Care Time/CCT Total # of Minutes Spent Total Time Spent with Patient: Total time spent is greater than 50% in coordination of care (as documented) at patient's floor/unit and/or counseling patient: C[place] [address] Subseq Hosp Care Lvl 3 Patient Type Established History Detailed Exam Detailed Medical Decision Making Moderate Complexity Diagnoses Pneumonia due to COVID-19 virus U07.1; J12.82 Hypoxemia R09.02 Leukopenia D72.819 Leukopenia type: unspecified CHI (acute kidney injury) N17.9 Hyperglycemia R73.9 Uncontrolled type 2 diabetes mellitus E11.65 Stage 3b chronic kidney disease N18.3 Hypertension I10 Hyperlipidemia E78.5 Obesity E66.9 Time Spent (min) 60 (1) Leukopenia Leukopenia type: unspecified Qualified Code(s): D72.819 - Decreased white blood cell count, unspecified
[2021-05-25] MEDS ORDERED: PSEUDOEPHEDRINE HCL 30 MG TAB PO ONE (22:30)
[2021-05-25] MEDS ORDERED: SODIUM CHLORIDE 0.65% NA SOLN 45 ML (OCEAN) ONE (22:46)
[2021-05-26 06:31] LABS: Basophils # (auto) 0.01 K/uL (0-0.2); Basophils % (auto) 0.2 %; Hematocrit (blood only) 38.8 % (42-52); Hemoglobin 12.7 g/dL (14.0-18.0); Immature Granulocytes # (auto) 0.25 K/uL (0.00-0.02); Immature Granulocytes % (auto) 3.8 %; Lymphocytes # (auto) 0.73 K/uL (1.2-3.4); Lymphocytes % (auto) 11.1 %; Mean Corpuscular Hemoglobin 27.3 pg (25-34); Mean Corpuscular Hgb Conc 32.7 g/dL (32-36); Mean Corpuscular Volume 83.3 fL (80-100); Mean Platelet Volume 10.9 fL (7.4-10.4); Monocytes # (auto) 0.56 K/uL (0.11-0.59); Monocytes % (auto) 8.5 %; Neutrophils # (auto) 5.04 K/uL (1.4-6.5); Neutrophils % (auto) 76.4 %; Platelet Count 254 K/uL (130-400); RDW Coefficient of Variation 14.1 % (11.5-14.5); RDW Standard Deviation 42.5 fL (36.4-46.3); Red Blood Count 4.66 M/uL (4.7-6.1); White Blood Count 6.59 K/uL (4.8-10.8)
[2021-05-26 07:08] LABS: Albumin Level 2.7 gm/dl (3.4-5.0); BUN Creatinine Ratio 23.8 (10-20); C Reactive Protein 3.09 mg/dl (0-0.29); Calcium 8.4 mg/dl (8.5-10.1); Est GFR (African American) 61.9 ml/min; Est GFR (Non-African American) 53.4 ml/min; Potassium 3.6 mmol/L (3.5-5.1)
[2021-05-26 07:10] LABS: Albumin Globulin Ratio 0.7 (0.9-2); Bilirubin,Total 0.4 mg/dl (0.2-1); Total Protein 6.7 gm/dl (6.4-8.2)
[2021-05-26] MEDS: ALBUT/IPRATROP 3MG/0.5MG NEB 3 ML VIAL NEB SCH ×4 (07:52→19:40)
[2021-05-26] MEDS ORDERED: FUROSEMIDE 20 MG in SYRINGE 0 ML IV ONE (08:00)
[2021-05-26] MEDS: amLODIPine BESYLATE 5 MG TAB PO SCH (08:41)
[2021-05-26] MEDS: allopurinoL 100 MG TAB PO SCH (08:41)
[2021-05-26] MEDS: guaiFENesin 600 MG TABCR PO SCH ×2 (08:41→20:03)
[2021-05-26] MEDS: ASPIRIN 81 MG ECTAB PO SCH (08:41)
[2021-05-26] MEDS: ZINC SULFATE 220 MG CAPSULE PO SCH (08:42)
[2021-05-26] MEDS: ASCORBIC ACID 500 MG TAB PO SCH (08:42)
[2021-05-26] MEDS: INSULIN GLARGINE 100 UNIT/ML VIAL SC SCH (08:44)
[2021-05-26] MEDS: INSULIN ASPART 100 UNITS/ML 3 ML PEN SC SCH ×4 (08:46→20:12)
[2021-05-26] MEDS ORDERED: INSULIN GLARGINE 100 UNIT/ML VIAL SC SCH (09:00)
[2021-05-26] MEDS ORDERED: INSULIN HUMAN NPH SC SCH (09:00)
[2021-05-26] MEDS: BENZONATATE 100 MG CAPSULE PO SCH ×3 (09:46→20:03)
[2021-05-26] MEDS: dexAMETHasone 10 MG in SYRINGE 0 ML IV SCH (10:23)
[2021-05-26] MEDS ORDERED: LINEZOLID CONSULT ACTIVE PRN (12:59)
[2021-05-26] MEDS ORDERED: LINEZOLID 600 MG/300 ML D5W IV SCH (13:00)
--- NOTE | 2021-05-26 13:04 | Hospitalist Progress Note ---
Date of Service May 26, 2021 Assessment & Plan (1) Pneumonia due to COVID-19 virus: Plan: - Patient initially with fever, hypoxemia, and mild tachypnea in addition to leukopenia and patchy opacities seen on chest x-ray. - Pulse ox had remained stable on 2-2.5 L of supplemental oxygen the first 5 days of hospitalization - on hospital day #6 (day 9-10 of symptom onset), his respiratory status started to decline and he was requiring up to 10L highflow to maintain a pulse ox in the low 90's and with very little exertion (such as rolling), he would desaturate to 84% but rebound quickly - He has been treated with multiple doses of IV lasix throughout the course of this hospital stay and seems to be responding favorably to this - In addition, he was initially on lovenox for prophylaxis but with decline is his resporatory status, this was changed empirically to treatment dose until stable enough to have CTA - CTA performed showing no obvious PE and multifocal airspace disease consistent with atypical PNA - patient was empirically on abx therapy (rocephin/azithromycin) and has since completed a full course - no reason to believe that he could have MRSA PNA (likely all related to covid); however, given his stagnant response and the fact that he is fully vaccinated and requiring as much supplemental O2 that he is-- will add doxycycline. This may be overaggressive but would provide adequate atypical and MRSA coverage. Would hate to NOT have empirical abx therapy if his decline is from secondary bacterial PNA (which again, is likely related to covid and his habitus) but a 7 days course of Doxycycline certainly would harm his at this time - in addition, his inflammatory markers are upending slightly - Sputum culture is showing only normal alex - blood cultures (1/4 tubes) growing CoNS- likely skin contaminant - patient on decadron 10mg (increased from 6 given respiratory decline) - pharmacy on board to help with glycemic control-- appreciate this. - Patient livid about his carb consistent diet. Reassurance given -Patient has completed a full course of remdesivir - Continue mucolytic agents, antitussives and nebulized treatments - add robitussin AC at night given increased cough causing breathlessness - Titrate oxygen to maintain a pulse ox of >88%. - Proning encouraged; however, patient not able given his weight and back pain. Side-lying encouraged when sleeping and out of bed to chair to help aerate the lungs - Zinc/vitamin C for immune support - APAP as needed for fever - cont incentive spirometry Echocardiogram showed EF of 60 to 65%. No significant valvular disease. Mild RV dilation -Highly suspect obesity hypoventilation syndrome/COLT. Will need sleep apnea testing as an outpatient. Intolerant to trial of BiPAP while in house (2) Hypoxemia: Plan: * See above (3) Leukopenia: Plan: * Likely secondary to #1. Improved/resolved * continue to trend (4) CHI (acute kidney injury): Plan: * Metformin and losartan remain on hold * cr. Overall improved * On Decadron and multiple doses of IV Lasix (renal function slightly improved from baseline) * will continue to monitor. (5) Hyperglycemia: Plan: * Lengthy discussion with patient regarding the importance of good glycemic control * A1c way above goal * At this time, continue to hold his Metformin. may consider resumption pending what renal status is like. * Lengthy discussion with patient regarding correlation between kidney disease and uncontrolled diabetes along with other sequela from uncontrolled diabetes mellitus * Plan is for long-term insulin therapy. pharmacy consulted by overnight provider for glycemic control (6) Uncontrolled type 2 diabetes mellitus: Plan: * See above (7) Stage 3b chronic kidney disease: Plan: * Continue to hold ARB/Metformin. May need to consider additional/other BP medication. (8) Hypertension: Plan: * Norvasc resumed and BP controlled * BP currently controlled with discontinuation of losartan * May need to permanently discontinue losartan. (9) Hyperlipidemia: Plan: * Hold statin for now (10) Obesity: Plan: * likely has undiagnosed COLT-- need sleep study as an OP Plan: * Lovenox for DVT prophylaxis * prn Meds: MOM, Maalox, Zofran, APAP * Follow-up labs in a.m. to trend * Plan of care has been D/W Dr. Torrez Admission and Anticipated Discharge Date Admission Date: May 20, 2021 Subjective Patient seen on daily rounds today. Overall, remaining stable. Still requiring anywhere between 6-8L of supplemental O2 to keep his pulse ox in the low 90's. No better but not significantly worse. Has been responding to daily lasix. Bipap ordered for at bedtime as patient likely with obesity hypoventilation syn drome/COLT (undiagnosed) however he has been intolerant. Needing higher flow 8- 10L when sleeping. Is not tolerant to proning position. Has been comfortable side-lying. He feels well at rest. Able to eat without getting winded. Still getting dyspneic with exertion (toileting) but recovers quickly. still with significantly cough (that gets worse at night) and is causing breathlessness. Patient starting to loose it mentally. Feeling isolated. Missing his family. Has been facetiming. Getting bored and missing the outdoors. Denies F/C, CP, abd pain, N/V, GI/ symptoms Review of Systems Review of Systems: All systems reviewed and are unremarkable except as noted in HPI and below Denies fevers, chills, headache, nasal congestion, sore throat, cough, chest pain, abdominal pain, nausea, vomiting, dysuria, hematuria, frequency, skin lesions or rashes. Physical Exam Physical Exam: General: Resting comfortably in his hospital bed. Breathing comfortably at rest. Neck: No JVD. Negative hepatojugular reflex Cardiac: RRR without M/G/R Lungs: Persistent cough noted. loose by TECHNICAL SERVICE REPRESENTATIVE. Still with positive egophony in the bases bilaterally (L>R). No W/R Abdomen: Normoactive X4. Soft and nontender in all quadrants. Extremities: No peripheral clubbing cyanosis or edema Neuro: A&O X4 cranial nerves II through XII are grossly intact no focal neuro deficits Skin: No obvious skin lesions or rashes Psych: pt appears discouraged today. He is easily agitated Results & Data Results & Data ([facility]) Vital Signs (Past 12 Hours) Vital Signs Temp Pulse Pulse Resp BP Pulse Ox 05/26/21 11:39 83 18 94 05/26/21 11:16 36.4 C L 86 16 128/75 93 05/26/21 07:52 77 18 91 05/26/21 07:27 36.5 C 70 18 127/80 90 05/26/21 03:39 36.5 C 64 20 102/65 90 05/26/21 01:22 79 Laboratory Results 05/26/21 06:13 05/26/21 06:13 CRP slightly uptrending 2.18 --> 3.09 today ESR uptrending Diagnostic Findings no xray today but reviewed trending films and there has been progression in his infiltrates. CTA done yesterday showing no evidence of PE but multifocal infiltrates consistent with atypical PNA PG Care Time/CCT Total # of Minutes Spent Total Time Spent with Patient: Total time spent is greater than 50% in coordination of care (as documented) at patient's floor/unit and/or counseling patient: [place] [address] Subseq Hosp Care Lvl 2 Patient Type Established History Expanded Problem Focused Exam Expanded Problem Focused Medical Decision Making Moderate Complexity Diagnoses Pneumonia due to COVID-19 virus U07.1; J12.82 Hypoxemia R09.02 Leukopenia D72.819 Leukopenia type: unspecified CHI (acute kidney injury) N17.9 Hyperglycemia R73.9 Uncontrolled type 2 diabetes mellitus E11.65 Stage 3b chronic kidney disease N18.3 Hypertension I10 Hyperlipidemia E78.5 Obesity E66.9 (1) Leukopenia Leukopenia type: unspecified Qualified Code(s): D72.819 - Decreased white blood cell count, unspecified
[2021-05-26] MEDS: DOXYCYCLINE HYCLATE 100 MG in DEXTROSE 5% 100 ML IV SCH ×2 (13:41→20:00)
[2021-05-26] MEDS: ENOXAPARIN 80 MG/0.8 ML SYR SQ SCH (14:48)
[2021-05-27 06:21] LABS: Hematocrit (blood only) 38.3 % (42-52); Hemoglobin 12.4 g/dL (14.0-18.0); Mean Corpuscular Hemoglobin 26.8 pg (25-34); Mean Corpuscular Hgb Conc 32.4 g/dL (32-36); Mean Corpuscular Volume 82.7 fL (80-100); Mean Platelet Volume 10.4 fL (7.4-10.4); Platelet Count 280 K/uL (130-400); RDW Coefficient of Variation 14.2 % (11.5-14.5); RDW Standard Deviation 42.8 fL (36.4-46.3); Red Blood Count 4.63 M/uL (4.7-6.1); White Blood Count 6.27 K/uL (4.8-10.8)
[2021-05-27 06:40] LABS: Basophils # (auto) 0.01 K/uL (0-0.2); Basophils % (auto) 0.2 %; Immature Granulocytes # (auto) 0.34 K/uL (0.00-0.02); Immature Granulocytes % (auto) 5.4 %; Lymphocytes # (auto) 0.85 K/uL (1.2-3.4); Lymphocytes % (auto) 13.6 %; Monocytes # (auto) 0.61 K/uL (0.11-0.59); Monocytes % (auto) 9.7 %; Neutrophils # (auto) 4.46 K/uL (1.4-6.5); Neutrophils % (auto) 71.1 %
[2021-05-27 06:48] LABS: Albumin Level 2.6 gm/dl (3.4-5.0); BUN Creatinine Ratio 29.2 (10-20); Calcium 8.1 mg/dl (8.5-10.1); Creatinine Clr Calc Pharmacy 103.9 ml/min; Est GFR (African American) 73.9 ml/min; Est GFR (Non-African American) 63.8 ml/min
[2021-05-27 06:51] LABS: Albumin Globulin Ratio 0.7 (0.9-2); Bilirubin,Total 0.4 mg/dl (0.2-1); Total Protein 6.6 gm/dl (6.4-8.2)
[2021-05-27] MEDS: ALBUT/IPRATROP 3MG/0.5MG NEB 3 ML VIAL NEB SCH ×4 (07:23→20:15)
[2021-05-27] MEDS: INSULIN GLARGINE 100 UNIT/ML VIAL SC SCH (09:14)
[2021-05-27] MEDS: INSULIN HUMAN NPH SC SCH (09:17)
[2021-05-27] MEDS: FUROSEMIDE 20 MG TAB PO SCH (09:38)
[2021-05-27] MEDS: ASCORBIC ACID 500 MG TAB PO SCH (09:38)
[2021-05-27] MEDS: amLODIPine BESYLATE 5 MG TAB PO SCH (09:38)
[2021-05-27] MEDS: ZINC SULFATE 220 MG CAPSULE PO SCH (09:38)
[2021-05-27] MEDS: allopurinoL 100 MG TAB PO SCH (09:38)
[2021-05-27] MEDS: ASPIRIN 81 MG ECTAB PO SCH (09:38)
[2021-05-27] MEDS: DOXYCYCLINE HYCLATE 100 MG in DEXTROSE 5% 100 ML IV SCH ×2 (09:39→20:50)
[2021-05-27] MEDS: BENZONATATE 100 MG CAPSULE PO SCH ×3 (09:39→20:29)
[2021-05-27] MEDS: guaiFENesin 600 MG TABCR PO SCH ×2 (09:39→20:30)
[2021-05-27] MEDS: INSULIN ASPART 100 UNITS/ML 3 ML PEN SC SCH ×2 (09:54→11:51)
--- NOTE | 2021-05-27 10:25 | Pharmacy Report ---
Pharmacy Glycemic Short Note 2 - Date of Service May 27, 2021 - Glycemic Short BSG Results (Last 24 hours): 05/26/21 05/26/21 05/26/21 11:51 16:08 19:57 Glucose POC Glucose 264 H 280 H 216 H 05/27/21 05/27/21 05:42 07:55 Glucose 126 H POC Glucose 160 H OUTPATIENT ANTIDIABETIC REGIMEN: * Metformin 750 mg PO qPM * Glimepiride 2 mg PO qAM * Liraglutide 1.2 mg SC qAM * HbA1c: 10.2% (05/20/21) ASSESSMENT: 05/26/21 * Pt has received 429 units of insulin over the past 24hrs * 80 units of basal with Lantus * 80 units of NPH for steroid induced hyperglycemia * 269 units of bolus with NovoLog * BSGs [phone] mg/dl * AM fasting BSG near goal range at 160 mg/dl Lantus continues to be aggressively titrated upwards daily. AM fasting BSG is trending downwards with adjustments. Will hold off on increasing Lantus today since multiple high dose increases over the last few days. Will increase Lantus tomorrow if fasting BSG same or higher tomorrow * BSGs still all above goal range after receiving high dose dexamethasone IV. Will continue to increase NPH. Current dosing is 0.5 units/kg; antione lincrease to 0.6 units/kg * No changes needed to CF/CR 05/25/21: * Thien received a total of 311 units of insulin yesterday * 140 units basal + 171 units bolus * BSGs were improved but still above goal: [phone] mg/dL * Fasting BSG was 163 mg/dL this AM - above goal * Increased basal regimen to match total daily basal dose from yesterday as patient's BSGs were improved * No change to Novolog * Started on Dexamethasone 10 mg IV daily this AM 05/24/21: * Thien received 290 units of SQ insulin yesterday + insulin drip x ~10hours at about 6unit/hr * Fasting BSG 91mg/dl, increase basal and move all of it to AM administration in preparation for discharge home on basal * Continue once daily NPH for steroid induced hyperglycemia * will not increase NPH at this time, as already tightening NovoLog and increasing Lantus * Tighten CF and CR and continue overnight checks to prevent insulin drip 05/23/21: * Thien received 244 units of SQ insulin yesterday * 85 units basal * 159 units bolus * poor glycemic control d/t steroid induced hyperglycemia with A1c > 10% * Fasting BSG of 157 mg/dL. Continue Lantus. * Continue once daily NPH for steroid induced hyperglycemia - increase dose for elevated blood sugars all day yesterday * Tighten carb coverage and continue overnight checks 05/22/21: * Thien received 133 units of SQ insulin + 10 units regular IV insulin yesterday * 45 units basal * 88 units bolus * poor glycemic control d/t steroid induced hyperglycemia with A1c > 10% * Fasting BSG of 241 mg/dL. Will start Lantus 20 units BID (equivalent to weight/stress of 2 based on adjusted BW). * Continue once daily NPH for steroid induced hyperglycemia. Today will be patients first dose of NPH. * Tighten carb coverage and continue overnight checks Background: * TR is a 56 year old male admitted to [facility] on 05/20 with COVID-19 pneumonia * Ordered dexamethasone 6 mg IV daily * BSGs have been significantly elevated today, pharmacy consulted for glycemic management on 05/21 with HS BSG check of 410 mg/dL * Given nursing burden with insulin infusion in COVID patient, will start by adding IV insulin bolus, tightening Novolog with overnight checks, and increasing basal * Will order 0.4 unit/kg NPH with tomorrow's dose of dexamethasone PLAN FOR INPATIENT GLYCEMIC CONTROL: * Hold outpatient oral diabetes medications * Basal insulin * Continue Lantus 80 units SQ Daily * Increase NPH 90 units SC qAM with IV dexamethasone - hold if dexamethasone held/discontinued * Bolus insulin: no change * NovoLog per scale ACHS or Q6hrs while NPO and overnight at 0000 and 0400 * Goal Range: Low 110 mg/dL - High 140 mg/dL * Correction Factor: 5 mg/dL/unit * Nutritional / Prandial insulin per carb ratio of 1 unit per 1 grams CHO consumed PLAN FOR DISCHARGE: * HbA1c of 10.2% suggests very poor outpatient glycemic control * Patient will likely require insulin upon discharge - doses tbd
[2021-05-27] MEDS: dexAMETHasone 10 MG in SYRINGE 0 ML IV SCH (11:51)
[2021-05-27] MEDS: ENOXAPARIN 80 MG/0.8 ML SYR SQ SCH (14:46)
[2021-05-27] MEDS: INSULIN ASPART 100 UNITS/ML VIAL SC SCH ×2 (17:02→20:50)
--- NOTE | 2021-05-27 18:09 | Hospitalist Progress Note ---
Date of Service May 27, 2021 Assessment & Plan (1) Pneumonia due to COVID-19 virus: Plan: -Acute respiratory failure with hypoxia secondary to Covid pneumonia patient initially with fever, hypoxemia, and mild tachypnea in addition to leukopenia and patchy opacities seen on chest x-ray. - Pulse ox had remained stable on 2-2.5 L of supplemental oxygen the first 5 days of hospitalization - on hospital day #6 (day 9-10 of symptom onset), his respiratory status started to decline and he was requiring up to 10L highflow to maintain a pulse ox in the low 90's and with very little exertion (such as rolling), he would desaturate to 84% patient on decadron 20mg x 5 d than 10 mg a day (increased from 6 given respiratory decline) -Patient has completed a full course of remdesivir -Intermittent Lasix dosing -Completed CAP antibiotics of Rocephin azithromycin - In addition, he was initially on lovenox for prophylaxis but with decline is his resporatory status, this was changed empirically to treatment dose until stable enough to have CTA - CTA performed showing no obvious PE and multifocal airspace disease consistent with atypical PNA - - blood cultures (1/4 tubes) growing CoNS- likely skin contaminant - - pharmacy on board to help with glycemic control-- appreciate this. - Patient livid about his carb consistent diet. Reassurance given -. - Proning encouraged; however, patient not able given his weight and back pain. Side-lying encouraged when sleeping and out of bed to chair to help aerate the lungs - Zinc/vitamin C for immune support - APAP as needed for fever - cont incentive spirometry Echocardiogram showed EF of 60 to 65%. No significant valvular disease. Mild RV dilation -Highly suspect obesity hypoventilation syndrome/COLT. Will need sleep apnea testing as an outpatient. Intolerant to trial of BiPAP while in house (2) Hypoxemia: Plan: * See above (3) Leukopenia: Plan: * Likely secondary to #1. Improved/resolved * continue to trend (4) CHI (acute kidney injury): Plan: * Metformin and losartan remain on hold * cr. Overall improved * On Decadron and multiple doses of IV Lasix (renal function slightly improved from baseline) * will continue to monitor. (5) Hyperglycemia: Plan: * Diabetes spurred on by steroids and dietary indiscretion * A1c way above goal * (6) Uncontrolled type 2 diabetes mellitus: Plan: * See above (7) Stage 3b chronic kidney disease: Plan: * Continue to hold ARB/Metformin. Benefit from NINA inhibitor in the future or ARB (8) Hypertension: Plan: * Norvasc resumed and BP controlled * BP currently controlled with discontinuation of losartan * May need to permanently discontinue losartan. (9) Hyperlipidemia: Plan: * continue statin therapy (10) Obesity: Plan: * likely has undiagnosed COLT-- need sleep study as an OP Plan: * Lovenox for DVT prophylaxis * prn Meds: MOM, Maalox, Zofran, APAP * Follow-up labs in a.m. to trend * Plan of care has been D/W Dr. Torrez Admission and Anticipated Discharge Date Admission Date: May 20, 2021 Subjective pt is now very disgruntled and frustrated has had escalation of oxygen need, non productive cough, bowel urgency Review of Systems Review of Systems: Moderate to severe distress and fatigue no headache, no visual changes no speech or swallowing issues no chest pain, pressure or palpitations Extreme dyspnea on exertion nonproductive cough breathlessness with minor exertion no abdominal pain, nausea or vomiting, having bowel frequency no dysuria, hematuria or frequency no focal joint pain or swelling no back pain, CVA tenderness or radicular pain no bruising, bleeding or rashes no focal signs of weakness or numbness or altered sensation no complaints of anxiety or depression.. Physical Exam Physical Exam: The patient appeared well nourished but in mild to moderate distress Vital signs as documented. Tachypnea and hypoxia Lungs are coarse bilaterally accessory muscle use tachypnea Cardiac exam, tachycardic but regular with exertion Extremities are nonedematous and both pedal pulses are normal. Neurologic exam is alert and oriented, no focal loss of strength or sensation Skin is without bruises or rashes Psychologically is with concerns for anxiety and frustration Results & Data Results & Data ([facility]) Vital Signs (Past 12 Hours) Vital Signs Temp Pulse Pulse Resp BP Pulse Ox Pulse Ox 05/27/21 15:20 84 19 93 05/27/21 15:00 79 05/27/21 14:46 98.6 F 80 23 129/60 90 05/27/21 11:21 72 20 92 05/27/21 10:44 97.5 F L 78 18 126/77 94 05/27/21 08:04 97.5 F L 74 18 137/85 90 05/27/21 08:00 67 94 05/27/21 07:28 71 20 90 PG Care Time/CCT Total # of Minutes Spent Total Time Spent with Patient: Total time spent is greater than 50% in coordination of care (as documented) at patient's floor/unit and/or counseling patient: Coding Level of Care Code 99998 Subseq Hosp Care Lvl 3 Diagnoses Pneumonia due to COVID-19 virus U07.1; J12.82 Hypoxemia R09.02 Leukopenia D72.819 Leukopenia type: unspecified CHI (acute kidney injury) N17.9 Hyperglycemia R73.9 Uncontrolled type 2 diabetes mellitus E11.65 Stage 3b chronic kidney disease N18.3 Hypertension I10 Hyperlipidemia E78.5 Obesity E66.9 (1) Leukopenia Leukopenia type: unspecified Qualified Code(s): D72.819 - Decreased white blood cell count, unspecified
[2021-05-27] MEDS: ATORVASTATIN 20 MG TAB PO SCH (20:29)
[2021-05-28] MEDS: ALBUT/IPRATROP 3MG/0.5MG NEB 3 ML VIAL NEB SCH ×4 (07:24→19:46)
[2021-05-28 08:41] LABS: Hematocrit (blood only) 38.6 % (42-52); Hemoglobin 12.7 g/dL (14.0-18.0); Mean Corpuscular Hemoglobin 27.6 pg (25-34); Mean Corpuscular Hgb Conc 32.9 g/dL (32-36); Mean Corpuscular Volume 83.9 fL (80-100); Mean Platelet Volume 10.1 fL (7.4-10.4); Platelet Count 305 K/uL (130-400); RDW Coefficient of Variation 14.3 % (11.5-14.5); RDW Standard Deviation 43.6 fL (36.4-46.3); White Blood Count 7.17 K/uL (4.8-10.8)
[2021-05-28] MEDS: FUROSEMIDE 20 MG TAB PO SCH (08:58)
[2021-05-28] MEDS: BENZONATATE 100 MG CAPSULE PO SCH ×3 (08:58→22:09)
[2021-05-28] MEDS: ASPIRIN 81 MG ECTAB PO SCH (08:58)
[2021-05-28] MEDS: guaiFENesin 600 MG TABCR PO SCH ×2 (08:58→22:08)
[2021-05-28] MEDS: allopurinoL 100 MG TAB PO SCH (08:58)
[2021-05-28] MEDS: amLODIPine BESYLATE 5 MG TAB PO SCH (08:59)
[2021-05-28] MEDS: ASCORBIC ACID 500 MG TAB PO SCH (08:59)
[2021-05-28] MEDS: ZINC SULFATE 220 MG CAPSULE PO SCH (08:59)
[2021-05-28] MEDS ORDERED: dexAMETHasone 20 MG in SYRINGE 0 ML IV SCH (09:00)
[2021-05-28 09:07] LABS: Albumin Globulin Ratio 0.6 (0.9-2); Albumin Level 2.4 gm/dl (3.4-5.0); BUN Creatinine Ratio 28.4 (10-20); Bilirubin,Total 0.3 mg/dl (0.2-1); Calcium 8.3 mg/dl (8.5-10.1); Creatinine Clr Calc Pharmacy 105.6 ml/min; Est GFR (African American) 75.4 ml/min; Globulin 4.1 gm/dl (2.5-4.0); Potassium 4.4 mmol/L (3.5-5.1); Total Protein 6.5 gm/dl (6.4-8.2)
[2021-05-28 09:11] LABS: ALC (manual) 0.63 K/uL (1.2-3.4); Lymphocytes # (manual) 0.63 K/uL (1.2-3.4); Lymphocytes % (manual) 8.8 %; Metamyelocytes # (manual) 0.13 K/uL (0-0); Metamyelocytes % (manual) 1.8 %; Monocytes # (manual) 0.38 K/uL (0.11-0.59); Monocytes % (manual) 5.3 %; Myelocytes # (manual) 0.13 K/uL (0-0); Myelocytes % (manual) 1.8 %; Neutrophils % (manual) 82.3 %; RBC Morphology Unremarkable
[2021-05-28] MEDS: INSULIN ASPART 100 UNITS/ML VIAL SC SCH ×4 (09:21→22:07)
[2021-05-28] MEDS: INSULIN HUMAN NPH SC SCH (09:22)
[2021-05-28] MEDS: INSULIN GLARGINE 100 UNIT/ML VIAL SC SCH (09:22)
[2021-05-28] MEDS: dexAMETHasone 20 MG in DEXTROSE 5% 25 ML IV SCH (09:51)
[2021-05-28] MEDS: DOXYCYCLINE HYCLATE 100 MG in DEXTROSE 5% 100 ML IV SCH ×2 (10:31→22:06)
[2021-05-28] MEDS: ENOXAPARIN 80 MG/0.8 ML SYR SQ SCH (12:58)
--- NOTE | 2021-05-28 18:10 | Hospitalist Progress Note ---
Date of Service May 28, 2021 Assessment & Plan (1) Pneumonia due to COVID-19 virus: Plan: -Acute respiratory failure with hypoxia secondary to Covid pneumonia patient initially with fever, hypoxemia, and mild tachypnea in addition to leukopenia and patchy opacities seen on chest x-ray. - Pulse ox had remained stable on 2-2.5 L of supplemental oxygen the first 5 days of hospitalization - on hospital day #6 (day 9-10 of symptom onset), his respiratory status started to decline and he was requiring up to 10L highflow to maintain a pulse ox in the low 90's and with very little exertion (such as rolling), he would desaturate to 84% patient on decadron 20mg x 5 d than 10 mg a day (increased from 6 given respiratory decline) -Patient has completed a full course of remdesivir -Daily low-dose Lasix dosing follow renal function -Completed CAP antibiotics of Rocephin azithromycin - In addition, he was initially on lovenox for prophylaxis but with decline is his resporatory status, this was changed empirically to treatment dose until stable enough to have CTA - CTA performed showing no obvious PE and multifocal airspace disease consistent with atypical PNA - - blood cultures (1/4 tubes) growing CoNS- likely skin contaminant - - pharmacy on board to help with glycemic control-- appreciate this. Made more of a challenge because of patient's dietary indiscretion -. - Proning encouraged; however, patient not able given his weight and back pain. Side-lying encouraged when sleeping and out of bed to chair to help aerate the lungs - Zinc/vitamin C for immune support - APAP as needed for fever - cont incentive spirometry Echocardiogram showed EF of 60 to 65%. No significant valvular disease. Mild RV dilation -Highly suspect obesity hypoventilation syndrome/COLT. Will need sleep apnea testing as an outpatient. Intolerant to trial of BiPAP while in house (2) Hypoxemia: Plan: * Acute respiratory failure with hypoxia secondary to COVID-19 pneumonia (3) Leukopenia: Plan: * Likely secondary to Covid infection. Improved/resolved * continue to trend (4) CHI (acute kidney injury): Plan: * Metformin and losartan remain on hold * Renal function has overall improved * On Decadron and daily oral Lasix (renal function slightly improved from baseline) * will continue to monitor. (5) Hyperglycemia: Plan: * Diabetes spurred on by steroids and dietary indiscretion * A1c above goal * (6) Uncontrolled type 2 diabetes mellitus: Plan: * Patient is challenged with dietary restraint (7) Stage 3b chronic kidney disease: Plan: * Continue to hold ARB/Metformin. Previously on losartan blood pressure allows will restart meds been low (8) Hypertension: Plan: * Norvasc resumed and BP controlled * BP currently controlled with discontinuation of losartan * May need to permanently discontinue losartan. (9) Hyperlipidemia: Plan: * continue statin therapy (10) Obesity: Plan: * likely has undiagnosed COLT-- need sleep study as an OP Plan: * Lovenox for DVT prophylaxis * prn Meds: MOM, Maalox, Zofran, APAP * Admission and Anticipated Discharge Date Admission Date: May 20, 2021 Subjective Patient about the same still fairly hypoxic requiring a 9 to 10 L high flow wall nasal cannula and having nonproductive coughing which is severe at times no sig nificant diarrhea or loss of taste or smell Review of Systems Review of Systems: Mild distress and moderate fatigue no headache, no visual changes no speech or swallowing issues no chest pain, pressure or palpitations Significant dyspnea on exertion nonproductive cough and fatigue with exertion no abdominal pain, nausea or vomiting, diarrhea or constipation no dysuria, hematuria or frequency no focal joint pain or swelling no back pain, CVA tenderness or radicular pain no bruising, bleeding or rashes no focal signs of weakness or numbness or altered sensation no complaints of anxiety or depression.. Physical Exam Physical Exam: The patient appeared well nourished and normally developed. Decrease easily with just speaking Vital signs as documented. Head exam is normocephalic atraumatic Neck is without JVD, thyromegaly, or carotid bruits. Lungs are coarse bilaterally with no focal air loss Cardiac exam, Rhythm is regular.. No murmurs, rubs or gallops. Abdominal exam reveals normal bowel sounds, soft non tender, no masses Extremities are nonedematous and both pedal pulses are present Neurologic exam is alert and oriented, no focal loss of strength or sensation Skin is without bruises or rashes Psychologically is without concerns for anxiety or depression Results & Data Results & Data ([facility]) Vital Signs (Past 12 Hours) Vital Signs Temp Pulse Resp BP Pulse Ox 05/28/21 15:47 98.6 F 74 20 120/71 94 05/28/21 15:35 79 20 92 05/28/21 12:15 97.7 F 76 20 130/82 93 05/28/21 11:06 71 20 90 05/28/21 08:16 97.7 F 70 20 133/79 90 05/28/21 07:29 68 20 91 PG Care Time/CCT Total # of Minutes Spent Total Time Spent with Patient: Total time spent is greater than 50% in coordination of care (as documented) at patient's floor/unit and/or counseling patient: Coding Level of Care Code 48039 Subseq Hosp Care Lvl 2 Diagnoses Pneumonia due to COVID-19 virus U07.1; J12.82 Hypoxemia R09.02 Leukopenia D72.819 Leukopenia type: unspecified CHI (acute kidney injury) N17.9 Hyperglycemia R73.9 Uncontrolled type 2 diabetes mellitus E11.65 Stage 3b chronic kidney disease N18.3 Hypertension I10 Hyperlipidemia E78.5 Obesity E66.9 (1) Leukopenia Leukopenia type: unspecified Qualified Code(s): D72.819 - Decreased white blood cell count, unspecified
[2021-05-28] MEDS: ATORVASTATIN 20 MG TAB PO SCH (22:08)
[2021-05-29] MEDS: ALBUT/IPRATROP 3MG/0.5MG NEB 3 ML VIAL NEB SCH (07:57)
[2021-05-29] MEDS: INSULIN ASPART 100 UNITS/ML VIAL SC SCH ×4 (08:58→20:42)
[2021-05-29] MEDS: INSULIN GLARGINE 100 UNIT/ML VIAL SC SCH (08:59)
[2021-05-29] MEDS: ZINC SULFATE 220 MG CAPSULE PO SCH (08:59)
[2021-05-29] MEDS: ASPIRIN 81 MG ECTAB PO SCH (08:59)
[2021-05-29] MEDS: INSULIN HUMAN NPH SC SCH (08:59)
[2021-05-29] MEDS: guaiFENesin 600 MG TABCR PO SCH ×2 (08:59→20:33)
[2021-05-29] MEDS: allopurinoL 100 MG TAB PO SCH (08:59)
[2021-05-29] MEDS: BENZONATATE 100 MG CAPSULE PO SCH ×3 (08:59→20:33)
[2021-05-29] MEDS: amLODIPine BESYLATE 5 MG TAB PO SCH (08:59)
[2021-05-29] MEDS: dexAMETHasone 20 MG in DEXTROSE 5% 25 ML IV SCH (09:00)
[2021-05-29] MEDS: ASCORBIC ACID 500 MG TAB PO SCH (09:00)
[2021-05-29] MEDS: DOXYCYCLINE HYCLATE 100 MG in DEXTROSE 5% 100 ML IV SCH ×2 (09:00→20:30)
[2021-05-29 09:03] LABS: Hemoglobin 12.8 g/dL (14.0-18.0); Mean Corpuscular Hemoglobin 27.5 pg (25-34); Mean Corpuscular Hgb Conc 32.8 g/dL (32-36); Mean Corpuscular Volume 83.7 fL (80-100); Mean Platelet Volume 10.4 fL (7.4-10.4); Platelet Count 338 K/uL (130-400); RDW Coefficient of Variation 14.3 % (11.5-14.5); RDW Standard Deviation 43.5 fL (36.4-46.3); Red Blood Count 4.66 M/uL (4.7-6.1); White Blood Count 8.79 K/uL (4.8-10.8)
[2021-05-29] MEDS ORDERED: ALBUT/IPRATROP 3MG/0.5MG NEB 3 ML VIAL NEB PRN (09:22)
[2021-05-29 09:26] LABS: ALC (manual) 1.45 K/uL (1.2-3.4); ANC (manual) 6.96 K/uL (1.4-6.5); Anisocytosis Present; Basophilic Stippling 1+; Lymphocytes # (manual) 1.45 K/uL (1.2-3.4); Lymphocytes % (manual) 16.5 %; Metamyelocytes # (manual) 0.15 K/uL (0-0); Metamyelocytes % (manual) 1.7 %; Monocytes # (manual) 0.23 K/uL (0.11-0.59); Monocytes % (manual) 2.6 %; Neutrophils # (manual) 6.96 K/uL (1.4-6.5); Neutrophils % (manual) 79.2 %; Polychromasia 1+
[2021-05-29 09:28] LABS: Albumin Level 2.5 gm/dl (3.4-5.0); BUN Creatinine Ratio 29.2 (10-20); Calcium 8.1 mg/dl (8.5-10.1); Creatinine Clr Calc Pharmacy 102.3 ml/min; Est GFR (African American) 71.2 ml/min; Est GFR (Non-African American) 61.4 ml/min; Potassium 3.8 mmol/L (3.5-5.1)
[2021-05-29 09:31] LABS: Albumin Globulin Ratio 0.6 (0.9-2); Bilirubin,Total 0.4 mg/dl (0.2-1); Globulin 4.1 gm/dl (2.5-4.0); Total Protein 6.6 gm/dl (6.4-8.2)
[2021-05-29] MEDS: ENOXAPARIN 80 MG/0.8 ML SYR SQ SCH (13:32)
--- NOTE | 2021-05-29 18:58 | Hospitalist Progress Note ---
Date of Service May 29, 2021 Assessment & Plan (1) Pneumonia due to COVID-19 virus: Plan: -Acute respiratory failure with hypoxia secondary to Covid pneumonia patient initially with fever, hypoxemia, and mild tachypnea in addition to leukopenia and patchy opacities seen on chest x-ray. - - on hospital day #6 (day 9-10 of symptom onset), his respiratory status started to decline and he was requiring up to 10L highflow to maintain a pulse ox in the low 90's and with very little exertion (such as rolling), he would desaturate to 84% patient on decadron 20mg x 5 d than 10 mg a day (increased from 6 given respiratory decline) -Patient has completed a full course of remdesivir-05/29, has finally had reduction of oxygen requirement -Daily low-dose Lasix dosing follow renal function -Completed CAP antibiotics of Rocephin azithromycin - In addition, he was initially on lovenox for prophylaxis but with decline is his respiratory status, this was changed empirically to treatment dose until stable enough to have CTA - CTA performed showing no obvious PE and multifocal airspace disease consistent with atypical PNA - - blood cultures (1/4 tubes) growing Coag Negative Staph- likely skin contaminant - - pharmacy on board to help with glycemic control-- appreciate this. Made more of a challenge because of patient's dietary indiscretion -. - Proning encouraged; however, patient not able given his weight and back pain. Side-lying encouraged when sleeping and out of bed to chair to help aerate the lungs - Zinc/vitamin C for immune support - APAP as needed for fever - cont incentive spirometry Echocardiogram showed EF of 60 to 65%. No significant valvular disease. Mild RV dilation -Highly suspect obesity hypoventilation syndrome/COLT. Will need sleep apnea testing as an outpatient. Intolerant to trial of BiPAP while in house (2) Hypoxemia: Plan: * Acute respiratory failure with hypoxia secondary to COVID-19 pneumonia (3) Leukopenia: Plan: * Likely secondary to Covid infection. Improved/resolved * continue to trend (4) CHI (acute kidney injury): Plan: * Metformin and losartan remain on hold * Renal function has overall improved * On Decadron and daily oral Lasix (renal function slightly improved from baseline) * will continue to monitor. (5) Hyperglycemia: Plan: * Diabetes spurred on by steroids and dietary indiscretion * A1c above goal * (6) Uncontrolled type 2 diabetes mellitus: Plan: * Patient is challenged with dietary restraint (7) Stage 3b chronic kidney disease: Plan: * Continue to hold ARB/Metformin. Previously on losartan blood pressure allows will restart meds been low (8) Hypertension: Plan: * Norvasc resumed and BP controlled * BP currently controlled with discontinuation of losartan * May need to permanently discontinue losartan. (9) Hyperlipidemia: Plan: * continue statin therapy (10) Obesity: Plan: * likely has undiagnosed COLT-- need sleep study as an OP Plan: * Lovenox for DVT prophylaxis * prn Meds: MOM, Maalox, Zofran, APAP * Admission and Anticipated Discharge Date Admission Date: May 20, 2021 Subjective Patienthas had reduction of high flow wall nasal cannula to 5 L , but still having nonproductive coughing which is severe at times no significant diarrhea or loss of taste or smell, but has a metallic taste in his mouth Review of Systems Review of Systems: Mild distress and moderate fatigue no headache, no visual changes no speech or swallowing issues no chest pain, pressure or palpitations Significant dyspnea on exertion nonproductive cough and fatigue with exertion no abdominal pain, nausea or vomiting, diarrhea or constipation no dysuria, hematuria or frequency no focal joint pain or swelling no back pain, CVA tenderness or radicular pain no bruising, bleeding or rashes no focal signs of weakness or numbness or altered sensation no complaints of anxiety or depression.. Physical Exam Physical Exam: The patient appeared well nourished and normally developed. Decrease easily with just speaking Vital signs as documented. Head exam is normocephalic atraumatic Neck is without JVD, thyromegaly, or carotid bruits. Lungs are coarse bilaterally with no focal air loss Cardiac exam, Rhythm is regular.. No murmurs, rubs or gallops. Abdominal exam reveals normal bowel sounds, soft non tender, no masses Extremities are nonedematous and both pedal pulses are present Neurologic exam is alert and oriented, no focal loss of strength or sensation Skin is without bruises or rashes Psychologically is without concerns for anxiety or depression Results & Data Results & Data ([facility]) Vital Signs (Past 12 Hours) Vital Signs Temp Pulse Pulse Resp BP Pulse Ox 05/29/21 15:28 84 05/29/21 15:12 97.9 F 74 18 119/73 91 05/29/21 11:51 98.4 F 68 18 142/83 H 92 05/29/21 07:56 67 22 91 05/29/21 07:15 97.9 F 68 20 122/79 90 05/29/21 07:06 62 PG Care Time/CCT Total # of Minutes Spent Total Time Spent with Patient: Total time spent is greater than 50% in coordination of care (as documented) at patient's floor/unit and/or counseling patient: Coding Level of Care Code 01329 Subseq Hosp Care Lvl 2 Diagnoses Pneumonia due to COVID-19 virus U07.1; J12.82 Hypoxemia R09.02 Leukopenia D72.819 Leukopenia type: unspecified CHI (acute kidney injury) N17.9 Hyperglycemia R73.9 Uncontrolled type 2 diabetes mellitus E11.65 Stage 3b chronic kidney disease N18.3 Hypertension I10 Hyperlipidemia E78.5 Obesity E66.9 (1) Leukopenia Leukopenia type: unspecified Qualified Code(s): D72.819 - Decreased white blood cell count, unspecified
[2021-05-29] MEDS: ATORVASTATIN 20 MG TAB PO SCH (20:34)
[2021-05-30] MEDS: guaiFENesin 600 MG TABCR PO SCH ×2 (09:12→21:23)
[2021-05-30] MEDS: ZINC SULFATE 220 MG CAPSULE PO SCH (09:12)
[2021-05-30] MEDS: ASCORBIC ACID 500 MG TAB PO SCH (09:12)
[2021-05-30] MEDS: ASPIRIN 81 MG ECTAB PO SCH (09:12)
[2021-05-30] MEDS: BENZONATATE 100 MG CAPSULE PO SCH ×3 (09:12→21:23)
[2021-05-30] MEDS: amLODIPine BESYLATE 5 MG TAB PO SCH (09:12)
[2021-05-30] MEDS: allopurinoL 100 MG TAB PO SCH (09:12)
[2021-05-30] MEDS: dexAMETHasone 20 MG in DEXTROSE 5% 25 ML IV SCH (09:15)
[2021-05-30] MEDS: INSULIN HUMAN NPH SC SCH (09:18)
[2021-05-30] MEDS: INSULIN GLARGINE 100 UNIT/ML VIAL SC SCH (09:20)
[2021-05-30] MEDS: INSULIN ASPART 100 UNITS/ML VIAL SC SCH ×4 (09:21→21:12)
--- NOTE | 2021-05-30 09:22 | Pharmacy Report ---
Pharmacy Glycemic Short Note 2 - Date of Service May 30, 2021 - Glycemic Short BSG Results (Last 24 hours): 05/29/21 05/29/21 05/29/21 08:24 11:45 16:41 Glucose 83 POC Glucose 140 H 190 H 05/29/21 05/30/21 20:15 07:56 Glucose POC Glucose 180 H 116 H OUTPATIENT ANTIDIABETIC REGIMEN: * Metformin 750 mg PO qPM * Glimepiride 2 mg PO qAM * Liraglutide 1.2 mg SC qAM * HbA1c: 10.2% (05/20/21) ASSESSMENT: 05/30/21 * Pt has received 209 units of insulin over the past 24hrs * 80 units of basal with Lantus * 90 units of NPH for steroid induced hyperglycemia * 139 units of bolus with NovoLog * BSGs 70-190 mg/dl * AM fasting at goal, 116 mg/dl, continue Lantus * Blood sugars close to goal throughout the day, No changes needed to CF/CR or NPH * Pt remains on Dexamethasone 20mg IV Daily 05/27/21 * Pt has received 429 units of insulin over the past 24hrs * 80 units of basal with Lantus * 80 units of NPH for steroid induced hyperglycemia * 269 units of bolus with NovoLog * BSGs [phone] mg/dl * AM fasting BSG near goal range at 160 mg/dl Lantus continues to be aggressively titrated upwards daily. AM fasting BSG is trending downwards with adjustments. Will hold off on increasing Lantus today since multiple high dose increases over the last few days. Will increase Lantus tomorrow if fasting BSG same or higher tomorrow * BSGs still all above goal range after receiving high dose dexamethasone IV. Will continue to increase NPH. Current dosing is 0.5 units/kg; antione lincrease to 0.6 units/kg * No changes needed to CF/CR 05/25/21: * Thien received a total of 311 units of insulin yesterday * 140 units basal + 171 units bolus * BSGs were improved but still above goal: [id number] mg/dL * Fasting BSG was 163 mg/dL this AM - above goal * Increased basal regimen to match total daily basal dose from yesterday as patient's BSGs were improved * No change to Novolog * Started on Dexamethasone 10 mg IV daily this AM 05/24/21: * Thien received 290 units of SQ insulin yesterday + insulin drip x ~10hours at about 6unit/hr * Fasting BSG 91mg/dl, increase basal and move all of it to AM administration in preparation for discharge home on basal * Continue once daily NPH for steroid induced hyperglycemia * will not increase NPH at this time, as already tightening NovoLog and increasing Lantus * Tighten CF and CR and continue overnight checks to prevent insulin drip 05/23/21: * Thien received 244 units of SQ insulin yesterday * 85 units basal * 159 units bolus * poor glycemic control d/t steroid induced hyperglycemia with A1c > 10% * Fasting BSG of 157 mg/dL. Continue Lantus. * Continue once daily NPH for steroid induced hyperglycemia - increase dose for elevated blood sugars all day yesterday * Tighten carb coverage and continue overnight checks 05/22/21: * Thien received 133 units of SQ insulin + 10 units regular IV insulin yesterday * 45 units basal * 88 units bolus * poor glycemic control d/t steroid induced hyperglycemia with A1c > 10% * Fasting BSG of 241 mg/dL. Will start Lantus 20 units BID (equivalent to weight/stress of 2 based on adjusted BW). * Continue once daily NPH for steroid induced hyperglycemia. Today will be patients first dose of NPH. * Tighten carb coverage and continue overnight checks Background: * TR is a 56 year old male admitted to [facility] on 05/20 with COVID-19 pneumonia * Ordered dexamethasone 6 mg IV daily * BSGs have been significantly elevated today, pharmacy consulted for glycemic management on 05/21 with HS BSG check of 410 mg/dL * Given nursing burden with insulin infusion in COVID patient, will start by adding IV insulin bolus, tightening Novolog with overnight checks, and increasing basal * Will order 0.4 unit/kg NPH with tomorrow's dose of dexamethasone PLAN FOR INPATIENT GLYCEMIC CONTROL: * Hold outpatient oral diabetes medications * Basal insulin * Lantus 80 units SQ Daily * NPH 90 units SC qAM with IV dexamethasone - hold if dexamethasone held/discontinued * Bolus insulin: * NovoLog per scale ACHS or Q6hrs while NPO * Goal Range: Low 110 mg/dL - High 140 mg/dL * Correction Factor: 5 mg/dL/unit * Nutritional / Prandial insulin per carb ratio of 1 unit per 1 grams CHO consumed PLAN FOR DISCHARGE: * HbA1c of 10.2% suggests very poor outpatient glycemic control * Patient will likely require insulin upon discharge - doses tbd
[2021-05-30] MEDS: DOXYCYCLINE HYCLATE 100 MG in DEXTROSE 5% 100 ML IV SCH ×2 (10:05→21:23)
[2021-05-30] MEDS: ENOXAPARIN 80 MG/0.8 ML SYR SQ SCH (14:25)
--- NOTE | 2021-05-30 15:34 | Hospitalist Progress Note ---
Date of Service May 30, 2021 Assessment & Plan (1) Pneumonia due to COVID-19 virus: Plan: -Acute respiratory failure with hypoxia secondary to Covid pneumonia patient initially with fever, hypoxemia, and mild tachypnea in addition to leukopenia and patchy opacities seen on chest x-ray. - - on hospital day #6 (day 9-10 of symptom onset), his respiratory status started to decline and he was requiring up to 10L highflow to maintain a pulse ox in the low 90's and with very little exertion (such as rolling), he would desaturate to 84% patient on decadron 20mg x 5 d than 10 mg a day (increased from 6 given respiratory decline) -Patient has completed a full course of remdesivir-05/29, has finally had reduction of oxygen requirement -Daily low-dose Lasix dosing follow renal function -Completed CAP antibiotics of Rocephin azithromycin - In addition, he was initially on lovenox for prophylaxis but with decline is his respiratory status, this was changed empirically to treatment dose until stable enough to have CTA - CTA performed showing no obvious PE and multifocal airspace disease consistent with atypical PNA - - blood cultures (1/4 tubes) growing Coag Negative Staph- likely skin contaminant - - pharmacy on board to help with glycemic control-- appreciate this. Made more of a challenge because of patient's dietary indiscretion -. - Proning encouraged; however, patient not able given his weight and back pain. Side-lying encouraged when sleeping and out of bed to chair to help aerate the lungs - Zinc/vitamin C for immune support - APAP as needed for fever - cont incentive spirometry Echocardiogram showed EF of 60 to 65%. No significant valvular disease. Mild RV dilation -Highly suspect obesity hypoventilation syndrome/COLT. Will need sleep apnea testing as an outpatient. Intolerant to trial of BiPAP while in house (2) Hypoxemia: Plan: * Acute respiratory failure with hypoxia secondary to COVID-19 pneumonia * aggressively titrate oxygen down * continue diuresis * high dose dexamethasone (3) Leukopenia: Plan: * Likely secondary to Covid infection. Improved/resolved * continue to trend (4) CHI (acute kidney injury): Plan: * Metformin and losartan remain on hold * Renal function has overall improved * On daily oral Lasix (renal function slightly improved from baseline) * (5) Hyperglycemia: Plan: * Diabetes spurred on by steroids and dietary indiscretion * A1c above goal * basal bolus insulin (6) Uncontrolled type 2 diabetes mellitus: Plan: * Patient is challenged with dietary restraint (7) Stage 3b chronic kidney disease: Plan: * Continue to hold ARB/Metformin. Previously on losartan blood pressure allows will restart meds been low (8) Hypertension: Plan: * Norvasc resumed and BP controlled * BP currently controlled with discontinuation of losartan * May need to permanently discontinue losartan. (9) Hyperlipidemia: Plan: * continue statin therapy (10) Obesity: Plan: * likely has undiagnosed COLT-- need sleep study as an OP Plan: * Lovenox for DVT prophylaxis * prn Meds: MOM, Maalox, Zofran, APAP * Admission and Anticipated Discharge Date Admission Date: May 20, 2021 Subjective Patienthas had reduction of high flow wall nasal cannula to 5 L , but stuck there, still having nonproductive coughing which is severe at times no significant diarrhea but urgency of bowel movement. no loss of taste or smell, but has a metallic taste in his mouth Review of Systems Review of Systems: Mild distress and moderate fatigue no headache, no visual changes no speech or swallowing issues no chest pain, pressure or palpitations Significant dyspnea on exertion nonproductive cough and fatigue with exertion no abdominal pain, nausea or vomiting, diarrhea or constipation no dysuria, hematuria or frequency no focal joint pain or swelling no back pain, CVA tenderness or radicular pain no bruising, bleeding or rashes no focal signs of weakness or numbness or altered sensation no complaints of anxiety or depression.. Physical Exam Physical Exam: The patient appeared well nourished and normally developed. Decrease easily with just speaking Vital signs as documented. Head exam is normocephalic atraumatic Neck is without JVD, thyromegaly, or carotid bruits. Lungs are coarse bilaterally with no focal air loss Cardiac exam, Rhythm is regular.. No murmurs, rubs or gallops. Abdominal exam reveals normal bowel sounds, soft non tender, no masses Extremities are nonedematous and both pedal pulses are present Neurologic exam is alert and oriented, no focal loss of strength or sensation Skin is without bruises or rashes Psychologically is without concerns for anxiety or depression Results & Data Results & Data ([facility]) Vital Signs (Past 12 Hours) Vital Signs Temp Pulse Pulse Resp BP BP Pulse Ox 05/30/21 14:49 98.6 F 81 22 128/73 92 05/30/21 12:25 76 05/30/21 11:47 97.7 F 76 20 125/76 90 05/30/21 08:07 98.1 F 75 22 117/75 90 PG Care Time/CCT Total # of Minutes Spent Total Time Spent with Patient: Total time spent is greater than 50% in coordination of care (as documented) at patient's floor/unit and/or counseling patient: Coding Level of Care Code 20552 Subseq Hosp Care Lvl 2 Diagnoses Pneumonia due to COVID-19 virus U07.1; J12.82 Hypoxemia R09.02 Leukopenia D72.819 Leukopenia type: unspecified CHI (acute kidney injury) N17.9 Hyperglycemia R73.9 Uncontrolled type 2 diabetes mellitus E11.65 Stage 3b chronic kidney disease N18.3 Hypertension I10 Hyperlipidemia E78.5 Obesity E66.9 (1) Leukopenia Leukopenia type: unspecified Qualified Code(s): D72.819 - Decreased white blood cell count, unspecified
[2021-05-30] MEDS: ATORVASTATIN 20 MG TAB PO SCH (21:37)
[2021-05-31 08:10] LABS: BUN Creatinine Ratio 36.5 (10-20); Calcium 8.2 mg/dl (8.5-10.1); Creatinine Clr Calc Pharmacy 104.4 ml/min; Est GFR (African American) 74.7 ml/min; Est GFR (Non-African American) 64.4 ml/min; Potassium 4.5 mmol/L (3.5-5.1)
[2021-05-31] MEDS: allopurinoL 100 MG TAB PO SCH (08:12)
[2021-05-31] MEDS: ASCORBIC ACID 500 MG TAB PO SCH (08:12)
[2021-05-31] MEDS: BENZONATATE 100 MG CAPSULE PO SCH ×3 (08:12→20:12)
[2021-05-31] MEDS: amLODIPine BESYLATE 5 MG TAB PO SCH (08:12)
[2021-05-31] MEDS: DOXYCYCLINE HYCLATE 100 MG in DEXTROSE 5% 100 ML IV SCH ×3 (08:13→20:12)
[2021-05-31] MEDS: ZINC SULFATE 220 MG CAPSULE PO SCH (08:13)
[2021-05-31] MEDS: dexAMETHasone 20 MG in DEXTROSE 5% 25 ML IV SCH ×2 (08:13→08:15)
[2021-05-31] MEDS: guaiFENesin 600 MG TABCR PO SCH ×2 (08:13→20:11)
[2021-05-31] MEDS: ASPIRIN 81 MG ECTAB PO SCH (08:16)
--- NOTE | 2021-05-31 08:31 | Hospitalist Progress Note ---
Date of Service May 31, 2021 Assessment & Plan (1) Pneumonia due to COVID-19 virus: Plan: -Acute respiratory failure with hypoxia secondary to Covid pneumonia patient initially with fever, hypoxemia, and mild tachypnea in addition to leukopenia and patchy opacities seen on chest x-ray. - - on hospital day #6 (day 9-10 of symptom onset), his respiratory status started to decline and he was requiring up to 10L highflow to maintain a pulse ox in the low 90's and with very little exertion (such as rolling), he would desaturate to 84% patient on decadron 20mg x 5 d than 10 mg a day (increased from 6 given respiratory decline) -Patient has completed a full course of remdesivir-05/29, has finally had reduction of oxygen requirement as mentioned in the subjective portion will attempt at home and oxygen to convalesce as he is seemingly is stable although not improving dramatically or worsening dramatically -Daily low-dose Lasix dosing follow renal function -Completed CAP antibiotics of Rocephin azithromycin - In addition, he was initially on lovenox for prophylaxis but with decline is his respiratory status, this was changed empirically to treatment dose until stable enough to have CTA - CTA performed showing no obvious PE and multifocal airspace disease consistent with atypical PNA - - blood cultures (1/4 tubes) growing Coag Negative Staph- likely skin contaminant - - pharmacy on board to help with glycemic control-- appreciate this. Made more of a challenge because of patient's dietary indiscretion -. - Proning encouraged; however, patient not able given his weight and back pain. Side-lying encouraged when sleeping and out of bed to chair to help aerate the lungs - Zinc/vitamin C for immune support - APAP as needed for fever - cont incentive spirometry Echocardiogram showed EF of 60 to 65%. No significant valvular disease. Mild RV dilation -Highly suspect obesity hypoventilation syndrome/COLT. Will need sleep apnea testing as an outpatient. Intolerant to trial of BiPAP while in house (2) Hypoxemia: Plan: * Acute respiratory failure with hypoxia secondary to COVID-19 pneumonia * aggressively titrate oxygen down * continue diuresis * high dose dexamethasone (3) Leukopenia: Plan: * Likely secondary to Covid infection. Improved/resolved * continue to trend (4) CHI (acute kidney injury): Plan: * Metformin and losartan remain on hold * Renal function has overall improved * On daily oral Lasix (renal function slightly improved from baseline) * (5) Hyperglycemia: Plan: * Diabetes spurred on by steroids and dietary indiscretion * A1c above goal * basal bolus insulin (6) Uncontrolled type 2 diabetes mellitus: Plan: * Patient is challenged with dietary restraint (7) Stage 3b chronic kidney disease: Plan: * Continue to hold ARB/Metformin. Previously on losartan blood pressure allows will restart meds been low (8) Hypertension: Plan: * Norvasc resumed and BP controlled * BP currently controlled with discontinuation of losartan * May need to permanently discontinue losartan. (9) Hyperlipidemia: Plan: * continue statin therapy (10) Obesity: Plan: * likely has undiagnosed COLT-- need sleep study as an OP Plan: * Lovenox for DVT prophylaxis * prn Meds: MOM, Maalox, Zofran, APAP * Admission and Anticipated Discharge Date Admission Date: May 20, 2021 Subjective Patienthas had reduction of high flow wall nasal cannula on 05/30 he was down that 2 L for a bit but he is back up to 4 to 5 L at this time. Still having nonproductive coughing which is severe at times no significant diarrhea but urgency of bowel movement. no loss of taste or smell, but has a metallic taste in his mouth Patient states that if he is able to go home even if is on oxygen he would like to do so. We will try to get him to 4 L getting home on oxygen will do a two- step on 06/01/2021 Review of Systems Review of Systems: Mild distress and moderate fatigue no headache, no visual changes no speech or swallowing issues no chest pain, pressure or palpitations Significant dyspnea on exertion nonproductive cough and fatigue with exertion no abdominal pain, nausea or vomiting, diarrhea or constipation no dysuria, hematuria or frequency no focal joint pain or swelling no back pain, CVA tenderness or radicular pain no bruising, bleeding or rashes no focal signs of weakness or numbness or altered sensation no complaints of anxiety or depression.. Physical Exam Physical Exam: The patient appeared well nourished and normally developed. Decrease easily with just speaking Vital signs as documented. Head exam is normocephalic atraumatic Neck is without JVD, thyromegaly, or carotid bruits. Lungs are coarse bilaterally with no focal air loss Cardiac exam, Rhythm is regular.. No murmurs, rubs or gallops. Abdominal exam reveals normal bowel sounds, soft non tender, no masses Extremities are nonedematous and both pedal pulses are present Neurologic exam is alert and oriented, no focal loss of strength or sensation Skin is without bruises or rashes Psychologically is without concerns for anxiety or depression Results & Data Results & Data ([facility]) Vital Signs (Past 12 Hours) Vital Signs Temp Pulse Resp BP Pulse Ox 05/31/21 08:09 97.9 F 71 16 124/72 94 05/30/21 22:35 98.2 F 68 14 128/74 96 PG Care Time/CCT Total # of Minutes Spent Total Time Spent with Patient: Total time spent is greater than 50% in coordination of care (as documented) at patient's floor/unit and/or counseling patient: Coding Level of Care Code 85322 Subseq Hosp Care Lvl 2 Diagnoses Pneumonia due to COVID-19 virus U07.1; J12.82 Hypoxemia R09.02 Leukopenia D72.819 Leukopenia type: unspecified CHI (acute kidney injury) N17.9 Hyperglycemia R73.9 Uncontrolled type 2 diabetes mellitus E11.65 Stage 3b chronic kidney disease N18.3 Hypertension I10 Hyperlipidemia E78.5 Obesity E66.9 (1) Leukopenia Leukopenia type: unspecified Qualified Code(s): D72.819 - Decreased white blood cell count, unspecified
[2021-05-31] MEDS: INSULIN HUMAN NPH SC SCH (09:22)
[2021-05-31] MEDS: INSULIN GLARGINE 100 UNIT/ML VIAL SC SCH (09:23)
[2021-05-31] MEDS: INSULIN ASPART 100 UNITS/ML VIAL SC SCH ×4 (09:24→20:27)
--- NOTE | 2021-05-31 12:16 | Pharmacy Report ---
Pharmacy Glycemic Short Note 2 - Date of Service May 31, 2021 - Glycemic Short BSG Results (Last 24 hours): 05/30/21 05/30/21 05/31/21 16:56 20:30 06:17 Glucose 121 H POC Glucose 134 H 125 H 05/31/21 05/31/21 09:12 11:12 Glucose POC Glucose 218 H 261 H OUTPATIENT ANTIDIABETIC REGIMEN: * Metformin 750 mg PO qPM * Glimepiride 2 mg PO qAM * Liraglutide 1.2 mg SC qAM * HbA1c: 10.2% (05/20/21) ASSESSMENT: 05/31/21 * Pt has received 404 units of insulin over the past 24hrs * 80 units of basal with Lantus * 90 units of NPH for steroid induced hyperglycemia * 234 units of bolus with NovoLog * BSGs 116-245 mg/dl * AM fasting at goal, 121 mg/dl, continue Lantus * Blood sugars close to goal throughout the day, No changes needed to CF/CR or NPH * Pt remains on Dexamethasone 20mg IV Daily * NOTE: Pt only received 11 units Novolog at breakfast today, d/t wrong CR used by RN (used 5 instead of 1 for CR), resulting in BSG 261mg/dl at lunch, no changes, will give correction to fix 05/30/21 * Pt has received 209 units of insulin over the past 24hrs * 80 units of basal with Lantus * 90 units of NPH for steroid induced hyperglycemia * 139 units of bolus with NovoLog * BSGs 70-190 mg/dl * AM fasting at goal, 116 mg/dl, continue Lantus * Blood sugars close to goal throughout the day, No changes needed to CF/CR or NPH * Pt remains on Dexamethasone 20mg IV Daily 05/27/21 * Pt has received 429 units of insulin over the past 24hrs * 80 units of basal with Lantus * 80 units of NPH for steroid induced hyperglycemia * 269 units of bolus with NovoLog * BSGs [phone] mg/dl * AM fasting BSG near goal range at 160 mg/dl Lantus continues to be aggressively titrated upwards daily. AM fasting BSG is trending downwards with adjustments. Will hold off on increasing Lantus today since multiple high dose increases over the last few days. Will increase Lantus tomorrow if fasting BSG same or higher tomorrow * BSGs still all above goal range after receiving high dose dexamethasone IV. Will continue to increase NPH. Current dosing is 0.5 units/kg; antione lincrease to 0.6 units/kg * No changes needed to CF/CR 05/25/21: * Thien received a total of 311 units of insulin yesterday * 140 units basal + 171 units bolus * BSGs were improved but still above goal: [phone] mg/dL * Fasting BSG was 163 mg/dL this AM - above goal * Increased basal regimen to match total daily basal dose from yesterday as patient's BSGs were improved * No change to Novolog * Started on Dexamethasone 10 mg IV daily this AM 05/24/21: * Thien received 290 units of SQ insulin yesterday + insulin drip x ~10hours at about 6unit/hr * Fasting BSG 91mg/dl, increase basal and move all of it to AM administration in preparation for discharge home on basal * Continue once daily NPH for steroid induced hyperglycemia * will not increase NPH at this time, as already tightening NovoLog and increasing Lantus * Tighten CF and CR and continue overnight checks to prevent insulin drip 05/23/21: * Thien received 244 units of SQ insulin yesterday * 85 units basal * 159 units bolus * poor glycemic control d/t steroid induced hyperglycemia with A1c > 10% * Fasting BSG of 157 mg/dL. Continue Lantus. * Continue once daily NPH for steroid induced hyperglycemia - increase dose for elevated blood sugars all day yesterday * Tighten carb coverage and continue overnight checks 05/22/21: * Thien received 133 units of SQ insulin + 10 units regular IV insulin yesterday * 45 units basal * 88 units bolus * poor glycemic control d/t steroid induced hyperglycemia with A1c > 10% * Fasting BSG of 241 mg/dL. Will start Lantus 20 units BID (equivalent to weight/stress of 2 based on adjusted BW). * Continue once daily NPH for steroid induced hyperglycemia. Today will be patients first dose of NPH. * Tighten carb coverage and continue overnight checks Background: * KAYLA is a 56 year old male admitted to [facility] on 05/20 with COVID-19 pneumonia * Ordered dexamethasone 6 mg IV daily * BSGs have been significantly elevated today, pharmacy consulted for glycemic management on 05/21 with HS BSG check of 410 mg/dL * Given nursing burden with insulin infusion in COVID patient, will start by adding IV insulin bolus, tightening Novolog with overnight checks, and increasing basal * Will order 0.4 unit/kg NPH with tomorrow's dose of dexamethasone PLAN FOR INPATIENT GLYCEMIC CONTROL: * Hold outpatient oral diabetes medications * Basal insulin * Lantus 80 units SQ Daily * NPH 90 units SC qAM with IV dexamethasone - hold if dexamethasone held/discontinued * Bolus insulin: * NovoLog per scale ACHS or Q6hrs while NPO * Goal Range: Low 110 mg/dL - High 140 mg/dL * Correction Factor: 5 mg/dL/unit * Nutritional / Prandial insulin per carb ratio of 1 unit per 1 grams CHO consumed PLAN FOR DISCHARGE: * HbA1c of 10.2% suggests very poor outpatient glycemic control * Patient will likely require insulin upon discharge - doses tbd
[2021-05-31] MEDS: ENOXAPARIN 80 MG/0.8 ML SYR SQ SCH (15:15)
[2021-05-31] MEDS: ATORVASTATIN 20 MG TAB PO SCH (20:12)
[2021-06-01] MEDS: ASCORBIC ACID 500 MG TAB PO SCH (08:09)
[2021-06-01] MEDS: guaiFENesin 600 MG TABCR PO SCH (08:09)
[2021-06-01] MEDS: BENZONATATE 100 MG CAPSULE PO SCH ×2 (08:10→16:07)
[2021-06-01] MEDS: amLODIPine BESYLATE 5 MG TAB PO SCH (08:10)
[2021-06-01] MEDS: ASPIRIN 81 MG ECTAB PO SCH (08:10)
[2021-06-01] MEDS: ZINC SULFATE 220 MG CAPSULE PO SCH (08:10)
[2021-06-01] MEDS: allopurinoL 100 MG TAB PO SCH (08:12)
[2021-06-01] MEDS: dexAMETHasone 20 MG in DEXTROSE 5% 25 ML IV SCH (08:23)
[2021-06-01] MEDS: INSULIN ASPART 100 UNITS/ML VIAL SC SCH ×3 (08:27→16:57)
[2021-06-01] MEDS: INSULIN HUMAN NPH SC SCH (08:34)
[2021-06-01] MEDS ORDERED: INSULIN GLARGINE 100 UNIT/ML VIAL SC SCH (09:00)
--- NOTE | 2021-06-01 09:24 | Pharmacy Report ---
Pharmacy Glycemic Short Note 2 - Date of Service June 01, 2021 - Glycemic Short BSG Results (Last 24 hours): 05/31/21 05/31/21 05/31/21 09:12 11:12 16:40 POC Glucose 218 H 261 H 118 H 05/31/21 06/01/21 06/01/21 20:10 07:36 07:37 POC Glucose 116 H 65 L* 71 OUTPATIENT ANTIDIABETIC REGIMEN: * Metformin 750 mg PO qPM * Glimepiride 2 mg PO qAM * Liraglutide 1.2 mg SC qAM * HbA1c: 10.2% (05/20/21) ASSESSMENT: 06/01/21 * Pt has received 349 units of insulin over the past 24hrs * 80 units of basal with Lantus * 90 units of NPH for steroid induced hyperglycemia with DXM 20mg IV daily * 179 units of bolus with NovoLog * BSGs [phone]/71 mg/dl * Pt with LOW BSG this AM. Will decrease basal insulin (Lantus) * Of note; last dose of Dexamethasone 20mg IV daily will be tomorrow (06/02). Will DC NPH for 06/03 since it will NOT be needed without steroids on board. 05/31/21 * Pt has received 404 units of insulin over the past 24hrs * 80 units of basal with Lantus * 90 units of NPH for steroid induced hyperglycemia * 234 units of bolus with NovoLog * BSGs 116-245 mg/dl * AM fasting at goal, 121 mg/dl, continue Lantus * Blood sugars close to goal throughout the day, No changes needed to CF/CR or NPH * Pt remains on Dexamethasone 20mg IV Daily * NOTE: Pt only received 11 units Novolog at breakfast today, d/t wrong CR used by RN (used 5 instead of 1 for CR), resulting in BSG 261mg/dl at lunch, no changes, will give correction to fix 05/30/21 * Pt has received 209 units of insulin over the past 24hrs * 80 units of basal with Lantus * 90 units of NPH for steroid induced hyperglycemia * 139 units of bolus with NovoLog * BSGs 70-190 mg/dl * AM fasting at goal, 116 mg/dl, continue Lantus * Blood sugars close to goal throughout the day, No changes needed to CF/CR or NPH * Pt remains on Dexamethasone 20mg IV Daily 05/27/21 * Pt has received 429 units of insulin over the past 24hrs * 80 units of basal with Lantus * 80 units of NPH for steroid induced hyperglycemia * 269 units of bolus with NovoLog * BSGs [phone] mg/dl * AM fasting BSG near goal range at 160 mg/dl Lantus continues to be aggressively titrated upwards daily. AM fasting BSG is trending downwards with adjustments. Will hold off on increasing Lantus today since multiple high dose increases over the last few days. Will increase Lantus tomorrow if fasting BSG same or higher tomorrow * BSGs still all above goal range after receiving high dose dexamethasone IV. Will continue to increase NPH. Current dosing is 0.5 units/kg; antione lincrease to 0.6 units/kg * No changes needed to CF/CR Background: * TR is a 56 year old male admitted to [facility] on 05/20 with COVID-19 pneumonia * Ordered dexamethasone 6 mg IV daily * BSGs have been significantly elevated today, pharmacy consulted for glycemic management on 05/21 with HS BSG check of 410 mg/dL * Given nursing burden with insulin infusion in COVID patient, will start by adding IV insulin bolus, tightening Novolog with overnight checks, and increasing basal * Will order 0.4 unit/kg NPH with tomorrow's dose of dexamethasone PLAN FOR INPATIENT GLYCEMIC CONTROL: * Hold outpatient oral diabetes medications * Basal insulin * Decrease Lantus from 80 to 75 units SQ Daily * NPH 90 units SC qAM with IV dexamethasone - hold if dexamethasone held/discontinued (plan to DC on 06/02 when DXM no longer ordered) * Bolus insulin: no change * NovoLog per scale ACHS or Q6hrs while NPO * Goal Range: Low 110 mg/dL - High 140 mg/dL * Correction Factor: 5 mg/dL/unit * Nutritional / Prandial insulin per carb ratio of 1 unit per 1 grams CHO consumed PLAN FOR DISCHARGE: * HbA1c of 10.2% 05/20/21 * Goal A1c <7% based on age/co-morbidities * A1c is greater than or equal to 10% --> consider triple therapy with metformin + basal insulin + (GLP1-RA OR prandial insulin). * Recommend continuing metformin (but maximize dosing), continuing and maximize dosing of GLP1 (liraglutide), and adding basal insulin +/- prandial insulin/correctional insulin. Recommend DC glimepiride since insulin will be started. * Pt is already on metformin as an outpatient but dosing is NOT maximized. Pt only taking 750mg PO in the evening. If patient able to tolerate increased dosing, recommend continuing to titrate metformin dosing upwards as recommended to 1,000 mg PO BIDM. Dosage increases should be made in increments of 500 mg weekly, up to 2,000 mg/day PO, given in divided doses. Doses above 2 000 mg/day may be better tolerated if divided and given 3 times per day with meals. Max: 2,550 mg/day PO, in divided doses * B12 supplementation may be necessary with intermediate metformin * GLP1: Pt is on liraglutide 1.2mg SQ daily. This dosing could be increased to 1.8 mg subcutaneously once daily * Basal insulin: Dosing TBD since current dosing is skewed by steroids * Prandial insulin: Dosing TBD since current dosing is skewed by steroids *
[2021-06-01] MEDS: DOXYCYCLINE HYCLATE 100 MG in DEXTROSE 5% 100 ML IV SCH (10:31)
[2021-06-01 11:34] VITALS: PULSE 77; TEMP 97.7; O2SAT 92
[2021-06-01 14:50] VITALS: BP 119/75
[2021-06-01] MEDS: ENOXAPARIN 80 MG/0.8 ML SYR SQ SCH (16:07)
--- NOTE | 2021-06-01 18:14 | Discharge Summary ---
Date of Service June 01, 2021 Admission HPI Per Admitting Provider Mr. Hickman is a 56-year-old white male who is morbidly obese. He has a PMHx of NIDDM, HTN, and HLD. In addition, he has listed stage III CKD (but is unaware of this diagnosis). He presented to the ED with a 5-day history of flulike symptoms. Started with headache, F/C, myalgias and arthralgias. This progressed into nausea with dry heaves. No emesis. Denies diarrhea. Was self treating with Tylenol/ibuprofen. Has now developed shortness of breath with exertion and a feeling as if he "cannot catch his breath". Denies chest pain or palpitations. Isidra had similar symptoms that started prior to patient's. 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 Work-up in the ED: Temp of 101.4 and mild tachypnea of 28. Pulse ox initially 96% on room air; however, he did drop to 88%. Responded to 2 L of supplemental oxygen. Labs revealed mild leukopenia of 2.9. Metabolic panel was unremarkable. Creatinine 1.77 (which is baseline with review of old labs). His Covid PCR test is positive. Chest x-ray shows patchy groundglass opacities bilaterally with questionable pulmonary vascular congestion. EKG is nonacute. Patient will be hospitalized for further evaluation and care. Patient is fully vaccinated. Had J&J vaccine 01/2021 Principal Diagnosis covid 19 pneumonia acute respiratory failure with hypoxia uncontrolled diabetes Discharge Exam The patient appeared well Vital signs as documented. Lungs are coarse bibasilar rales are heard Cardiac exam, Rhythm is regular.. No murmurs, rubs or gallops. Abdominal exam reveals normal bowel sounds, soft non tender, no masses Extremities are nonedematous and both pedal pulses are normal. Neurologic exam is alert and oriented, no focal loss of strength or sensation Skin is without bruises or rashes Psychologically is without concerns for anxiety or depression. Discharge Data Allergies Allergy/AdvReac Type Severity Reaction Status Date / Time No Known Allergies Allergy Verified 11/21/20 05:43 Consultations 05/20/21 09:50 ED Decision to Admit Stat 05/23/21 20:53 Consult Patient Rep / Service Excellence [Consult Patient Services] Routine Ordered Studies 08/06/21 13:19 CT angio chest PE protocol Stat Diabetes Follow up Diabetes Follow-up Needed for HgbA1c >9% Hospital Course (1) Pneumonia due to COVID-19 virus: -Acute respiratory failure with hypoxia secondary to Covid pneumonia patient initially with fever, hypoxemia, and mild tachypnea in addition to leukopenia and patchy opacities seen on chest x-ray. - - on hospital day #6 (day 9-10 of symptom onset), his respiratory status started to decline and he was requiring up to 10L highflow to maintain a pulse ox in the low 90's and with very little exertion (such as rolling), he would desaturate to 84% patient on decadron 20mg x 5 d than 10 mg a day (increased from 6 given respiratory decline) -Patient has completed a full course of remdesivir-05/29, has finally had reduction of oxygen requirement as mentioned in the subjective portion will attempt at home and oxygen to convalesce as he is seemingly is stable although not improving dramatically or worsening dramatically -Daily low-dose Lasix dosing follow renal function -Completed CAP antibiotics of Rocephin azithromycin - In addition, he was initially on lovenox for prophylaxis but with decline is his respiratory status, this was changed empirically to treatment dose until stable enough to have CTA - CTA performed showing no obvious PE and multifocal airspace disease consistent with atypical PNA - - blood cultures (1/4 tubes) growing Coag Negative Staph- likely skin contaminant - - pharmacy has helped with glycemic control-- appreciate this. Made more of a challenge because of patient's dietary indiscretion -. - Proning encouraged; however, patient not able given his weight and back pain. Side-lying encouraged when sleeping and out of bed to chair to help aerate the lungs - Zinc/vitamin C for immune support - APAP as needed for fever - cont incentive spirometry Echocardiogram showed EF of 60 to 65%. No significant valvular disease. Mild RV dilation -Highly suspect obesity hypoventilation syndrome/COLT. Will need sleep apnea testing as an outpatient. Intolerant to trial of BiPAP while in house (2) Hypoxemia: * Acute respiratory failure with hypoxia secondary to COVID-19 pneumonia * Vesna on 2 L nasal cannula at time of discharge at home and portable unit * high dose dexamethasone as help patient will be home on tapering doses of prednisone speech has been on steroids for so long care (3) Leukopenia: * Likely secondary to Covid infection. Improved/resolved (4) CHI (acute kidney injury): * Metformin will restart as an outpatient holding losartan because of his low blood pressure * Renal function has overall improved * (5) Hyperglycemia: * Diabetes spurred on by steroids and dietary indiscretion * A1c above goal * Home regiment counseled on dietary discretion and close follow-up with his primary care physician (6) Uncontrolled type 2 diabetes mellitus: * Patient is challenged with dietary restraint and is outpatient regiment which is multimodal (7) Stage 3b chronic kidney disease: * Continue to hold ARB Previously on losartan patient's blood pressure low at discharge holding losartan (8) Hypertension: * Norvasc resumed and BP controlled * BP currently controlled with discontinuation of losartan * May need to permanently discontinue losartan. (9) Hyperlipidemia: * continue statin therapy (10) Obesity: * likely has undiagnosed COLT-- need sleep study as an OP * Total Time Total Time Spent Total Time Spent (In Minutes): It required greater than 30 minutes to prepare this patient for discharge Discharge Plan Discharge Items Patient Disposition: Home - Self-Care Reason For Visit: COVID PNA WITH HYPOXEMIA Discharge Diagnosis: covid pneumonia acute respiratory failure with hypoxia diabetes Condition on Discharge: Good Activity: Per Instructions section Activity Comment: gradually increase activity Non-emergency contact: Primary Care Provider Call non-emergency contact if: you have any medication questions, your symptoms worsen and you have a fever Follow-up/Referrals: Jake Linder [Primary Care Provider] - (PLEASE FOLLOW-UP WITH YOUR PRIMARY CARE PROVIDER WITHIN THE NEXT WEEK FOR EITHER A VIDEO/PHONE APPOINTMENT.) Diet: Carb Consistent or DM2 Addtl Attending Provider Instructions: please be on home isolation until you are symptom free follow up with family doctor by phone/video visit this week wear your oxygen at all times, your family doctor will re check you to see if its time to stop you will be on tapering steroids which will make your blood sugars up so be extra careful with your diet Home Isolation COVID-19 Instructions The following information about Home Isolation is from the CDC Website: https://www.cdc.gov/coronavirus/2019-ncov/hcp/jwtzifka-kddvalv-gahkaz.html Stay home except to get medical care People who are mildly ill with COVID-19 are able to isolate at home during their illness. You should restrict activities outside your home, except for getting medical care. Do not go to work, school, or public areas. Avoid using public transportation, ride-sharing, or taxis. Separate yourself from other people and animals in your home People: As much as possible, you should stay in a specific room and away from other people in your home. Also, you should use a separate bathroom, if available. Animals: You should restrict contact with pets and other animals while you are sick with COVID-19, just like you would around other people. Although there have not been reports of pets or other animals becoming sick with COVID-19, it is still recommended that people sick with COVID-19 limit contact with animals until more information is known about the virus. When possible, have another member of your household care for your animals while you are sick. If you are sick with COVID-19, avoid contact with your pet, including petting, snuggling, being kissed or licked, and sharing food. If you must care for your pet or be around animals while you are sick, wash your hands before and after you interact with pets and wear a face mask. Call ahead before visiting your doctor If you have a medical appointment, call the healthcare provider and tell them that you have or may have COVID-19. This will help the healthcare providers office take steps to keep other people from getting infected or exposed. Wear a face mask You should wear a face mask when you are around other people (e.g., sharing a room or vehicle) or pets and before you enter a healthcare providers office. If you are not able to wear a face mask (for example, because it causes trouble breathing), then people who live with you should not stay in the same room with you, or they should wear a face mask if they enter your room. Cover your coughs and sneezes Cover your mouth and nose with a tissue when you cough or sneeze. Throw used tissues in a lined trash can. Immediately wash your hands with soap and water for at least 20 seconds or, if soap and water are not available, clean your hands with an alcohol-based hand technical aide that contains at least 60% alcohol. Clean your hands often Wash your hands often with soap and water for at least 20 seconds, especially after blowing your nose, coughing, or sneezing; going to the bathroom; and before eating or preparing food. If soap and water are not readily available, use an alcohol-based hand technical aide with at least 60% alcohol, covering all surfaces of your hands and rubbing them together until they feel dry. Soap and water are the best option if hands are visibly dirty. Avoid touching your eyes, nose, and mouth with unwashed hands. Avoid sharing personal household items You should not share dishes, drinking glasses, cups, eating utensils, towels, or bedding with other people or pets in your home. After using these items, they should be washed thoroughly with soap and water. Clean all high-touch surfaces everyday High touch surfaces include counters, tabletops, doorknobs, bathroom fixtures, toilets, phones, keyboards, tablets, and bedside tables. Also, clean any surfaces that may have blood, stool, or body fluids on them. Use a household cleaning spray or wipe, according to the label instructions. Labels contain instructions for safe and effective use of the cleaning product including precautions you should take when applying the product, such as wearing gloves and making sure you have good ventilation during use of the product. Monitor your symptoms Seek prompt medical attention if your illness is worsening (e.g., difficulty breathing).Beforeseeking care, call your healthcare provider and tell them that you have, or are being evaluated for, COVID-19. Put on a face mask before you enter the facility. These steps will help the healthcare providers office to keep other people in the office or waiting room from getting infected or exposed. Ask your healthcare provider to call the local or state health department. Persons who are placed under active monitoring or facilitated self- monitoring should follow instructions provided by their local health department or occupational health professionals, as appropriate. When working with your local health department check their available hours. If you have a medical emergency and need to call 911, notify the dispatch personnel that you have, or are being evaluated for COVID-19. If possible, put on a face mask before emergency medical services arrive. Discontinuing home isolation Patients with confirmed COVID-19 should remain under home isolation precautions until the risk of secondary transmission to others is thought to be low. The decision to discontinue home isolation precautions should be made on a [id number] basis, in consultation with healthcare providers and state and local health departments. Pending Studies at Discharge: No Stand-Alone Forms: My [facility], Smoking Cessation Medications and DC Order Prescriptions: New codeine-guaifenesin 10-100 mg/5 mL Liquid 10 ml PO Q6H PRN (Reason: cough) Qty: 120 RF: 0 prednisone 10 mg tablet 10 mg PO UD Qty: 40 RF: 0 (DME) Oxygen Home Liters Per Minute See Rx Instructions .Route Qty: 1 RF: 0 Continued liraglutide 0.6 mg/0.1 mL (18 mg/3 mL) pen injector 1.2 mg subcut QAM Qty: 18 RF: 4 atorvastatin [Lipitor] 20 mg Tablet 20 mg PO HS RF: 0 glimepiride 2 mg Tablet 2 mg PO QAM RF: 0 amlodipine 10 mg Tablet 10 mg PO QAM RF: 0 metformin 750 mg Tablet Extended Release 24 Hr 750 mg PO PM RF: 0 aspirin [Aspir-81] 81 mg Tablet,Delayed Release (Dr/Ec) 81 mg PO QAM RF: 0 cetirizine [Zyrtec] 10 mg Tablet 10 mg PO QAM RF: 0 allopurinol 100 mg tablet 100 mg PO QAM RF: 0 Eliquis 2.5 mg tablet 2.5 mg PO BID Qty: 60 RF: 0 Discontinued losartan 100 mg Tablet 100 mg PO QAM RF: 0 oxycodone-acetaminophen [Percocet] 5-325 mg tablet 2 tab PO Q4H PRN (Reason: pain) Qty: 24 RF: 0 Discharge Orders: Discharge Order (Routine); Ordered 06/01/21 Ordered By: Shan Verdugo/Other Patient Handouts: Understanding Carbohydrates, Diabetes: Meal Planning Admission Data Admit Date/Time: 05/20/21 10:42 Attending Provider: Shan Nieto Admit Provider: Eagle Torrez Primary Care Provider: Jake Linder Other Providers: Eagle Torrez Other Interventions: Discharge Summary Assessment (RN) Last Done: 06/01/21 14:49 Coding Level of Care Code D/C DAY MANAGEMENT >30 MINS Diagnoses Pneumonia due to COVID-19 virus U07.1; J12.82 Hypoxemia R09.02 Leukopenia D72.819 Leukopenia type: unspecified CHI (acute kidney injury) N17.9 Hyperglycemia R73.9 Uncontrolled type 2 diabetes mellitus E11.65 Stage 3b chronic kidney disease N18.3 Hypertension I10 Hyperlipidemia E78.5 Obesity E66.9
== END 2021-06-01 16:58 | disposition home or self-care (01) | DRG 177 ==
LOC: ED 07:12 → 3W 10:42 → SUATTDRO 10:42 → 3W 15:25 → 2W 05-24 10:59